=== PATIENT | female | born 1970 | race Caucasian/White ===

== ENCOUNTER 2016-09-02 13:30 | Inpatient (IN) | payer MEDICAID ==
[~2016-09-02] VITALS: Ht 162.6 cm; Wt 61.4 kg
[~2016-09-02 13:30] MED LIST: ALPR0.25 PO; BENA5TAB14 PO; SERT-135 PO
[2016-09-02 15:00] LABS: Albumin 3.5 g/dL (3.4-5.0); Calcium 8.6 mg/dL (8.5-10.1); Potassium 3.8 mmol/L (3.5-5.1)
[2016-09-02 15:05] LABS: Bilirubin, Total 0.2 mg/dL (0.2-1.0); Total Protein 7.3 g/dL (6.4-8.2)
[2016-09-02] MEDS ORDERED: PIPERACILLIN-TAZOB 3.375GM 100 ML IV ONE (16:30)
[2016-09-02 16:56] LABS: Basophils # (auto) 0 uL; Basophils % (auto) 0.3 % (0.0-2.0); Eosinophils # (auto) 0.2 uL; Hematocrit 43.6 % (36.0-46.0); Hemoglobin 13.7 g/dL (12.2-16.2); Lymphocytes # (auto) 1.7 uL; Mean Corpuscular Hemoglobin 27.1 pg (28.0-32.0); Mean Corpuscular Hgb Conc. 31.4 g/dL (32.0-36.0); Mean Corpuscular Volume 86.4 fL (80.0-100.0); Mean Platelet Volume 8.7 fL (7.4-10.4); Monocytes # (auto) 0.6 uL; Monocytes % (auto) 5.8 % (0.0-12.0); Neutrophils % (auto) 75.9 % (37.0-80.0); Platelet Count (auto) 385 10^3/uL (140-450); Red Cell Distribution Width 14.7 % (11.6-16.0); White Blood Cell 10.6 10^3/uL (4.4-10.8)
[2016-09-02] MEDS: SODIUM CHLORIDE 0.9% 1,000 ML IV SCH ×2 (16:58→21:46)
[2016-09-02] MEDS ORDERED: HYDROcodone-ACET 5/325MG TAB PO PRN (17:00)
[2016-09-02] MEDS ORDERED: MORPHINE SULF INJ 2 MG/ML SYRINGE 1ML IV PRN (17:00)
[2016-09-02] MEDS ORDERED: ALPRAZolam 0.25 MG TAB PO PRN (17:00)
[2016-09-02] MEDS ORDERED: TEMAZEPAM 15 MG CAP PO PRN (17:00)
[2016-09-02] MEDS ORDERED: PANTOPRAZOLE SODIUM 40 MG/10 ML VIAL IV ONE (17:00)
[2016-09-02] MEDS ORDERED: NITROGLYCERIN 0.4 MG SL TAB SL PRN (17:00)
[2016-09-02] MEDS ORDERED: cloNIDine HCL 0.1 MG TAB PO PRN (17:00)
[2016-09-02] MEDS: BENAZEPRIL HCL 10 MG TAB PO SCH (17:04)
[2016-09-02] MEDS: MORPHINE SULF INJ 2 MG/ML SYRINGE 1ML IV PRN ×2 (17:04→21:47)
[2016-09-02] MEDS: MULTIPLE VITAMIN TAB PO SCH (17:04)
[2016-09-02] MEDS: ONDANSETRON HCL 4 MG/2 ML VIAL IV PRN (17:04)
[2016-09-02] MEDS ORDERED: cefTRIAXone 1GM/50ML D5W 50 ML IV ONE (17:15)
[2016-09-02] MEDS ORDERED: metroNIDAZOLE 500MG/100ML 100 ML IV ONE (17:15)
[2016-09-02 17:31] LABS: INR 0.98 (0.9-1.15); Prothrombin Time 10.1 sec (9.37-12.3)
[2016-09-02 19:58] LABS: Urine Bilirubin Negative (Negative); Urine Blood Negative /uL (Negative); Urine Color Yellow (Yellow); Urine Glucose Normal (Normal); Urine Ketone Negative (Negative); Urine Mucus FEW (None Seen); Urine Nitrite Negative (Negative); Urine RBC <1 /hpf (0 - 4); Urine Squamous Epithelial Cell FEW /hpf (<5); Urine Urobilinogen Normal (Negative); Urine pH 5.5 (5.0-8.0)
[2016-09-02] MEDS: metroNIDAZOLE 500MG/100ML 100 ML IV SCH (21:46)
[2016-09-02] MEDS: PANTOPRAZOLE SODIUM 40 MG/10 ML VIAL IV SCH (21:46)
[2016-09-02] MEDS ORDERED: FAMOTIDINE 20 MG TAB PO SCH (22:00)
[2016-09-02 22:03] VITALS: BP 90/65
[2016-09-03] MEDS: MORPHINE SULF INJ 2 MG/ML SYRINGE 1ML IV PRN ×3 (02:11→09:44)
[2016-09-03 04:39] VITALS: BP 99/58
[2016-09-03] MEDS: metroNIDAZOLE 500MG/100ML 100 ML IV SCH ×3 (05:21→21:42)
[2016-09-03 06:17] LABS: Basophils # (auto) 0 uL; Basophils % (auto) 0.3 % (0.0-2.0); DEFINITIVE VIEW TRANSMISSION; Eosinophils # (auto) 0.1 uL; Eosinophils % (auto) 1.6 % (0.0-7.0); Hematocrit 37.8 % (36.0-46.0); Hemoglobin 11.7 g/dL (12.2-16.2); Lymphocytes # (auto) 1.7 uL; Lymphocytes % (auto) 18.1 % (10.0-50.0); Mean Corpuscular Hemoglobin 26.7 pg (28.0-32.0); Mean Corpuscular Hgb Conc. 30.9 g/dL (32.0-36.0); Mean Corpuscular Volume 86.3 fL (80.0-100.0); Mean Platelet Volume 7.9 fL (7.4-10.4); Monocytes # (auto) 0.6 uL; Monocytes % (auto) 6.8 % (0.0-12.0); Neutrophils # (auto) 6.7 uL; Neutrophils % (auto) 73.2 % (37.0-80.0); Platelet Count (auto) 322 10^3/uL (140-450); Red Cell Distribution Width 14.4 % (11.6-16.0); White Blood Cell 9.2 10^3/uL (4.4-10.8)
[2016-09-03 07:00] LABS: Albumin 2.8 g/dL (3.4-5.0); BUN/Creatinine Ratio 9.7; Bilirubin, Total 0.4 mg/dL (0.2-1.0); Calcium 7.9 mg/dL (8.5-10.1); Potassium 4.1 mmol/L (3.5-5.1)
[2016-09-03 08:37] VITALS: BP 95/70
[2016-09-03] MEDS: PANTOPRAZOLE SODIUM 40 MG/10 ML VIAL IV SCH ×2 (09:42→21:42)
[2016-09-03] MEDS: cefTRIAXone 1GM/50ML D5W 50 ML IV SCH (09:42)
[2016-09-03] MEDS: MULTIPLE VITAMIN TAB PO SCH (09:42)
[2016-09-03] MEDS: BENAZEPRIL HCL 10 MG TAB PO SCH (09:43)
[2016-09-03] MEDS: SODIUM CHLORIDE 0.9% 1,000 ML IV SCH ×2 (09:52→17:50)
[2016-09-03 13:19] VITALS: BP 123/73
[2016-09-03 13:21] VITALS: BP 123/73
[2016-09-03] MEDS: HYDROmorphone HCL 2 MG/ML VL IV PRN ×3 (13:57→21:43)
[2016-09-03 17:12] VITALS: BP 108/63
[2016-09-03] MEDS: BOOST PLUS 8 ounce PO SCH (18:13)
[2016-09-03 18:24] LABS: Hematocrit 35.1 % (36.0-46.0)
[2016-09-03 22:10] VITALS: BP 123/75
[2016-09-03] MEDS ORDERED: diphenhdrAMINE HCL 50 MG/1 ML VL IV ONE (23:00)
[2016-09-03] MEDS: ONDANSETRON HCL 4 MG/2 ML VIAL IV PRN (23:18)
[2016-09-04] MEDS: SODIUM CHLORIDE 0.9% 1,000 ML IV SCH ×4 (04:53→23:57)
[2016-09-04] MEDS: HYDROmorphone HCL 2 MG/ML VL IV PRN ×5 (04:53→22:09)
[2016-09-04 05:11] VITALS: BP 125/75
[2016-09-04 06:02] LABS: Basophils # (auto) 0 uL; Basophils % (auto) 0.4 % (0.0-2.0); DEFINITIVE VIEW TRANSMISSION; Eosinophils # (auto) 0.1 uL; Eosinophils % (auto) 2.1 % (0.0-7.0); Hematocrit 35.8 % (36.0-46.0); Hemoglobin 11.1 g/dL (12.2-16.2); Lymphocytes % (auto) 29.2 % (10.0-50.0); Mean Corpuscular Hemoglobin 26.7 pg (28.0-32.0); Mean Corpuscular Hgb Conc. 30.9 g/dL (32.0-36.0); Mean Corpuscular Volume 86.3 fL (80.0-100.0); Mean Platelet Volume 8.1 fL (7.4-10.4); Monocytes # (auto) 0.5 uL; Monocytes % (auto) 7.8 % (0.0-12.0); Neutrophils # (auto) 4.2 uL; Neutrophils % (auto) 60.5 % (37.0-80.0); Platelet Count (auto) 308 10^3/uL (140-450); White Blood Cell 6.9 10^3/uL (4.4-10.8)
[2016-09-04 06:38] LABS: Albumin 2.8 g/dL (3.4-5.0); BUN/Creatinine Ratio 9.3; Calcium 8.1 mg/dL (8.5-10.1)
[2016-09-04] MEDS: metroNIDAZOLE 500MG/100ML 100 ML IV SCH ×3 (06:40→22:18)
[2016-09-04 06:41] LABS: Bilirubin, Total 0.3 mg/dL (0.2-1.0); Total Protein 5.9 g/dL (6.4-8.2)
[2016-09-04] MEDS: ACETAMINOPHEN 325 MG TAB PO PRN ×4 (06:50→21:05)
[2016-09-04] MEDS: BOOST PLUS 8 ounce PO SCH ×3 (08:00→18:00)
[2016-09-04 09:00] VITALS: BP 116/71
[2016-09-04] MEDS: PANTOPRAZOLE SODIUM 40 MG/10 ML VIAL IV SCH ×2 (09:35→22:18)
[2016-09-04] MEDS: MULTIPLE VITAMIN TAB PO SCH (09:35)
[2016-09-04] MEDS: cefTRIAXone 1GM/50ML D5W 50 ML IV SCH (09:35)
[2016-09-04] MEDS: BENAZEPRIL HCL 10 MG TAB PO SCH (09:35)
[2016-09-04 13:00] VITALS: BP 105/62
[2016-09-04 17:05] VITALS: BP 133/71
[2016-09-04 21:30] VITALS: BP 131/76
[2016-09-05] MEDS ORDERED: diphenhdrAMINE HCL 50 MG/1 ML VL IV ONE
[2016-09-05 05:39] VITALS: BP 154/94
[2016-09-05] MEDS: ACETAMINOPHEN 325 MG TAB PO PRN (07:03)
[2016-09-05] MEDS: BOOST PLUS 8 ounce PO SCH ×2 (08:41→11:13)
[2016-09-05] MEDS: cefTRIAXone 1GM/50ML D5W 50 ML IV SCH (09:12)
[2016-09-05 09:28] VITALS: BP 138/91
[2016-09-05 10:08] LABS: Hematocrit 37.1 % (36.0-46.0); Hemoglobin 11.4 g/dL (12.2-16.2)
[2016-09-05] MEDS: PANTOPRAZOLE SODIUM 40 MG/10 ML VIAL IV SCH (10:22)
[2016-09-05] MEDS: MULTIPLE VITAMIN TAB PO SCH (10:25)
[2016-09-05] MEDS: BENAZEPRIL HCL 10 MG TAB PO SCH (10:25)
[2016-09-05] MEDS: SODIUM CHLORIDE 0.9% 1,000 ML IV SCH (10:26)
[2016-09-05 13:00] VITALS: BP 147/93
== END 2016-09-05 16:56 | disposition home or self-care (01) | DRG 244 ==
LOC: EDUNIT# 13:30 → ER 13:33 → TELE 13:34 → TELE-CENTR 20:22 → CENTRAL 09-04 15:19
PROVIDERS: ADMIT Internal Medicine; ATTEND Internal Medicine Pulmonary Disease
DX: K57.33 Diverticulitis of large intestine without perforation or abscess with bleeding (principal); K85.90 Acute pancreatitis without necrosis or infection, unspecified; E44.0 Moderate protein-calorie malnutrition; E88.09 Other disorders of plasma-protein metabolism, not elsewhere classified; I10 Essential (primary) hypertension; E86.0 Dehydration; F41.9 Anxiety disorder, unspecified; F32.9 Major depressive disorder, single episode, unspecified; Z87.11 Personal history of peptic ulcer disease; D63.8 Anemia in other chronic diseases classified elsewhere; Z82.3 Family history of stroke; Z82.49 Family history of ischemic heart disease and other diseases of the circulatory system; Z83.3 Family history of diabetes mellitus; K57.90 Diverticulosis of intestine, part unspecified, without perforation or abscess without bleeding; Z98.51 Tubal ligation status; Z80.9 Family history of malignant neoplasm, unspecified; F17.200 Nicotine dependence, unspecified, uncomplicated; Z68.23 Body mass index [BMI] 23.0-23.9, adult; K52.9 Noninfective gastroenteritis and colitis, unspecified
CPT/HCPCS: 36415; 74176; 80053; 81001; 82150; 83540; 83605; 83690; 84702; 85014; 85018; 85025; 85610; 85652; 87040; 87045; 87493; 87899; 96365; 96367; 96368; 96375; C9113; J0696; J2405; J2543; J3490

== ENCOUNTER 2016-11-04 15:17 | Emergency (ER) | payer MEDICAID ==
[~2016-11-04] VITALS: Ht 167.6 cm; Wt 72.6 kg
[2016-11-04 16:15] LABS: Basophils # (auto) 0 uL; Basophils % (auto) 0.4 % (0.0-2.0); Eosinophils # (auto) 0.3 uL; Eosinophils % (auto) 2.7 % (0.0-7.0); Hematocrit 43.5 % (36.0-46.0); Hemoglobin 14.1 g/dL (12.2-16.2); Lymphocytes # (auto) 2.4 uL; Lymphocytes % (auto) 21.1 % (10.0-50.0); Mean Corpuscular Hemoglobin 27.4 pg (28.0-32.0); Mean Corpuscular Hgb Conc. 32.5 g/dL (32.0-36.0); Mean Corpuscular Volume 84.3 fL (80.0-100.0); Mean Platelet Volume 8.2 fL (7.4-10.4); Monocytes # (auto) 1.1 uL; Monocytes % (auto) 9.3 % (0.0-12.0); Neutrophils # (auto) 7.7 uL; Neutrophils % (auto) 66.5 % (37.0-80.0); Platelet Count (auto) 400 10^3/uL (140-450); Red Cell Distribution Width 15.3 % (11.6-16.0); White Blood Cell 11.6 10^3/uL (4.4-10.8)
[2016-11-04 16:43] LABS: Albumin 3.8 g/dL (3.4-5.0); BUN/Creatinine Ratio 26.4; Bilirubin, Total 0.6 mg/dL (0.2-1.0); Calcium 9.1 mg/dL (8.5-10.1); Potassium 3.6 mmol/L (3.5-5.1); Total Protein 8.1 g/dL (6.4-8.2)
[2016-11-04] MEDS ORDERED: SODIUM CHLORIDE 0.9% 2,000 ML IV ONE (23:00)
[2016-11-04] MEDS ORDERED: ONDANSETRON HCL 4 MG/2 ML VIAL IV ONE (23:00)
[2016-11-04] MEDS ORDERED: MORPHINE SULFATE 4 MG/ML SYRG IV ONE (23:00)
[2016-11-05] MEDS ORDERED: IOHEXOL 300 MG/ML 100ML BOTTLE IJ ONE
[2016-11-05 02:05] LABS: Urine RBC None Seen /hpf (0 - 4)
[2016-11-05 02:26] LABS: Urine Bilirubin Negative (Negative); Urine Blood Negative /uL (Negative); Urine Color Yellow (Yellow); Urine Glucose Normal (Normal); Urine Ketone Negative (Negative); Urine Nitrite Negative (Negative); Urine Squamous Epithelial Cell FEW /hpf (<5); Urine Urobilinogen Normal (Negative); Urine pH 5.5 (5.0-8.0)
[2016-11-05 04:28] VITALS: BP 96/57
== END 2016-11-05 04:33 | disposition home or self-care (01) ==
LOC: ER 15:17 → EDUNIT# 15:17 → EDBD 15:17 → ER 11-05 04:33
DX: R10.30 Lower abdominal pain, unspecified (principal); I10 Essential (primary) hypertension; Z87.11 Personal history of peptic ulcer disease; Z98.51 Tubal ligation status
CPT/HCPCS: 36415; 74177; 80053; 81001; 81025; 84702; 85025; 94761; 96361; 96374; 96375; 99285; J2270; J2405; J7030; Q9967

== ENCOUNTER 2016-11-29 15:15 | Observation (INO) | payer MEDICAID ==
[~2016-11-29] VITALS: Ht 172.7 cm; Wt 72.6 kg
[2016-11-29] MEDS ORDERED: SODIUM CHLORIDE 0.9% 1,000 ML IVB ONE (17:12)
[2016-11-29] MEDS ORDERED: METOCLOPRAMIDE HCL 5MG/ml INJ 2ml VIAL IV ONE (17:15)
[2016-11-29] MEDS ORDERED: NALBUPHINE HCL 10 MG/1ml INJECTION IV ONE (17:15)
[2016-11-29 17:35] LABS: Urine Bilirubin Negative (Negative); Urine Color Yellow (Yellow); Urine Glucose Normal (Normal); Urine Mucus FEW (None Seen); Urine Nitrite Negative (Negative); Urine RBC 132 /hpf (0 - 4); Urine Squamous Epithelial Cell FEW /hpf (<5); Urine Urobilinogen Normal (Negative); Urine pH 5.5 (5.0-8.0)
[2016-11-29 17:43] LABS: Basophils # (auto) 0 uL; Eosinophils # (auto) 0.1 uL; Eosinophils % (auto) 0.9 % (0.0-7.0); Hemoglobin 13.3 g/dL (12.2-16.2); Lymphocytes # (auto) 0.4 uL; Lymphocytes % (auto) 4.3 % (10.0-50.0); Mean Corpuscular Hemoglobin 27.5 pg (28.0-32.0); Mean Corpuscular Hgb Conc. 32.5 g/dL (32.0-36.0); Mean Corpuscular Volume 84.6 fL (80.0-100.0); Mean Platelet Volume 8.1 fL (7.4-10.4); Monocytes # (auto) 0.5 uL; Monocytes % (auto) 5.1 % (0.0-12.0); Neutrophils # (auto) 8.3 uL; Neutrophils % (auto) 89.7 % (37.0-80.0); Platelet Count (auto) 297 10^3/uL (140-450); Red Cell Distribution Width 15.6 % (11.6-16.0); White Blood Cell 9.2 10^3/uL (4.4-10.8)
[2016-11-29 17:49] LABS: Urine Blood 2+ /uL (Negative); Urine Ketone 1+ (Negative)
[2016-11-29 17:54] LABS: Albumin 3.3 g/dL (3.4-5.0); BUN/Creatinine Ratio 15.6; Bilirubin, Total 0.9 mg/dL (0.2-1.0); Calcium 8.3 mg/dL (8.5-10.1); Potassium 3.5 mmol/L (3.5-5.1); Total Protein 6.7 g/dL (6.4-8.2)
[2016-11-29 20:31] VITALS: BP 125/72
== END 2016-11-29 20:23 | disposition home or self-care (01) | DRG 463 ==
LOC: EDBD 15:15 → ER 15:23 → OVERFLOW 17:14 → ER 20:23
PROVIDERS: ADMIT Emergency Medicine; ATTEND Emergency Medicine
DX: N39.0 Urinary tract infection, site not specified (principal); I10 Essential (primary) hypertension; F41.9 Anxiety disorder, unspecified; F32.9 Major depressive disorder, single episode, unspecified; Z82.49 Family history of ischemic heart disease and other diseases of the circulatory system; Z87.11 Personal history of peptic ulcer disease; Z83.3 Family history of diabetes mellitus; Z82.3 Family history of stroke
CPT/HCPCS: 36415; 74176; 80053; 81001; 83690; 83735; 84443; 85025; 93005; 96374; 96375; 99285; G0378; J2300; J2765

== ENCOUNTER 2017-01-12 11:37 | Emergency (ER) | payer MEDICAID ==
[~2017-01-12] VITALS: Ht 162.6 cm; Wt 72.6 kg
[2017-01-12] MEDS ORDERED: ACTIVATED CHARCOAL 50 GM/240 ML SOL PO ONE (12:00)
[2017-01-12] MEDS ORDERED: SODIUM CHLORIDE 0.9% 1,000 ML IV ONE (12:10)
[2017-01-12 12:34] LABS: Basophils # (auto) 0.1 uL; Basophils % (auto) 0.4 % (0.0-2.0); CONDITION Y; Eosinophils # (auto) 0 uL; Eosinophils % (auto) 0.2 % (0.0-7.0); Hematocrit 41.7 % (36.0-46.0); Hemoglobin 13.7 g/dL (12.2-16.2); Lymphocytes # (auto) 2.1 uL; Lymphocytes % (auto) 17.9 % (10.0-50.0); Mean Corpuscular Hemoglobin 27.5 pg (28.0-32.0); Mean Corpuscular Hgb Conc. 32.9 g/dL (32.0-36.0); Mean Corpuscular Volume 83.8 fL (80.0-100.0); Mean Platelet Volume 8.2 fL (7.4-10.4); Monocytes # (auto) 0.9 uL; Monocytes % (auto) 7.4 % (0.0-12.0); Neutrophils # (auto) 8.7 uL; Neutrophils % (auto) 74.1 % (37.0-80.0); Platelet Count (auto) 368 10^3/uL (140-450); Red Cell Distribution Width 16.9 % (11.6-16.0); White Blood Cell 11.7 10^3/uL (4.4-10.8)
[2017-01-12 13:12] LABS: Potassium 3.8 mmol/L (3.5-5.1)
[2017-01-12 13:17] LABS: Albumin 3.8 g/dL (3.4-5.0); BUN/Creatinine Ratio 21.8
[2017-01-12 13:19] LABS: Salicylate < 1.7 mg/dL (2.8-20.0)
[2017-01-12 13:21] LABS: Acetaminophen < 2.0 ug/mL (10-30)
[2017-01-12 13:26] LABS: Bilirubin, Total 0.8 mg/dL (0.2-1.0); Total Protein 7.7 g/dL (6.4-8.2)
[2017-01-12] MEDS ORDERED: LORazepam 2MG/ML-1ML VIAL IV ONE (13:45)
[2017-01-12 17:09] LABS: Urine Bilirubin Negative (Negative); Urine Blood Negative /uL (Negative); Urine Color Yellow (Yellow); Urine Glucose Normal (Normal); Urine Hyaline Cast FEW /lpf (0 - 2); Urine Ketone TRACE (Negative); Urine Mucus FEW (None Seen); Urine Nitrite Negative (Negative); Urine RBC 1 /hpf (0 - 4); Urine Squamous Epithelial Cell FEW /hpf (<5); Urine Urobilinogen Normal (Negative); Urine pH 5.5 (5.0-8.0)
[2017-01-12 19:09] VITALS: BP 151/98
[2017-01-12] MEDS ORDERED: TEMAZEPAM 15 MG CAP PO ONE (23:00)
== END 2017-01-13 11:34 | disposition home or self-care (01) ==
LOC: EDBD 11:37 → ER 11:39
DX: R10.9 Unspecified abdominal pain (principal); R11.2 Nausea with vomiting, unspecified; R45.851 Suicidal ideations; R51 Headache; F32.9 Major depressive disorder, single episode, unspecified; I10 Essential (primary) hypertension; F17.210 Nicotine dependence, cigarettes, uncomplicated; F15.10 Other stimulant abuse, uncomplicated; Z98.51 Tubal ligation status
CPT/HCPCS: 36415; 74176; 80053; 80307; 80329; 81001; 84702; 85025; 93005; 94761; 96361; 96374; 99285; J2060; J7030

== ENCOUNTER 2017-12-31 06:58 | Emergency (ER) | payer MEDICAID ==
[~2017-12-31] VITALS: Ht 162.6 cm; Wt 57.2 kg
[2017-12-31] MEDS ORDERED: SODIUM CHLORIDE 0.9% 1,000 ML IV ONE (07:53)
[2017-12-31] MEDS ORDERED: KETOROLAC TROMETH 30 MG/ML 1ML VIAL IV ONE (08:00)
[2017-12-31] MEDS ORDERED: diphenhdrAMINE HCL 50 MG/1 ML VL IV ONE (08:00)
[2017-12-31] MEDS ORDERED: LORazepam 2MG/ML-1ML VIAL IV ONE (08:00)
[2017-12-31 08:16] LABS: Basophils # (auto) 0.1 uL; Basophils % (auto) 0.7 % (0.0-2.0); Eosinophils # (auto) 0.1 uL; Eosinophils % (auto) 0.7 % (0.0-7.0); Hematocrit 46.1 % (36.0-46.0); Hemoglobin 15.1 g/dL (12.2-16.2); Lymphocytes # (auto) 1.2 uL; Lymphocytes % (auto) 11.1 % (10.0-50.0); Mean Corpuscular Hemoglobin 28.1 pg (28.0-32.0); Mean Corpuscular Hgb Conc. 32.8 g/dL (32.0-36.0); Mean Corpuscular Volume 85.7 fL (80.0-100.0); Monocytes # (auto) 0.7 uL; Monocytes % (auto) 6.3 % (0.0-12.0); Neutrophils # (auto) 9.1 uL; Neutrophils % (auto) 81.2 % (37.0-80.0); Nucleated Red Blood Cells % 0.1 %; Platelet Count (auto) 312 10^3/uL (140-450); Red Blood Cells 5.38 10^6/uL (4.0-5.20); Red Cell Distribution Width 14.7 % (11.8-14.3); White Blood Cell 11.2 10^3/uL (4.4-10.8)
[2017-12-31 08:34] LABS: Albumin 3.7 g/dL (3.4-5.0); BUN/Creatinine Ratio 15.9; Bilirubin, Total 0.2 mg/dL (0.2-1.0); Calcium 9.3 mg/dL (8.5-10.1)
[2017-12-31 11:00] VITALS: BP 156/88
[2017-12-31 15:47] LABS: Urine Pregnacy Test Negative (Negative)
[2017-12-31 15:55] LABS: Urine Amorphous Crystal FEW /hpf (None Seen); Urine Bacteria FEW /hpf (None Seen); Urine Blood Negative /uL (Negative); Urine Mucus FEW (None Seen); Urine Specific Gravity 1.019 (1.001-1.035); Urine WBC 5 /hpf (0 - 5)
[2017-12-31 16:22] LABS: Alcohol, Urine < 3.0 mg/dL (0-5); Amphetamine Screen, Urine POSITIVE (NEGATIVE); Barbiturate Scree,Urine NEGATIVE (NEGATIVE); Benzodiazephine Screen, Urine NEGATIVE (NEGATIVE); Cannabinoid Screen, Urine NEGATIVE (NEGATIVE); Cocaine Screen, Urine NEGATIVE (NEGATIVE); Opiate Scree,Urine NEGATIVE (NEGATIVE); Phencyclidine Screen, Urine NEGATIVE (NEGATIVE)
== END 2017-12-31 14:29 | disposition home or self-care (01) ==
LOC: ER 06:58 → EDBD 06:58 → ER 14:29
DX: H60.8X1 Other otitis externa, right ear (principal); F15.10 Other stimulant abuse, uncomplicated; I10 Essential (primary) hypertension; F17.210 Nicotine dependence, cigarettes, uncomplicated
CPT/HCPCS: 36415; 80053; 80307; 81001; 81025; 85025; 94761; 96374; 96375; 99284; J1200; J1885; J2060; J7030

== ENCOUNTER 2018-06-22 19:12 | Emergency (ER) | payer MEDICAID ==
[~2018-06-22] VITALS: Ht 167.6 cm; Wt 77.1 kg
[2018-06-22 21:17] LABS: Albumin 3.4 g/dL (3.4-5.0); Calcium 8.9 mg/dL (8.5-10.1); Potassium 3.5 mmol/L (3.5-5.1)
[2018-06-22 21:19] LABS: BUN/Creatinine Ratio 19.1; Bilirubin, Total 0.4 mg/dL (0.2-1.0); Total Protein 6.9 g/dL (6.4-8.2)
[2018-06-22 21:25] LABS: Basophils # (auto) 0 uL; Basophils % (auto) 0.6 % (0.0-2.0); Eosinophils # (auto) 0.2 uL; Eosinophils % (auto) 3.1 % (0.0-7.0); Hematocrit 41.9 % (36.0-46.0); Hemoglobin 13.8 g/dL (12.2-16.2); Lymphocytes # (auto) 2.3 uL; Lymphocytes % (auto) 29.8 % (10.0-50.0); Mean Corpuscular Hemoglobin 28.6 pg (28.0-32.0); Mean Corpuscular Hgb Conc. 32.8 g/dL (32.0-36.0); Mean Corpuscular Volume 87.2 fL (80.0-100.0); Monocytes # (auto) 0.6 uL; Neutrophils # (auto) 4.5 uL; Neutrophils % (auto) 58.5 % (37.0-80.0); Nucleated Red Blood Cells % 0.1 %; Platelet Count (auto) 284 10^3/uL (140-450); Red Blood Cells 4.81 10^6/uL (4.0-5.20); Red Cell Distribution Width 15.1 % (11.8-14.3); White Blood Cell 7.7 10^3/uL (4.4-10.8)
[2018-06-23 02:39] LABS: INR 0.96 (0.9-1.15); Prothrombin Time 10.3 sec (9.27-12.13)
[2018-06-23 02:47] VITALS: BP 111/66
[2018-06-23] MEDS ORDERED: medroxyPROGESTERone ACETATE 5 MG TAB PO ONE (04:00)
== END 2018-06-23 04:39 | disposition home or self-care (01) ==
LOC: EDBD 19:12 → ER 19:19
DX: N93.8 Other specified abnormal uterine and vaginal bleeding (principal); F41.9 Anxiety disorder, unspecified; R42 Dizziness and giddiness; I10 Essential (primary) hypertension; F32.9 Major depressive disorder, single episode, unspecified; F17.210 Nicotine dependence, cigarettes, uncomplicated; F12.10 Cannabis abuse, uncomplicated; F15.10 Other stimulant abuse, uncomplicated; Z87.11 Personal history of peptic ulcer disease; Z98.51 Tubal ligation status
CPT/HCPCS: 36415; 76830; 76856; 80053; 85025; 85610; 85730

== ENCOUNTER 2018-11-06 09:31 | Emergency (ER) | payer MEDICAID ==
[~2018-11-06] VITALS: Ht 162.6 cm; Wt 65.8 kg
[2018-11-06 09:35] VITALS: BP 171/97
[2018-11-06] MEDS ORDERED: KETOROLAC TROMETH 60MG/2ML VIAL IM ONE (10:00)
[2018-11-06] MEDS ORDERED: METHOCARBAMOL 500 MG TAB PO ONE (10:00)
== END 2018-11-06 10:47 | disposition home or self-care (01) ==
LOC: EDBD 09:31 → ER 09:31
DX: G89.29 Other chronic pain (principal); M54.5 Low back pain; F41.9 Anxiety disorder, unspecified; F17.210 Nicotine dependence, cigarettes, uncomplicated; F12.10 Cannabis abuse, uncomplicated; F15.10 Other stimulant abuse, uncomplicated; I10 Essential (primary) hypertension; F32.9 Major depressive disorder, single episode, unspecified; Z87.11 Personal history of peptic ulcer disease; Z79.899 Other long term (current) drug therapy; Z98.51 Tubal ligation status
CPT/HCPCS: 96372; 99283; J1885

== ENCOUNTER 2018-11-15 01:03 | Emergency (ER) | payer MEDICAID ==
[~2018-11-15] VITALS: Ht 160 cm; Wt 77.1 kg
[2018-11-15 01:44] LABS: Basophils # (auto) 0.1 uL; Basophils % (auto) 0.6 % (0.0-2.0); Eosinophils # (auto) 0.2 uL; Eosinophils % (auto) 1.9 % (0.0-7.0); Hematocrit 47.7 % (36.0-46.0); Hemoglobin 15.8 g/dL (12.2-16.2); Lymphocytes % (auto) 30.1 % (10.0-50.0); Mean Corpuscular Hemoglobin 28.9 pg (28.0-32.0); Mean Corpuscular Hgb Conc. 33.1 g/dL (32.0-36.0); Mean Corpuscular Volume 87.2 fL (80.0-100.0); Monocytes # (auto) 0.8 uL; Monocytes % (auto) 8.5 % (0.0-12.0); Neutrophils # (auto) 5.9 uL; Neutrophils % (auto) 58.9 % (37.0-80.0); Nucleated Red Blood Cells % 0.1 %; Platelet Count (auto) 308 10^3/uL (140-450); Red Blood Cells 5.47 10^6/uL (4.0-5.20); Red Cell Distribution Width 15.1 % (11.8-14.3)
[2018-11-15 01:57] LABS: Chloride 105 mmol/L (98-107); Potassium 3.9 mmol/L (3.5-5.1); Sodium 137 mmol/L (136-145)
[2018-11-15 02:00] LABS: Albumin 3.4 g/dL (3.4-5.0); Amylase 69 U/L (25-115); Anion Gap 4 (5-15); Blood Urea Nitrogen 20 mg/dL (7-18); Calcium 8.9 mg/dL (8.5-10.1); Carbon Dioxide 28 mmol/L (21-32); Glucose 104 mg/dL (74-106); Lipase 217 U/L (73-393)
[2018-11-15 02:05] LABS: Alanine Aminotransferase 25 U/L (13-56); Alkaline Phosphatase 57 U/L (45-117); Aspartate Aminotransferase 20 U/L (15-37); BUN/Creatinine Ratio 22.5; GFR African American 86 mL/min; GFR Non-African American 71 mL/min; Total Protein 7.3 g/dL (6.4-8.2)
[2018-11-15 02:16] LABS: Bilirubin, Total 0.2 mg/dL (0.2-1.0)
[2018-11-15] MEDS ORDERED: ONDANSETRON HCL 4 MG/2 ML VIAL ONE (04:13)
[2018-11-15] MEDS ORDERED: KETOROLAC TROMETH 30 MG/ML 1ML VIAL ONE (04:13)
[2018-11-15] MEDS ORDERED: MORPHINE SULFATE 4 MG/ML SYR/VIAL IV ONE (04:15)
[2018-11-15] MEDS ORDERED: KETOROLAC TROMETH 30 MG/ML 1ML VIAL IV ONE (04:15)
[2018-11-15] MEDS ORDERED: SODIUM CHLORIDE 0.9% 1,000 ML IV ONE (04:15)
[2018-11-15] MEDS ORDERED: ONDANSETRON HCL 4 MG/2 ML VIAL IV ONE (04:30)
[2018-11-15 04:38] LABS: Alcohol, Urine < 3.0 mg/dL (0-5); Amphetamine Screen, Urine NEGATIVE (NEGATIVE); Barbiturate Scree,Urine NEGATIVE (NEGATIVE); Benzodiazephine Screen, Urine POSITIVE (NEGATIVE); Cannabinoid Screen, Urine NEGATIVE (NEGATIVE); Cocaine Screen, Urine NEGATIVE (NEGATIVE); Opiate Scree,Urine NEGATIVE (NEGATIVE); Phencyclidine Screen, Urine NEGATIVE (NEGATIVE); Urine Bacteria NONE SEEN /hpf (None Seen); Urine Blood Negative /uL (Negative); Urine Specific Gravity 1.021 (1.001-1.035); Urine WBC 1 /hpf (0 - 5)
[2018-11-15 05:30] VITALS: BP 105/61
== END 2018-11-15 06:06 | disposition home or self-care (01) ==
LOC: EDBD 01:03 → ER 01:06
DX: K52.9 Noninfective gastroenteritis and colitis, unspecified (principal); T62.91XA Toxic effect of unspecified noxious substance eaten as food, accidental (unintentional), initial encounter; I10 Essential (primary) hypertension; Z98.51 Tubal ligation status; F17.210 Nicotine dependence, cigarettes, uncomplicated; F12.90 Cannabis use, unspecified, uncomplicated; F15.90 Other stimulant use, unspecified, uncomplicated; Z79.899 Other long term (current) drug therapy; Y92.89 Other specified places as the place of occurrence of the external cause
CPT/HCPCS: 36415; 74176; 80053; 80307; 80320; 81001; 81025; 82150; 83690; 84484; 84702; 85025; 93005; 96361; 96374; 96375; 99284; J2270; J2405; J7030; J1885

== ENCOUNTER 2018-11-18 01:30 | Emergency (ER) | payer MEDICAID ==
[~2018-11-18] VITALS: Ht 160 cm; Wt 72.6 kg
[2018-11-18 03:57] LABS: Basophils # (auto) 0.1 uL; Basophils % (auto) 0.9 % (0.0-2.0); Eosinophils # (auto) 0.1 uL; Eosinophils % (auto) 1.5 % (0.0-7.0); Hematocrit 46.1 % (36.0-46.0); Hemoglobin 15.8 g/dL (12.2-16.2); Lymphocytes # (auto) 2.2 uL; Mean Corpuscular Hemoglobin 29.8 pg (28.0-32.0); Mean Corpuscular Hgb Conc. 34.3 g/dL (32.0-36.0); Monocytes # (auto) 0.6 uL; Monocytes % (auto) 6.7 % (0.0-12.0); Neutrophils # (auto) 5.4 uL; Neutrophils % (auto) 64.9 % (37.0-80.0); Nucleated Red Blood Cells % 0.1 %; Platelet Count (auto) 286 10^3/uL (140-450); Red Blood Cells 5.31 10^6/uL (4.0-5.20); White Blood Cell 8.3 10^3/uL (4.4-10.8)
[2018-11-18 04:16] LABS: Albumin 3.5 g/dL (3.4-5.0); Anion Gap 8 (5-15); BUN/Creatinine Ratio 21.8; Blood Urea Nitrogen 17 mg/dL (7-18); Calcium 8.5 mg/dL (8.5-10.1); Carbon Dioxide 24 mmol/L (21-32); Chloride 106 mmol/L (98-107); GFR African American 101 mL/min; GFR Non-African American 83 mL/min; Glucose 119 mg/dL (74-106); Potassium 3.9 mmol/L (3.5-5.1); Sodium 138 mmol/L (136-145)
[2018-11-18 04:21] LABS: Alanine Aminotransferase 31 U/L (13-56); Alkaline Phosphatase 41 U/L (45-117); Aspartate Aminotransferase 21 U/L (15-37); Bilirubin, Total 0.3 mg/dL (0.2-1.0); Total Protein 7.3 g/dL (6.4-8.2)
[2018-11-18 04:34] LABS: INR 0.94 (0.9-1.15); Partial Thromboplastin Time 29.3 sec (23.78-33.04); Prothrombin Time 10.1 sec (9.27-12.13)
[2018-11-18] MEDS ORDERED: IOHEXOL 300 MG/ML 100ML BOTTLE IJ ONE (08:09)
[2018-11-18 09:00] VITALS: BP 127/88
[2018-11-18 09:11] LABS: Amylase 73 U/L (25-115); Lipase 245 U/L (73-393)
== END 2018-11-18 13:25 | disposition home or self-care (01) ==
LOC: ER 01:35
DX: K29.70 Gastritis, unspecified, without bleeding (principal); I10 Essential (primary) hypertension; F17.210 Nicotine dependence, cigarettes, uncomplicated; Z98.51 Tubal ligation status; Z79.899 Other long term (current) drug therapy
CPT/HCPCS: 36415; 74177; 80053; 82150; 83690; 84484; 85025; 85610; 85730; 94761; 99284; Q9967

== ENCOUNTER → 2019-01-03 | Emergency (ER) | payer MEDICAID | END | disposition left against medical advice (07) | LOC: ER 14:56 | DX: R10.9 Unspecified abdominal pain (principal); Z53.21 Procedure and treatment not carried out due to patient leaving prior to being seen by health care provider ==

== ENCOUNTER 2019-01-09 11:34 | Emergency (ER) | payer MEDICAID ==
[~2019-01-09] VITALS: Ht 160 cm; Wt 74.8 kg
[2019-01-09] MEDS ORDERED: MORPHINE SULF INJ 2 MG/ML SYRINGE 1ML IV ONE (12:15)
[2019-01-09] MEDS ORDERED: ONDANSETRON HCL 4 MG/2 ML VIAL IV ONE (12:15)
[2019-01-09 13:01] LABS: Basophils # (auto) 0 uL; Basophils % (auto) 0.5 % (0.0-2.0); Eosinophils # (auto) 0 uL; Eosinophils % (auto) 0.5 % (0.0-7.0); Hematocrit 46.6 % (36.0-46.0); Hemoglobin 15.4 g/dL (12.2-16.2); Lymphocytes # (auto) 1.8 uL; Lymphocytes % (auto) 23.6 % (10.0-50.0); Mean Corpuscular Hemoglobin 29.5 pg (28.0-32.0); Mean Corpuscular Volume 89.2 fL (80.0-100.0); Monocytes # (auto) 0.5 uL; Monocytes % (auto) 6.3 % (0.0-12.0); Neutrophils # (auto) 5.2 uL; Neutrophils % (auto) 69.1 % (37.0-80.0); Nucleated Red Blood Cells % 0.1 %; Platelet Count (auto) 284 10^3/uL (140-450); Red Blood Cells 5.23 10^6/uL (4.0-5.20); Red Cell Distribution Width 14.1 % (11.8-14.3); White Blood Cell 7.5 10^3/uL (4.4-10.8)
[2019-01-09 13:18] LABS: Alanine Aminotransferase 26 U/L (13-56); Albumin 3.7 g/dL (3.4-5.0); Anion Gap 8 (5-15); Blood Urea Nitrogen 13 mg/dL (7-18); Calcium 8.8 mg/dL (8.5-10.1); Carbon Dioxide 25 mmol/L (21-32); Chloride 107 mmol/L (98-107); GFR African American 124 mL/min; GFR Non-African American 103 mL/min; Glucose 110 mg/dL (74-106); Magnesium 2.3 mg/dL (1.6-2.6); Potassium 4.4 mmol/L (3.5-5.1); Sodium 140 mmol/L (136-145)
[2019-01-09 13:23] LABS: Alkaline Phosphatase 48 U/L (45-117); Aspartate Aminotransferase 16 U/L (15-37); Bilirubin, Total 0.3 mg/dL (0.2-1.0); Total Protein 7.6 g/dL (6.4-8.2)
[2019-01-09 15:00] VITALS: BP 140/88
== END 2019-01-09 14:59 | disposition home or self-care (01) ==
LOC: EDBD 11:34 → ER 11:34
DX: R07.89 Other chest pain (principal); F17.210 Nicotine dependence, cigarettes, uncomplicated; F15.10 Other stimulant abuse, uncomplicated; I10 Essential (primary) hypertension; Z87.11 Personal history of peptic ulcer disease; Z86.73 Personal history of transient ischemic attack (TIA), and cerebral infarction without residual deficits; Z98.51 Tubal ligation status
CPT/HCPCS: 36415; 71045; 80053; 83735; 83880; 84484; 85025; 93005; 94761; 96374; 96375; 99284; J2270; J2405

== ENCOUNTER 2019-06-02 14:41 | Emergency (ER) | payer MEDICAID ==
[~2019-06-02] VITALS: Ht 162.6 cm; Wt 68.0 kg
[~2019-06-02 14:41] MED LIST changes: -SERT-135 PO; +SERT100T PO
[2019-06-02 14:50] VITALS: BP 177/121
[2019-06-02] MEDS ORDERED: diphenhdrAMINE HCL 50 MG/1 ML VL IM ONE (16:15)
[2019-06-02] MEDS ORDERED: KETOROLAC TROMETH 60MG/2ML VIAL IM ONE (16:15)
== END 2019-06-02 17:14 | disposition home or self-care (01) ==
LOC: ER 14:47
DX: G89.29 Other chronic pain (principal); M54.5 Low back pain; F41.9 Anxiety disorder, unspecified; F32.9 Major depressive disorder, single episode, unspecified; I10 Essential (primary) hypertension; F17.210 Nicotine dependence, cigarettes, uncomplicated; F15.10 Other stimulant abuse, uncomplicated; Z98.51 Tubal ligation status; Z86.73 Personal history of transient ischemic attack (TIA), and cerebral infarction without residual deficits; Z87.11 Personal history of peptic ulcer disease
CPT/HCPCS: 96372; 99283; J1200; J1885

== ENCOUNTER 2019-06-03 11:03 | Emergency (ER) | payer MEDICAID ==
[~2019-06-03] VITALS: Ht 160 cm; Wt 67.1 kg
[2019-06-03 11:39] LABS: Basophils # (auto) 0.1 uL; Basophils % (auto) 0.8 % (0.0-2.0); Eosinophils # (auto) 0.1 uL; Eosinophils % (auto) 1.6 % (0.0-7.0); Hematocrit 51.5 % (36.0-46.0); Hemoglobin 17.1 g/dL (12.2-16.2); Lymphocytes # (auto) 1.5 uL; Lymphocytes % (auto) 21.8 % (10.0-50.0); Mean Corpuscular Hemoglobin 29.8 pg (28.0-32.0); Mean Corpuscular Hgb Conc. 33.1 g/dL (32.0-36.0); Mean Corpuscular Volume 89.8 fL (80.0-100.0); Monocytes # (auto) 0.4 uL; Monocytes % (auto) 6.2 % (0.0-12.0); Neutrophils # (auto) 4.8 uL; Neutrophils % (auto) 69.6 % (37.0-80.0); Nucleated Red Blood Cells % 0.2 %; Platelet Count (auto) 305 10^3/uL (140-450); Red Blood Cells 5.74 10^6/uL (4.0-5.20); Red Cell Distribution Width 13.8 % (11.8-14.3)
[2019-06-03] MEDS ORDERED: SODIUM CHLORIDE 0.9% 1,000 ML IV ONE ×2 (11:41)
[2019-06-03] MEDS ORDERED: ONDANSETRON HCL 4 MG/2 ML VIAL IV ONE (12:00)
[2019-06-03] MEDS ORDERED: KETOROLAC TROMETH 30 MG/ML 1ML VIAL IV ONE ×2 (12:00→14:45)
[2019-06-03 12:02] LABS: Albumin 3.6 g/dL (3.4-5.0); Calcium 9.5 mg/dL (8.5-10.1); Potassium 4.2 mmol/L (3.5-5.1)
[2019-06-03 12:07] LABS: Bilirubin, Total 0.6 mg/dL (0.2-1.0)
[2019-06-03 12:23] LABS: Urine WBC None Seen /hpf (0 - 5)
[2019-06-03] MEDS ORDERED: IOHEXOL 300 MG/ML 100ML BOTTLE IJ ONE (12:32)
[2019-06-03 12:37] LABS: Urine Bacteria NONE SEEN /hpf (None Seen); Urine Blood Negative /uL (Negative); Urine Mucus FEW (None Seen); Urine Specific Gravity 1.025 (1.001-1.035)
[2019-06-03 12:38] LABS: Lactic Acid w/Reflex 2.1 mmol/L (0.4-2.0)
[2019-06-03 12:38] LABS: INR 0.99 (0.9-1.15); Partial Thromboplastin Time 23.5 sec (23.64-32.05)
[2019-06-03 13:30] VITALS: BP 125/80
== END 2019-06-03 15:27 | disposition home or self-care (01) ==
LOC: ER 11:03
DX: K57.90 Diverticulosis of intestine, part unspecified, without perforation or abscess without bleeding (principal); F17.210 Nicotine dependence, cigarettes, uncomplicated; I10 Essential (primary) hypertension; R19.7 Diarrhea, unspecified; Z87.11 Personal history of peptic ulcer disease; Z86.73 Personal history of transient ischemic attack (TIA), and cerebral infarction without residual deficits; Z98.51 Tubal ligation status
CPT/HCPCS: 36415; 74177; 80053; 81001; 83605; 85025; 85610; 85730; 87040; 93005; 96361; 96374; 96375; 96376; 99284; J1885; J2405; J7030; Q9967

== ENCOUNTER 2019-06-06 21:38 | Emergency (ER) | payer MEDICAID ==
[~2019-06-06] VITALS: Ht 162.6 cm; Wt 68.0 kg
[2019-06-06 22:42] LABS: Basophils # (auto) 0.1 uL; Basophils % (auto) 0.7 % (0.0-2.0); Eosinophils # (auto) 0.1 uL; Eosinophils % (auto) 0.7 % (0.0-7.0); Hematocrit 48.6 % (36.0-46.0); Hemoglobin 15.8 g/dL (12.2-16.2); Lymphocytes # (auto) 2.1 uL; Lymphocytes % (auto) 25.3 % (10.0-50.0); Mean Corpuscular Hemoglobin 29.1 pg (28.0-32.0); Mean Corpuscular Hgb Conc. 32.5 g/dL (32.0-36.0); Mean Corpuscular Volume 89.6 fL (80.0-100.0); Monocytes # (auto) 0.8 uL; Monocytes % (auto) 9.2 % (0.0-12.0); Neutrophils # (auto) 5.3 uL; Neutrophils % (auto) 64.1 % (37.0-80.0); Nucleated Red Blood Cells % 0.1 %; Platelet Count (auto) 284 10^3/uL (140-450); Red Blood Cells 5.43 10^6/uL (4.0-5.20); Red Cell Distribution Width 13.8 % (11.8-14.3); White Blood Cell 8.3 10^3/uL (4.4-10.8)
[2019-06-06 23:01] LABS: Salicylate < 1.7 mg/dL (2.8-20.0)
[2019-06-06 23:02] LABS: Alanine Aminotransferase 25 U/L (13-56); Albumin 3.8 g/dL (3.4-5.0); Anion Gap 7 (5-15); Aspartate Aminotransferase 15 U/L (15-37); BUN/Creatinine Ratio 30.1; Blood Alcohol < 3.0 mg/dL (0-5); Blood Urea Nitrogen 31 mg/dL (7-18); Calcium 9.6 mg/dL (8.5-10.1); Carbon Dioxide 29 mmol/L (21-32); Chloride 105 mmol/L (98-107); GFR African American 73 mL/min; GFR Non-African American 60 mL/min; Glucose 93 mg/dL (74-106); Potassium 3.6 mmol/L (3.5-5.1); Sodium 141 mmol/L (136-145)
[2019-06-06 23:03] LABS: Acetaminophen < 2.0 ug/mL (10-30)
[2019-06-06 23:04] LABS: Alkaline Phosphatase 35 U/L (45-117); Total Protein 8.2 g/dL (6.4-8.2)
[2019-06-07 01:40] LABS: Urine WBC None Seen /hpf (0 - 5)
[2019-06-07 01:47] LABS: Urine Pregnacy Test Negative (Negative)
[2019-06-07 01:55] LABS: Urine Bacteria NONE SEEN /hpf (None Seen); Urine Blood Negative /uL (Negative); Urine Specific Gravity 1.025 (1.001-1.035)
[2019-06-07 02:05] LABS: Alcohol, Urine < 3.0 mg/dL (0-5); Amphetamine Screen, Urine POSITIVE (NEGATIVE); Barbiturate Scree,Urine NEGATIVE (NEGATIVE); Benzodiazephine Screen, Urine POSITIVE (NEGATIVE); Cannabinoid Screen, Urine NEGATIVE (NEGATIVE); Cocaine Screen, Urine NEGATIVE (NEGATIVE); Opiate Scree,Urine NEGATIVE (NEGATIVE); Phencyclidine Screen, Urine NEGATIVE (NEGATIVE)
[2019-06-07] MEDS ORDERED: LORazepam 2MG/ML-1ML VIAL IV PRN (07:45)
[2019-06-07] MEDS ORDERED: cloNIDine HCL 0.1 MG TAB PO ONE (08:00)
[2019-06-07] MEDS: LORazepam 2MG/ML-1ML VIAL IM PRN ×2 (08:10→18:46)
[2019-06-07] MEDS ORDERED: OLANZapine 5 MG TAB PO ONE (21:30)
[2019-06-07] MEDS ORDERED: OLANZapine 5 MG TAB PO SCH (22:00)
[2019-06-07] MEDS ORDERED: HALOPERIDOL LACTATE 5 MG/ML INJ VIAL IM ONE (22:15)
[2019-06-07] MEDS ORDERED: diphenhdrAMINE HCL 50 MG/1 ML VL IM ONE (22:15)
[2019-06-07] MEDS ORDERED: LORazepam 2MG/ML-1ML VIAL IM ONE (22:15)
[2019-06-08 17:05] VITALS: BP 121/74
== END 2019-06-08 17:38 | disposition short-term general hospital (02) ==
LOC: EDBD 21:38 → ER 21:40
DX: T50.902A Poisoning by unspecified drugs, medicaments and biological substances, intentional self-harm, initial encounter (principal); F32.9 Major depressive disorder, single episode, unspecified; E86.0 Dehydration; R45.851 Suicidal ideations; I10 Essential (primary) hypertension; Y92.89 Other specified places as the place of occurrence of the external cause
CPT/HCPCS: 36415; 80053; 80307; 80320; 80329; 81001; 81025; 85025; 96372; 99285; J1200; J1630; J2060

== ENCOUNTER 2023-05-01 10:32 | Inpatient (IN) | payer MEDICAID ==
[~2023-05-01] VITALS: Ht 157.5 cm; Wt 84.4 kg
[2023-05-01] MEDS ORDERED: PANTOPRAZOLE 40 MG/10 ML VIAL INJ IV ONE (10:45)
[2023-05-01] MEDS ORDERED: SODIUM CHLORIDE 0.9% 500 ML IVB ONE (10:45)
[2023-05-01] MEDS ORDERED: MORPHINE SULFATE 4 MG/ML SYR/VIAL IV ONE (10:45)
[2023-05-01] MEDS ORDERED: ONDANSETRON HCL 4 MG/2 ML VIAL IV ONE (10:45)
[2023-05-01 11:19] LABS: Urine Bacteria NONE SEEN /hpf (None Seen); Urine Blood Negative /uL (Negative); Urine Clarity Clear (Clear); Urine Color Yellow (Yellow); Urine Hyaline Cast FEW /lpf (0 - 2); Urine Mucus FEW (None Seen); Urine Protein, UAD TRACE (Negative); Urine Specific Gravity 1.026 (1.001-1.035); Urine Urobilinogen Normal (Negative); Urine WBC 1 /hpf (0 - 5); Urine pH 5.5 (5.0-8.0)
[2023-05-01 11:22] LABS: Basophils # (auto) 0 10 ^3/uL (0-0.2); Basophils % (auto) 0.4 % (0.0-2.0); Eosinophils # (auto) 0 10 ^3/uL (0-0.8); Eosinophils % (auto) 0.6 % (0.0-7.0); Hematocrit 48.5 % (36.0-46.0); Lymphocytes # (auto) 2.3 10 ^3/uL (0.4-5.4); Lymphocytes % (auto) 32.1 % (10.0-50.0); Mean Corpuscular Volume 87.9 fL (80.0-100.0); Monocytes # (auto) 0.9 10 ^3/uL (0-1.3); Monocytes % (auto) 11.9 % (0.0-12.0); Nucleated Red Blood Cells % 0.2 %; Red Blood Cells 5.52 10^6/uL (4.0-5.20); Red Cell Distribution Width 13.7 % (11.8-14.3); White Blood Cell 7.3 10^3/uL (4.4-10.8)
[2023-05-01 11:43] LABS: Partial Thromboplastin Time 30.4 SEC (24.5-34.5); Prothrombin Time 10.5 sec (9.3-11.8)
[2023-05-01 11:47] LABS: Alanine Aminotransferase 36 U/L (7-40); Alkaline Phosphatase 50 U/L (46-116); Anion Gap 7 (5-15); Blood Urea Nitrogen 13 mg/dL (9-23); Calcium 9.8 mg/dL (8.5-10.1); Carbon Dioxide 31 mmol/L (20-30); Chloride 99 mmol/L (98-107); Glucose 100 mg/dL (74-106); Potassium 3.6 mmol/L (3.5-5.1); Sodium 137 mmol/L (136-145)
[2023-05-01 11:48] LABS: Albumin 4.7 g/dL (3.2-4.8); Aspartate Aminotransferase 18 U/L (13-40); Bilirubin, Total 0.6 mg/dL (0.2-1.0); Total Protein 7.7 g/dL (5.7-8.2)
[2023-05-01 12:01] LABS: Lipase 59 U/L (12-53); Magnesium 1.6 mg/dL (1.6-2.6)
[2023-05-01] MEDS ORDERED: ONDANSETRON HCL 4 MG/2 ML VIAL IV PRN (15:00)
[2023-05-01] MEDS ORDERED: ALBUTEROL SULF 2.5 MG/0.5ML(0.5%) NEB SOLN NEB PRN (15:00)
[2023-05-01] MEDS ORDERED: DOCUSATE SOD 100 MG CAP PO PRN (15:00)
[2023-05-01] MEDS ORDERED: DEXTROSE (50%) 50ML SYRG IV PRN (15:00)
[2023-05-01 15:16] VITALS: PULSE 88; RESP 18; O2SAT 95
[2023-05-01] MEDS: SODIUM CHLORIDE 0.9% 1,000 ML IV SCH ×2 (17:16→20:40)
[2023-05-01 17:58] LABS: Triglycerides 90 mg/dL (< 150)
[2023-05-01 17:59] LABS: LDL Cholesterol 51 mg/dL (< 100)
[2023-05-01 18:00] LABS: Cholesterol 107 mg/dL (< 200); HDL Cholesterol 40 mg/dL (40-59)
[2023-05-01] MEDS ORDERED: ALBUTEROL SULF 2.5 MG/0.5ML(0.5%) NEB SOLN NEB SCH (18:00)
[2023-05-01 19:06] VITALS: O2SAT 92
[2023-05-01] MEDS: InsuLIN REG 1unit/0.01ml Soln (100units/ml) SC SCH (20:35)
[2023-05-01] MEDS: ACCU-CHEK COMFORT CURVE STRIP VI SCH (20:36)
[2023-05-01] MEDS: ATORVASTATIN 20 MG TAB PO SCH (20:39)
[2023-05-01] MEDS: SERTRALINE HCL 50 MG TAB PO SCH (20:39)
[2023-05-01 23:10] VITALS: PULSE 80; RESP 20
[2023-05-02] VITALS (11 sets, daily range): BP systolic 93–153; BP diastolic 53–91; PULSE 62–91; RESP 14–20; TEMP 97.5–98.4; O2SAT 90–99
[2023-05-02] MEDS: InsuLIN REG 1unit/0.01ml Soln (100units/ml) SC SCH ×5 (00:49→23:58)
[2023-05-02] MEDS: ACCU-CHEK COMFORT CURVE STRIP VI SCH ×5 (00:49→23:57)
[2023-05-02 07:21] LABS: Basophils # (auto) 0 10 ^3/uL (0-0.2); Basophils % (auto) 0.4 % (0.0-2.0); Eosinophils # (auto) 0 10 ^3/uL (0-0.8); Eosinophils % (auto) 0.8 % (0.0-7.0); Hemoglobin 13.3 g/dL (12.2-16.2); Lymphocytes # (auto) 2.3 10 ^3/uL (0.4-5.4); Lymphocytes % (auto) 40.4 % (10.0-50.0); Mean Corpuscular Hemoglobin 29.1 pg (28.0-32.0); Mean Corpuscular Hgb Conc. 33.2 g/dL (32.0-36.0); Mean Corpuscular Volume 87.6 fL (80.0-100.0); Monocytes # (auto) 0.6 10 ^3/uL (0-1.3); Monocytes % (auto) 10.4 % (0.0-12.0); Neutrophils # (auto) 2.8 10 ^3/uL (1.6-8.6); Nucleated Red Blood Cells % 0.2 %; Red Blood Cells 4.57 10^6/uL (4.0-5.20); Red Cell Distribution Width 13.4 % (11.8-14.3); White Blood Cell 5.8 10^3/uL (4.4-10.8)
[2023-05-02 07:34] LABS: Alanine Aminotransferase 22 U/L (7-40); Albumin 3.9 g/dL (3.2-4.8); Alkaline Phosphatase 37 U/L (46-116); Anion Gap 5 (5-15); Aspartate Aminotransferase 19 U/L (13-40); BUN/Creatinine Ratio 18.5 (10.0-20.0); Bilirubin, Total 0.8 mg/dL (0.2-1.0); Blood Urea Nitrogen 12 mg/dL (9-23); Calcium 8.7 mg/dL (8.7-10.4); Carbon Dioxide 28 mmol/L (20-30); Chloride 104 mmol/L (98-107); Glucose 98 mg/dL (74-106); Lipase 75 U/L (12-53); Potassium 3.9 mmol/L (3.5-5.1); Sodium 137 mmol/L (136-145); Total Protein 6.3 g/dL (5.7-8.2)
[2023-05-02] MEDS: SODIUM CHLORIDE 0.9% 1,000 ML IV SCH ×3 (07:40→22:59)
[2023-05-02] MEDS: PANTOPRAZOLE 40 MG/10 ML VIAL INJ IV SCH (08:48)
[2023-05-02] MEDS: MORPHINE SULFATE INJ 2 MG/ml SYRG IV PRN ×3 (08:49→22:26)
[2023-05-02] MEDS: BENAZEPRIL HCL 10 MG TAB PO SCH (08:50)
[2023-05-02] MEDS: SERTRALINE HCL 50 MG TAB PO SCH ×3 (09:00→22:25)
[2023-05-02] MEDS: IPRATROPIUM BROM 0.5 MG/2.5ML INH SOL NEB PRN ×2 (11:58→19:40)
[2023-05-02] MEDS: ALBUTEROL SULF 2.5 MG/0.5ML(0.5%) NEB SOLN NEB PRN ×2 (11:58→19:41)
[2023-05-02] MEDS ORDERED: SODIUM CHLORIDE 0.9% 500 ML IV ONE (14:15)
[2023-05-02] MEDS: ATORVASTATIN 20 MG TAB PO SCH (22:25)
[2023-05-03] VITALS (12 sets, daily range): BP systolic 105–119; BP diastolic 47–72; PULSE 63–83; RESP 14–20; TEMP 97.6–98.6; O2SAT 92–98
[2023-05-03] MEDS: MORPHINE SULFATE INJ 2 MG/ml SYRG IV PRN ×4 (04:01→21:16)
[2023-05-03] MEDS: InsuLIN REG 1unit/0.01ml Soln (100units/ml) SC SCH ×3 (06:00→18:00)
[2023-05-03] MEDS: ACCU-CHEK COMFORT CURVE STRIP VI SCH ×3 (06:23→18:41)
[2023-05-03] MEDS: SODIUM CHLORIDE 0.9% 1,000 ML IV SCH ×2 (06:32→15:14)
[2023-05-03] MEDS: PANTOPRAZOLE 40 MG/10 ML VIAL INJ IV SCH (08:19)
[2023-05-03] MEDS: BENAZEPRIL HCL 10 MG TAB PO SCH (08:20)
[2023-05-03] MEDS: SERTRALINE HCL 50 MG TAB PO SCH ×2 (10:00→21:13)
[2023-05-03] MEDS: ALBUTEROL SULF 2.5 MG/0.5ML(0.5%) NEB SOLN NEB PRN ×2 (10:59→15:42)
[2023-05-03] MEDS: IPRATROPIUM BROM 0.5 MG/2.5ML INH SOL NEB PRN ×2 (11:00→15:42)
[2023-05-03 16:44] LABS: Amphetamine Screen, Urine Neg (NEGATIVE)
[2023-05-03 16:45] LABS: Barbiturate Scree,Urine Neg (NEGATIVE); Benzodiazephine Screen, Urine Neg (NEGATIVE); Cannabinoid Screen, Urine Neg (NEGATIVE); Cocaine Screen, Urine Neg (NEGATIVE); Opiate Scree,Urine Pos (NEGATIVE); Phencyclidine Screen, Urine Neg (NEGATIVE)
[2023-05-03] MEDS: ENOXAPARIN SOD 40 MG/0.4 ML SYRINGE SC SCH (18:42)
[2023-05-03] MEDS: ATORVASTATIN 20 MG TAB PO SCH (21:13)
[2023-05-04] VITALS (12 sets, daily range): BP systolic 114–146; BP diastolic 67–86; PULSE 72–96; RESP 14–19; TEMP 98–99.2; O2SAT 92–99
[2023-05-04] MEDS: InsuLIN REG 1unit/0.01ml Soln (100units/ml) SC SCH ×4 (00:47→16:33)
[2023-05-04] MEDS: ACCU-CHEK COMFORT CURVE STRIP VI SCH ×4 (00:47→16:17)
[2023-05-04] MEDS: SODIUM CHLORIDE 0.9% 1,000 ML IV SCH ×3 (00:50→16:17)
[2023-05-04] MEDS: ALBUTEROL SULF 2.5 MG/0.5ML(0.5%) NEB SOLN NEB PRN ×2 (01:13→08:21)
[2023-05-04] MEDS: IPRATROPIUM BROM 0.5 MG/2.5ML INH SOL NEB PRN ×2 (01:13→08:21)
[2023-05-04] MEDS: MORPHINE SULFATE INJ 2 MG/ml SYRG IV PRN ×3 (01:22→20:44)
[2023-05-04] MEDS ORDERED: ADENOSINE 71 MG in GIVE UN-DILUTED 0 ML IV STA (07:23)
[2023-05-04] MEDS: BENAZEPRIL HCL 10 MG TAB PO SCH (09:02)
[2023-05-04] MEDS: ENOXAPARIN SOD 40 MG/0.4 ML SYRINGE SC SCH (09:02)
[2023-05-04] MEDS: ASPirin 81 mg TAB PO SCH (09:03)
[2023-05-04] MEDS: SERTRALINE HCL 50 MG TAB PO SCH ×2 (09:03→22:00)
[2023-05-04] MEDS: PANTOPRAZOLE 40 MG/10 ML VIAL INJ IV SCH (09:03)
[2023-05-04] MEDS ORDERED: ALPRAZolam 0.25 MG TAB PO PRN (11:00)
[2023-05-04 12:35] LABS: Basophils # (auto) 0 10 ^3/uL (0-0.2); Basophils % (auto) 0.3 % (0.0-2.0); Eosinophils # (auto) 0 10 ^3/uL (0-0.8); Eosinophils % (auto) 0.3 % (0.0-7.0); Hematocrit 37.2 % (36.0-46.0); Lymphocytes # (auto) 1.3 10 ^3/uL (0.4-5.4); Lymphocytes % (auto) 16.6 % (10.0-50.0); Mean Corpuscular Hemoglobin 28.5 pg (28.0-32.0); Mean Corpuscular Hgb Conc. 32.2 g/dL (32.0-36.0); Mean Corpuscular Volume 88.5 fL (80.0-100.0); Monocytes # (auto) 0.6 10 ^3/uL (0-1.3); Neutrophils # (auto) 5.7 10 ^3/uL (1.6-8.6); Neutrophils % (auto) 74.8 % (37.0-80.0); Nucleated Red Blood Cells % 0.1 %; Red Cell Distribution Width 13.4 % (11.8-14.3); White Blood Cell 7.6 10^3/uL (4.4-10.8)
[2023-05-04 12:52] LABS: Chloride 106 mmol/L (98-107); Potassium 3.8 mmol/L (3.5-5.1); Sodium 138 mmol/L (136-145)
[2023-05-04 12:53] LABS: Anion Gap 6 (5-15); Calcium 8.7 mg/dL (8.7-10.4); Carbon Dioxide 26 mmol/L (20-30)
[2023-05-04 12:58] LABS: BUN/Creatinine Ratio 8.8 (10.0-20.0); Blood Urea Nitrogen 5 mg/dL (9-23); Glucose 100 mg/dL (74-106)
[2023-05-04] MEDS ORDERED: IBUPROFEN 800 MG TAB PO ONE (20:30)
[2023-05-04] MEDS: ATORVASTATIN 20 MG TAB PO SCH (22:19)
[2023-05-05] VITALS (9 sets, daily range): BP systolic 115–136; BP diastolic 42–84; PULSE 63–96; RESP 17–20; TEMP 97.8–98.6; O2SAT 94–98
[2023-05-05] MEDS: SODIUM CHLORIDE 0.9% 1,000 ML IV SCH ×2 (02:20→09:10)
[2023-05-05] MEDS: InsuLIN REG 1unit/0.01ml Soln (100units/ml) SC SCH ×3 (06:00→12:00)
[2023-05-05] MEDS: ACCU-CHEK COMFORT CURVE STRIP VI SCH ×3 (06:14→12:00)
[2023-05-05 07:24] LABS: Alanine Aminotransferase 18 U/L (7-40); Albumin 3.6 g/dL (3.2-4.8); Alkaline Phosphatase 29 U/L (46-116); Anion Gap 7 (5-15); Aspartate Aminotransferase 14 U/L (13-40); BUN/Creatinine Ratio 11.5 (10.0-20.0); Blood Urea Nitrogen 6 mg/dL (9-23); Calcium 8.5 mg/dL (8.5-10.1); Carbon Dioxide 26 mmol/L (20-30); Chloride 106 mmol/L (98-107); Potassium 3.9 mmol/L (3.5-5.1); Sodium 139 mmol/L (136-145)
[2023-05-05 07:25] LABS: Bilirubin, Total 1.4 mg/dL (0.2-1.0); Total Protein 5.7 g/dL (5.7-8.2)
[2023-05-05 07:26] LABS: Basophils # (auto) 0 10 ^3/uL (0-0.2); Basophils % (auto) 0.4 % (0.0-2.0); Eosinophils # (auto) 0 10 ^3/uL (0-0.8); Eosinophils % (auto) 0.6 % (0.0-7.0); Hematocrit 35.3 % (36.0-46.0); Hemoglobin 11.6 g/dL (12.2-16.2); Lymphocytes # (auto) 1.6 10 ^3/uL (0.4-5.4); Mean Corpuscular Hemoglobin 28.8 pg (28.0-32.0); Mean Corpuscular Hgb Conc. 32.9 g/dL (32.0-36.0); Mean Corpuscular Volume 87.6 fL (80.0-100.0); Monocytes # (auto) 0.6 10 ^3/uL (0-1.3); Monocytes % (auto) 8.6 % (0.0-12.0); Neutrophils # (auto) 4.8 10 ^3/uL (1.6-8.6); Neutrophils % (auto) 67.4 % (37.0-80.0); Red Blood Cells 4.04 10^6/uL (4.0-5.20); Red Cell Distribution Width 13.3 % (11.8-14.3); White Blood Cell 7.2 10^3/uL (4.4-10.8)
[2023-05-05 08:49] LABS: Glucose 87 mg/dL (74-106)
[2023-05-05] MEDS: ASPirin 81 mg TAB PO SCH (09:09)
[2023-05-05] MEDS: ENOXAPARIN SOD 40 MG/0.4 ML SYRINGE SC SCH (09:10)
[2023-05-05] MEDS: PANTOPRAZOLE 40 MG/10 ML VIAL INJ IV SCH (09:10)
[2023-05-05] MEDS: BENAZEPRIL HCL 10 MG TAB PO SCH (09:10)
[2023-05-05] MEDS: SERTRALINE HCL 50 MG TAB PO SCH (09:10)
[2023-05-05 10:03] LABS: Lipase 40 U/L (12-53); Magnesium 1.7 mg/dL (1.6-2.6)
== END 2023-05-05 16:00 | disposition home or self-care (01) | DRG 282 ==
LOC: ER 10:32 → OVERFLOW 14:52 → WEST WING 22:30 → TELE-WESTW 05-03 15:50
PROVIDERS: ADMIT Nurse Practitioner Family; ATTEND Internal Medicine Geriatric Medicine
DX: K85.90 Acute pancreatitis without necrosis or infection, unspecified (principal); E11.9 Type 2 diabetes mellitus without complications; K57.90 Diverticulosis of intestine, part unspecified, without perforation or abscess without bleeding; K27.9 Peptic ulcer, site unspecified, unspecified as acute or chronic, without hemorrhage or perforation; E66.9 Obesity, unspecified; E78.5 Hyperlipidemia, unspecified; I10 Essential (primary) hypertension; J98.11 Atelectasis; F15.10 Other stimulant abuse, uncomplicated; E78.2 Mixed hyperlipidemia; J44.9 Chronic obstructive pulmonary disease, unspecified; F17.210 Nicotine dependence, cigarettes, uncomplicated; F32.A Depression, unspecified; F41.9 Anxiety disorder, unspecified; Z80.9 Family history of malignant neoplasm, unspecified; Z82.3 Family history of stroke; Z82.49 Family history of ischemic heart disease and other diseases of the circulatory system; Z83.3 Family history of diabetes mellitus; Z86.73 Personal history of transient ischemic attack (TIA), and cerebral infarction without residual deficits; Z87.11 Personal history of peptic ulcer disease; Z68.34 Body mass index [BMI] 34.0-34.9, adult
CPT/HCPCS: 36415; 71045; 74176; 78452; 80048; 80053; 80061; 80307; 81001; 82962; 83036; 83690; 83735; 83880; 84443; 84484; 84702; 85025; 85379; 85610; 85730; 93017; 93306; 94640; C9113; G0378; J0153; J2405

== ENCOUNTER 2024-12-07 18:55 | Emergency (ER) | payer MEDICAID ==
[~2024-12-07] VITALS: Ht 165.1 cm; Wt 77.1 kg
--- NOTE | 2024-12-07 19:19 | ED.PDOC ---
History of Present Illness HPI Comments 54-year-old female with a history of diverticulitis in the past now complains of left lower quadrant abdominal pain radiating to her left upper abdomen for the last 2 days. The pain is dull and constant and worse with movement or local pressure. EMS gave the patient some fentanyl and the pain is relieved Chief Complaint: Abdominal Pain Time Seen by MD: 18:57 Primary Care Provider: unknown Allergies: Coded Allergies: NO KNOWN ALLERGIES (Unverified , 11/15/18) Home Meds Active Scripts Metronidazole (Flagyl) 500 Mg Tab, 1 TAB PO BID for 10 Days, #20 TAB Prov:GO CLEMONS MD 12/07/24 Ciprofloxacin Hcl (Cipro) 250 Mg Tab, 250 MG PO BID for 10 Days, #20 TAB Prov:GO CLEMONS MD 12/07/24 Reported Medications Sertraline Hcl (Zoloft) 100 Mg Tab, 100 MG PO BID 03/05/15 Alprazolam (Xanax) 0.25 Mg Tb, 1 TAB PO HS 08/29/10 Benazepril Hcl (Lotensin) 5 Mg Tab, 1 TAB PO DAILY 08/29/10 Information Source: Patient, Emergency Med Personnel Mode of Arrival: EMS Severity: Moderate, Severe Timing: Days Duration: Since onset Past Medical History PAST MEDICAL HISTORY: Anxiety, COPD, Depression, High Lipids, HTN, PUD, TIA Surgical History: BTL, 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 Pertinent MANAGER HOUSE History Family History Family History: Family hx of DM, Family hx of Cancer, Family hx of heart prince, Family hx of HTN, Family hx of stroke Social History Smoker: Cigarettes, Less Than 1 Pack/Day Alcohol: Denies ETOH Use Drugs: Denies Drug Use Lives In: Home Gastrointestinal: reports: abdominal pain, nausea All Other Systems: Reviewed and Negative Physical Exam General Appearance: Moderate Distress, Obese HEENT: Normal ENT Inspection, Pharynx Normal, TMs Normal Neck: Full Range of Motion, Non-Tender, Normal, Normal Inspection Respiratory: Chest Non-Tender, Lungs Clear, No Accessory Muscle Use, No Resp iratory Distress, Normal Breath Sounds Cardiovascular: No Edema, No JVD, No Murmur, No Gallop, Normal Peripheral Pulses, Regular Rate/Rhythm Breast Exam: Deferred Gastrointestinal: Normal Bowel Sounds, Soft, Tenderness Genitalia: Deferred Pelvic: Deferred Rectal: Deferred Extremities: No calf tenderness, Normal capillary refill, Normal inspection, Normal range of motion, Non-tender, No pedal edema Musculoskeletal : Apperance: Normal Neurologic: Alert, gas mask inspector II-XII nml as Tested, No Motor Deficits, Normal Affect, Normal Mood, No Sensory Deficits Cerebellar Function: Normal Reflexes: Normal Skin: Dry, Normal Color, Warm Lymphatic: No Adenopathy Was a procedure done? Was a procedure done?: No Differential Dx Considerations may include: Differential diagnosis includes but is not limited to: appendicitis, diverticulitis, colitis, urinary tract infection, ureteral colic / stone, bowel obstruction, and others X-Ray, Labs, Meds, VS Vital Signs Date Time Temp Pulse Resp B/P (MAP) Pulse Ox O2 Delivery O2 Flow Rate FiO2 12/07/24 23:00 98.1 95 20 133/83 (100) 94 98.1 12/07/24 20:33 98.1 95 20 141/86 (104) 97 98.1 12/07/24 20:28 92 20 95 Nasal Cannula* 2 28 12/07/24 19:07 98.1 92 22 136/82 (100) 95 98.1 Lab Test 12/07/24 19:45 Range/Units White Blood Count 11.0 H 4.4-10.8 10^3/uL Red Blood Count 5.37 H 4.0-5.20 10^6/uL Hemoglobin 15.7 12.2-16.2 g/dL Hematocrit 47.0 H 36.0-46.0 % Mean Corpuscular Volume 87.4 80.0-100.0 fL Mean Corpuscular Hemoglobin 29.2 28.0-32.0 pg Mean Corpuscular Hemoglobin Concent 33.4 32.0-36.0 g/dL Red Cell Distribution Width 14.1 11.8-14.3 % Platelet Count 246 140-450 10^3/uL Mean Platelet Volume 7.9 6.9-10.8 fL Neutrophils (%) (Auto) 71.4 37.0-80.0 % Lymphocytes (%) (Auto) 19.6 10.0-50.0 % Monocytes (%) (Auto) 8.1 0.0-12.0 % Eosinophils (%) (Auto) 0.6 0.0-7.0 % Basophils (%) (Auto) 0.3 0.0-2.0 % Neutrophils # (Auto) 7.9 1.6-8.6 10 ^3/uL Lymphocytes # (Auto) 2.2 0.4-5.4 10 ^3/uL Monocytes # (Auto) 0.9 0-1.3 10 ^3/uL Eosinophils # (Auto) 0.1 0-0.8 10 ^3/uL Basophils # (Auto) 0 0-0.2 10 ^3/uL Nucleated Red Blood Cells 0.0 % Sodium Level 138 136-145 mmol/L Potassium Level 4.0 3.5-5.1 mmol/L Chloride Level 102 98-107 mmol/L Carbon Dioxide Level 30 20-31 mmol/L Anion Gap 6 5-15 Blood Urea Nitrogen 14 9-23 mg/dL Creatinine 0.79 0.550-1.02 mg/dL Glomerular Filtration Rate Calc 88 >90 mL/min BUN/Creatinine Ratio 17.7 10.0-20.0 Serum Glucose 119 H 74-106 mg/dL Calcium Level 9.7 8.7-10.4 mg/dL Total Bilirubin 1.1 H 0.2-1.0 mg/dL Aspartate Amino Transferase (AST) 22 13-40 U/L Alanine Aminotransferase (ALT) 28 7-40 U/L Alkaline Phosphatase 43 L 46-116 U/L Total Protein 6.9 5.7-8.2 g/dL Albumin 4.5 3.2-4.8 g/dL Lipase 92 H 12-53 U/L Current Medications Medications (Trade) Dose Ordered Sig/Renae Route Start Time Stop Time Status Last Admin Sodium Chloride 1,000 ml @ 1,000 mls/hr Q1H ONCE IVB 12/07/24 19:15 12/07/24 20:14 DC 12/07/24 20:15 PATIENT: FADI ARRIETA ACCT: [id number] UNIT: [id number] : 1970 LOC: ER ROOM / BED: / AGE / SEX: 54 / F ADM STATUS: REG ER SERVICE 08 ORDERING PHYSICIAN: GO CLEMONS MD PROCEDURE(s): ABPLIV - CT AB PEL WITH IV CON ONLY REASON: LLQ pain ORDER NUMBER(s): [id number], ACCESSION NUMBER(s): [id number] Exam: CT CT AB PEL WITH IV CON ONLY History: LLQ pain COMPARISON: CT AB PEL WITH IV CON ONLY on DOS: 06/03/19 Technique: Multidetector spiral CT of the abdomen and pelvis was performed from lung bases to pubic symphysis. Intravenous contrast was administered during this examination. Portal venous imaging was obtained. Axial, coronal and sagittal multiplanar reformats were performed by the technologist on a separate workstation. Radiation Dose : 1. Abdomen/Pelvis: CTDIvol 11.9 mGy, DLP 746 mGy*cm. CONTRAST: Type of contrast: Omni 300 Contrast injected: 100 ml Findings: Lung Bases: Right lower lobe atelectasis/scarring. No acute or significant lung base finding. Normal heart size. No pleural or pericardial effusion. Liver: The liver is normal in size. No focal lesions. Normal hepatic vascular enhancement. Gallbladder and Biliary Tree: Unremarkable Spleen: Unremarkable Pancreas: The pancreas is normal in appearance without focal lesions or abnormal enhancement. Adrenal Glands: Unremarkable Kidneys: No hydronephrosis. Bladder: Unremarkable Bowel: The stomach is grossly normal in appearance. Acute diverticulitis involving the distal descending colon with surrounding fat stranding / phlegmon. No discrete abscess identified. The appendix is not visualized; however, no secondary findings of acute appendicitis identified. Ascites: Absent Lymphadenopathy: No mesenteric, retroperitoneal or periportal lymphadenopathy. Abdominal Wall and Mesentery: Unremarkable. Vasculature: The visualized abdominal aorta is normal in size and caliber. Abdominal and pelvic vessels demonstrate normal enhancement. Pelvic Organs: Unremarkable Musculoskeletal: No aggressive focal bony lesions, acute fractures or dislocation. IMPRESSION: Acute diverticulitis involving the distal descending colon with surrounding fat stranding / phlegmon. No discrete abscess identified. Radiation optimization: All CT scans at this facility use at least one of these dose optimization techniques: automated exposure control mA and/or kV adjustment per patient size (includes targeted exams where dose is matched to clinical indication) or iterative reconstruction. Time of 1ST Reevaluation: 19:19 Reevaluation 1ST: Unchanged Patient Education/Counseling: Diagnosis, Treatment Family Education/Counseling: No Family Present Departure 1 Departure Time of Disposition: 21:00 Impression: Primary Impression: Acute diverticulitis of intestine Disposition: HOME / SELF CARE / HOMELESS Condition: Stable e-Prescriptions Metronidazole (Flagyl) 500 Mg Tab 1 TAB PO BID for 10 Days, #20 TAB Prov: GO CLEMONS MD 12/07/24 Ciprofloxacin Hcl (Cipro) 250 Mg Tab 250 MG PO BID for 10 Days, #20 TAB Prov: GO CLEMONS MD 12/07/24 Discharged With: Self Critical Care Note Critical Care Time?: No Stability Stability form required: No Heart Score Heart Score: Heart Score Response (Comments) Value History N/A 0 EKG N/A 0 Age N/A 0 Risk Factors N/A 0 Troponin N/A 0 Total 0 I personally scribed for GO CLEMONS MD ([email or web address]) on 12/07/24 at 22:28. Electronically submitted by Wilmer Brannon ([email or web address]). GO CLEMONS MD December 07, 2024 19:19
[2024-12-07 20:05] LABS: Basophils # (auto) 0 10 ^3/uL (0-0.2); Basophils % (auto) 0.3 % (0.0-2.0); Eosinophils # (auto) 0.1 10 ^3/uL (0-0.8); Eosinophils % (auto) 0.6 % (0.0-7.0); Hemoglobin 15.7 g/dL (12.2-16.2); Lymphocytes # (auto) 2.2 10 ^3/uL (0.4-5.4); Lymphocytes % (auto) 19.6 % (10.0-50.0); Mean Corpuscular Hemoglobin 29.2 pg (28.0-32.0); Mean Corpuscular Hgb Conc. 33.4 g/dL (32.0-36.0); Mean Corpuscular Volume 87.4 fL (80.0-100.0); Monocytes # (auto) 0.9 10 ^3/uL (0-1.3); Monocytes % (auto) 8.1 % (0.0-12.0); Neutrophils # (auto) 7.9 10 ^3/uL (1.6-8.6); Neutrophils % (auto) 71.4 % (37.0-80.0); Platelet Count (auto) 246 10^3/uL (140-450); Red Blood Cells 5.37 10^6/uL (4.0-5.20); Red Cell Distribution Width 14.1 % (11.8-14.3)
[2024-12-07] MEDS: SODIUM CHLORIDE 0.9% 1,000 ML IVB ONE (20:15)
[2024-12-07 20:18] LABS: Alanine Aminotransferase 28 U/L (7-40); Albumin 4.5 g/dL (3.2-4.8); Anion Gap 6 (5-15); Aspartate Aminotransferase 22 U/L (13-40); BUN/Creatinine Ratio 17.7 (10.0-20.0); Bilirubin, Total 1.1 mg/dL (0.2-1.0); Blood Urea Nitrogen 14 mg/dL (9-23); Calcium 9.7 mg/dL (8.7-10.4); Carbon Dioxide 30 mmol/L (20-31); Chloride 102 mmol/L (98-107); Sodium 138 mmol/L (136-145); Total Protein 6.9 g/dL (5.7-8.2)
[2024-12-07 20:20] LABS: Alkaline Phosphatase 43 U/L (46-116); Glucose 119 mg/dL (74-106); Lipase 92 U/L (12-53)
[2024-12-07 20:28] VITALS: PULSE 92; RESP 20; O2SAT 95
[2024-12-07] MEDS: IOHEXOL 300 MG/ML 100ML BOTTLE IJ ONE (21:38)
--- NOTE | 2024-12-07 22:09 | DVH ---
Exam: CT CT AB PEL WITH IV CON ONLY History: LLQ pain COMPARISON: CT AB PEL WITH IV CON ONLY on DOS: 06/03/19 Technique: Multidetector spiral CT of the abdomen and pelvis was performed from lung bases to pubic s ymphysis. Intravenous contrast was administered during this examination. Portal venous imaging was obtained. Axial, coronal and sagittal multiplanar reformats were performed by the technologist on a separate workstation. Radiation Dose : 1. Abdomen/Pelvis: CTDIvol 11.9 mGy, DLP 746 mGy*cm. CONTRAST: Type of contrast: Omni 300 Contrast injected: 100 ml Findings: Lung Bases: Right lower lobe atelectasis/scarring. No acute or significant lung base finding. Normal heart size. No pleural or pericardial effusion. Liver: The liver is normal in size. No focal lesions. Normal hepatic vascular enhancement. Gallbladder and Biliary Tree: Unremarkable Spleen: Unremarkable Pancreas: The pancreas is normal in appearance without focal lesions or abnormal enhancement. Adrenal Glands: Unremarkable Kidneys: No hydronephrosis. Bladder: Unremarkable Bowel: The stomach is grossly normal in appearance. Acute diverticulitis involving the distal descend ing colon with surrounding fat stranding / phlegmon. No discrete abscess identified. The appendix is not visualized; however, no secondary findings of acute appendicitis identified. Ascites: Absent Lymphadenopathy: No mesenteric, retroperitoneal or periportal lymphadenopathy. Abdominal Wall and Mesentery: Unremarkable. Vasculature: The visualized abdominal aorta is normal in size and caliber. Abdominal and pelvic vess els demonstrate normal enhancement. Pelvic Organs: Unremarkable Musculoskeletal: No aggressive focal bony lesions, acute fractures or dislocation. IMPRESSION: Acute diverticulitis involving the distal descending colon with surrounding fat stranding / phlegmon. No discrete abscess identified. Radiation optimization: All CT scans at this facility use at least one of these dose optimization lyndsey hniques: automated exposure control mA and/or kV adjustment per patient size (includes targeted exam s where dose is matched to clinical indication) or iterative reconstruction.
[2024-12-07] MEDS ORDERED: CIPR-273 PO (22:34)
[2024-12-07] MEDS ORDERED: METR-344 PO (22:34)
[2024-12-07] MEDS: metroNIDAZOLE 500 MG TAB PO ONE (22:45)
[2024-12-07 23:00] VITALS: BP 133/83; PULSE 95; RESP 20; TEMP 98.1; O2SAT 94
[2024-12-07] MEDS: cefTRIAXone 1GM/50ML D5W 50 ML IV ONE (23:32)
== END 2024-12-07 23:00 | disposition home or self-care (01) ==
LOC: EDBD 18:55 → ER 18:55
DX: K57.32 Diverticulitis of large intestine without perforation or abscess without bleeding (principal); I10 Essential (primary) hypertension; F32.A Depression, unspecified; F41.9 Anxiety disorder, unspecified; F17.210 Nicotine dependence, cigarettes, uncomplicated; J44.9 Chronic obstructive pulmonary disease, unspecified; Z79.899 Other long term (current) drug therapy; Z86.73 Personal history of transient ischemic attack (TIA), and cerebral infarction without residual deficits; Z87.11 Personal history of peptic ulcer disease; Z98.51 Tubal ligation status; Z98.890 Other specified postprocedural states
CPT/HCPCS: 36415; 74177; 80053; 83690; 85025; 96360; 96361; 99285; J7030; Q9967

== ENCOUNTER 2025-05-13 10:25 | Inpatient (IN) | payer MEDICAID ==
[2025-05-13] VITALS (7 sets, daily range): BP systolic 99–115; BP diastolic 69–76; PULSE 70–82; RESP 18; TEMP 97.5–98.6; O2SAT 92–98
[~2025-05-13] VITALS: Ht 160 cm; Wt 79.7 kg
[~2025-05-13 10:25] MED LIST changes: +CIPR-273 PO; +METR-344 PO
--- NOTE | 2025-05-13 10:51 | ED.PDOC ---
GI ASSESSMENT HPI Comments This is a 55-year-old female who presents to the ED via EMS with a chief complaint of abdominal pain as of 3-4 days ago, with the pain worsening as of last night. Patient reports the abdominal pain radiates from the epigastric region to the lower quadrant, with pain predominantly in the lower quadrant. Patient has a past medical history of diverticulitis and states this is a similar pain. Patient reports the pain as achy, with no known associated relieving factors. Patient has a social history of smoking cigarettes. Patient has no further complaints at this time and otherwise denies further associated symptoms of nausea, vomiting, hematemesis, LOC, dizziness, fever, or weakness. Chief Complaint: Abdominal Pain Time Seen by MD: 10:36 Primary Care Provider: unknown Reviewed Notes: Medications, Allergies Allergies: Coded Allergies: NO KNOWN ALLERGIES (Unverified , 11/15/18) Home Meds Active Scripts Metronidazole (Flagyl) 500 Mg Tab, 1 TAB PO BID for 10 Days, #20 TAB Prov:GO CLEMONS MD 12/07/24 Ciprofloxacin Hcl (Cipro) 250 Mg Tab, 250 MG PO BID for 10 Days, #20 TAB Prov:GO CLEMONS MD 12/07/24 Reported Medications Sertraline Hcl (Zoloft) 100 Mg Tab, 100 MG PO BID 03/05/15 Alprazolam (Xanax) 0.25 Mg Tb, 1 TAB PO HS 08/29/10 Benazepril Hcl (Lotensin) 5 Mg Tab, 1 TAB PO DAILY 08/29/10 Information Source: Patient, Emergency Med Personnel Mode of Arrival: EMS Timing: Days Duration: Since onset Prehospital treatment: Pain Meds (8Mg Zofran, 150 fentanyl) Severity: Moderate Pain Location: Epigastric, RLQ, LLQ Associated sign and symptoms: Abdominal Pain Past Medical History PAST MEDICAL HISTORY: Anxiety, COPD, Depression, High Lipids, HTN, PUD, TIA Past Medical History (Other): Cervical cancer, diverticulitis Surgical History: BTL, 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 AUTOMATION DESIGN ENGINEER History Family History Family History: Family hx of DM, Family hx of Cancer, Family hx of heart prince, Family hx of HTN, Family hx of stroke Social History Smoker: Cigarettes, Less Than 1 Pack/Day Alcohol: Denies ETOH Use Drugs: Denies Drug Use Lives In: Home Constitutional: denies: chills, diaphoresis, fatigue, fever, malaise, sweats, weakness, others EENTM: denies: blurred vision, double vision, ear bleeding, ear discharge, ear drainage, ear pain, ear ringing, eye pain, eye redness, hearing loss, mouth pain, mouth swelling, nasal discharge, nose bleeding, nose congestion, nose pain, photophobia, tearing, throat pain, throat swelling, voice changes, others Respiratory: denies: cough, hemoptysis, orthopnea, SOB at rest, shortness of breath, SOB with excertion, stridor, wheezing, others Cardiovascular: denies: chest pain, dizzy spells, diaphoresis, Dyspnea on exertion, edema, irregular heart beat, left arm pain, lightheadedness, palpitations, PND, syncope, others Gastrointestinal: reports: abdominal pain; denies: abdomen distended, blood streaked bowels, constipated, diarrhea, dysphagia, difficulty swallowing, hematemesis, melena, nausea, poor appetite, poor fluid intake, rectal bleeding, rectal pain, vomiting, others Genitourinary: denies: abnormal vagina bleeding, burning, dyspareunia, dysuria, flank pain, frequency, hematuria, incontinence, pain, , vagina discharge, urgency, others Neurological: denies: dizziness, fainting, headache, left sided numbness, left sided weakness, numbness, paresthesia, pre-existing deficit, right sided numbness, right sided weakness, seizure, speech problems, tingling, tremors, weakness, others Musculoskeletal: denies: back pain, gout, joint pain, joint swelling, muscle pain, muscle stiffness, neck pain, others Integumetry: denies: bruises, change in color, change in hair/nails, dryness, laceration, lesions, lumps, rash, wounds, others Allergic/Immunocompromised: denies: Difficulty Healing, Frequent Infections, Hives, Itching, others Hematologic/Lymphatic: denies: anemia, blood clots, easy bleeding, easy bruising, swollen glands, others Endocrine: denies: excessive hunger, excessive sweating, excessive thirst, excessive urination, flushing, intolerance to cold, intolerance to heat, unexplained weight gain, unexplained weight loss, others Psychiatric: denies: anxiety, bipolar disorder, depression, hopeless, panic disorder, schizophrenia, sleepless, suicidal, others All Other Systems: Reviewed and Negative Physical Exam General Appearance: Moderate Distress HEENT: Normal ENT Inspection, Pharynx Normal, TMs Normal Neck: Full Range of Motion, Non-Tender, Normal, Normal Inspection Respiratory: Chest Non-Tender, Lungs Clear, No Accessory Muscle Use, No Respiratory Distress, Normal Breath Sounds Cardiovascular: No Edema, No JVD, No Murmur, No Gallop, Normal Peripheral Pulses, Regular Rate/Rhythm Breast Exam: Deferred Gastrointestinal: Diffuse Genitalia: Deferred Pelvic: Deferred Rectal: Deferred Extremities: No calf tenderness, Normal capillary refill, Normal inspection, Normal range of motion, Non-tender, No pedal edema Musculoskeletal : Apperance: Normal Neurologic: Alert, hatch tender II-XII nml as Tested, No Motor Deficits, Normal Affect, Normal Mood, No Sensory Deficits Cerebellar Function: NOT DONE Reflexes: NOT DONE Skin: Dry, Normal Color, Warm Peripheral Pulses: 3+ Radial (R), 3+ Radial (L) Lymphatic: No Adenopathy Was a procedure done? Was a procedure done?: No GI differential Dx Differential Diagnosis: Constipation, Diverticular disease, Esophagitis, Gastritis/PUD, Gastroenteritis, Dehydration, Food Poisoning, Bacterial, Parasitic, Viral Other Differential Diagnosis Diverticulitis X-Ray, Labs, Meds, VS Vital Signs Date Time Temp Pulse Resp B/P (MAP) Pulse Ox O2 Delivery O2 Flow Rate FiO2 05/13/25 10:33 98.2 82 18 115/76 98 98.2 Lab Test 05/13/25 11:19 Range/Units White Blood Count 10.0 4.4-10.8 10^3/uL Red Blood Count 5.67 H 4.0-5.20 10^6/uL Hemoglobin 16.2 12.2-16.2 g/dL Hematocrit 49.1 H 36.0-46.0 % Mean Corpuscular Volume 86.6 80.0-100.0 fL Mean Corpuscular Hemoglobin 28.5 28.0-32.0 pg Mean Corpuscular Hemoglobin Concent 33.0 32.0-36.0 g/dL Red Cell Distribution Width 13.8 11.8-14.3 % Platelet Count 318 140-450 10^3/uL Mean Platelet Volume 7.7 6.9-10.8 fL Neutrophils (%) (Auto) 72.7 37.0-80.0 % Lymphocytes (%) (Auto) 19.7 10.0-50.0 % Monocytes (%) (Auto) 6.1 0.0-12.0 % Eosinophils (%) (Auto) 1.0 0.0-7.0 % Basophils (%) (Auto) 0.5 0.0-2.0 % Neutrophils # (Auto) 7.2 1.6-8.6 10 ^3/uL Lymphocytes # (Auto) 2.0 0.4-5.4 10 ^3/uL Monocytes # (Auto) 0.6 0-1.3 10 ^3/uL Eosinophils # (Auto) 0.1 0-0.8 10 ^3/uL Basophils # (Auto) 0.1 0-0.2 10 ^3/uL Nucleated Red Blood Cells 0.0 % Sodium Level 137 136-145 mmol/L Potassium Level 4.0 3.5-5.1 mmol/L Chloride Level 103 98-107 mmol/L Carbon Dioxide Level 26 20-31 mmol/L Anion Gap 8 5-15 Blood Urea Nitrogen 20 9-23 mg/dL Creatinine 0.75 0.550-1.02 mg/dL Glomerular Filtration Rate Calc 93 >90 mL/min BUN/Creatinine Ratio 26.7 H 10.0-20.0 Serum Glucose 124 H 74-106 mg/dL Calcium Level 9.5 8.7-10.4 mg/dL Total Bilirubin 0.6 0.2-1.0 mg/dL Aspartate Amino Transferase (AST) 24 13-40 U/L Alanine Aminotransferase (ALT) 26 7-40 U/L Alkaline Phosphatase 38 L 46-116 U/L Total Protein 7.4 5.7-8.2 g/dL Albumin 4.3 3.2-4.8 g/dL Lipase 36 12-53 U/L Current Medications Medications (Trade) Dose Ordered Sig/Renae Route Start Time Stop Time Status Last Admin Ondansetron HCl (Zofran) 4 mg ONCE ONCE IV 05/13/25 10:45 05/13/25 10:46 DC 05/13/25 13:29 Hydromorphone HCl (Dilaudid Injection) 1 mg ONCE ONCE IV 05/13/25 10:45 05/13/25 10:46 DC 05/13/25 13:30 Sodium Chloride 1,000 ml @ 1,000 mls/hr Q1H ONCE IVB 05/13/25 10:45 05/13/25 11:44 DC 05/13/25 13:30 Ceftriaxone Sodium 50 ml @ 100 mls/hr ONCE ONCE IV 05/13/25 12:00 05/13/25 12:29 DC 05/13/25 13:29 Metronidazole 100 ml @ 100 mls/hr ONCE ONCE IV 05/13/25 12:00 05/13/25 12:59 DC 05/13/25 13:29 Sodium Chloride 1,000 ml @ 1,000 mls/hr Q1H ONCE IV 05/13/25 12:00 05/13/25 12:59 DC 05/13/25 13:30 Sodium Chloride 1,000 ml @ 150 mls/hr Q6H40M ONCE IV 05/13/25 12:00 05/13/25 18:39 05/13/25 13:30 [place] [id number] Ph: [phone] DIAGNOSTIC IMAGING Diagnostic Imaging Report : [id number] Signed PATIENT: FADI ARRIETA ACCT: [id number] UNIT: [id number] : 1970 LOC: ER ROOM / BED: / AGE / SEX: 55 / F ADM STATUS: REG ER SERVICE 1041 ORDERING PHYSICIAN: ISABEL SAMUEL MD PROCEDURE(s): ABPL - CT AB PEL WO CON-NO ORAL OR IV REASON: diverticulitis ORDER NUMBER(s): [id number], ACCESSION NUMBER(s): [id number] CLINICAL HISTORY: diverticulitis TECHNIQUE: CT of the abdomen and pelvis was performed without IV contrast. This exam was performed according to our departmental dose optimization program. Up-to-date CT equipment and radiation dose reduction techniques are utilized as appropriate. CTDI 12 DLP 590 COMPARISON: CT CT AB PEL WITH IV CON ONLY on DOS: 12/07/24, CT CT AB PEL WO CON- NO ORAL OR IV on DOS: 05/01/23, CT AB PEL WITH IV CON ONLY on DOS: 06/03/19 FINDINGS: Evaluation is limited, given the right hepatic dome was excluded on this study Abdomen/Pelvis: The spleen, pancreas, gallbladder, adrenal glands, kidneys, uterus, bladder, and imaged liver are unremarkable. The abdominal aorta is normal in course and caliber. There are minimal aortic atherosclerotic calcifications. There is no free intraperitoneal air or fluid. There is no enlarged abdominal pelvic lymph node. There is no small bowel wall thickening or dilatation. The appendix is normal. There is colonic diverticulosis, moderate at the sigmoid segment. There is mild focal descending colon wall thickening with mild inflammation Other: The imaged lower thorax demonstrates mild linear atelectatic changes at both lung bases No acute osseous abnormality is evident. Impression: Acute diverticulitis at the descending colon. ATED BY: DERIAN MARTINEZ MD DICTATED DATE/TIME: 05/13/251133 SIGNED BY: DERIAN MARTINEZ MD SIGNED DATE/TIME: 05/13/251133 CC: Patient alert. Complaining of abdominal pain. History of diverticulitis. Vitals stable. Answering questions. WBC within normal limits. Establish intravenous access. Was given fluids. Was given pain medication. Was given Zofran. Explained to the patient. Continue monitoring. Images Reviewed?: Images reviewed and evaluated by me Time of 1ST Reevaluation: 11:48 Reevaluation 1ST: Unchanged Patient Education/Counseling: Diagnosis, Treatment Family Education/Counseling: No Family Present SEPSIS Sepsis Screen Date sepsis recognized/suspect: May 13, 2025 Time Sepsis recognized/suspect: 1033 Recent Procedure: No On Antibiotic Therapy: No Respiratory Rate >20: No Heart Rate >90: No Temp<36 C (96.8 F) or >38.3 C: No SBP <90 or MAP <65 mmHG: No New Acute Mental Status Change: No Is the patient on CPAP, BIPAP,: No Physician Orders Urinalysis (05/13/25 10:41) Ct Ab Pel Wo Con-No Oral Or Iv (05/13/25 10:41) Sodium Chloride 0.9% (05/13/25 12:00) Admit (05/13/25 12:26) Vital Signs Date Time Temp Pulse Resp B/P (MAP) Pulse Ox O2 Delivery O2 Flow Rate FiO2 05/13/25 10:33 98.2 82 18 115/76 98 98.2 Laboratory Tests Test 05/13/25 11:19 White Blood Count 10.0 10^3/uL (4.4-10.8) Medications Medications Dose Ordered Sig/Renae Route Start Time Stop Time Status Last Admin Dose Admin Ceftriaxone Sodium 50 ml @ 100 mls/hr ONCE ONCE IV 05/13/25 12:00 05/13/25 12:29 DC 05/13/25 13:29 Hydromorphone HCl 1 mg ONCE ONCE IV 05/13/25 10:45 05/13/25 10:46 DC 05/13/25 13:30 Metronidazole 100 ml @ 100 mls/hr ONCE ONCE IV 05/13/25 12:00 05/13/25 12:59 DC 05/13/25 13:29 Ondansetron HCl 4 mg ONCE ONCE IV 05/13/25 10:45 05/13/25 10:46 DC 05/13/25 13:29 Sodium Chloride 1,000 ml @ 150 mls/hr Q6H40M ONCE IV 05/13/25 12:00 05/13/25 18:39 05/13/25 13:30 Sodium Chloride 1,000 ml @ 1,000 mls/hr Q1H ONCE IV 05/13/25 12:00 05/13/25 12:59 DC 05/13/25 13:30 Sodium Chloride 1,000 ml @ 1,000 mls/hr Q1H ONCE IVB 05/13/25 10:45 05/13/25 11:44 DC 05/13/25 13:30 Departure 1 Departure Time of Disposition: 11:55 Impression: Primary Impression: Acute diverticulitis of intestine Disposition: ADMITTED INPATIENT Admit to: Med Surg Condition: Guarded Critical Care Note Critical Care Time?: Yes (90 min-critical care time only) Stability Stability form required: No Heart Score Heart Score: Heart Score Response (Comments) Value History N/A 0 EKG N/A 0 Age N/A 0 Risk Factors N/A 0 Troponin N/A 0 Total 0 I personally scribed for ISABEL SAMUEL MD ([email or web address]) on 05/13/25 at 10:51. Electronically submitted by Nuris Camacho ([email or web address]). I personally scribed for ISABEL SAMUEL MD ([email or web address]) on 05/13/25 at 15:12. Electronically submitted by Dwight Franz ([email or web address]). ISABEL SAMUEL MD May 13, 2025 10:51
--- NOTE | 2025-05-13 11:36 | DVH ---
CLINICAL HISTORY: diverticulitis TECHNIQUE: CT of the abdomen and pelvis was performed without IV contrast. This exam was performed ac cording to our departmental dose optimization program. Up-to-date CT equipment and radiation dose red uction techniques are utilized as appropriate. CTDI 12 DLP 590 COMPARISON: CT CT AB PEL WITH IV CON ONLY on DOS: 12/07/24, CT CT AB PEL WO CON-NO ORAL OR IV on DOS: 05/01/23, CT AB PEL WITH IV CON ONLY on DOS: 06/03/19 FINDINGS: Evaluation is limited, given the right hepatic dome was excluded on this study Abdomen/Pelvis: The spleen, pancreas, gallbladder, adrenal glands, kidneys, uterus, bladder, and imaged liver are unr emarkable. The abdominal aorta is normal in course and caliber. There are minimal aortic atherosclerotic calcifi cations. There is no free intraperitoneal air or fluid. There is no enlarged abdominal pelvic lymph node. There is no small bowel wall thickening or dilatation. The appendix is normal. There is colonic diver ticulosis, moderate at the sigmoid segment. There is mild focal descending colon wall thickening with mild inflammation Other: The imaged lower thorax demonstrates mild linear atelectatic changes at both lung bases No acute osseous abnormality is evident. Impression: Acute diverticulitis at the descending colon.
[2025-05-13 11:40] LABS: Hematocrit 49.1 % (36.0-46.0); Hemoglobin 16.2 g/dL (12.2-16.2); Mean Corpuscular Hemoglobin 28.5 pg (28.0-32.0); Mean Corpuscular Volume 86.6 fL (80.0-100.0); Nucleated Red Blood Cells % 0.0 %
[2025-05-13 11:48] LABS: Alanine Aminotransferase 26 U/L (7-40); Albumin 4.3 g/dL (3.2-4.8); Anion Gap 8 (5-15); BUN/Creatinine Ratio 26.7 (10.0-20.0); Blood Urea Nitrogen 20 mg/dL (9-23); Calcium 9.5 mg/dL (8.7-10.4); Carbon Dioxide 26 mmol/L (20-31); Chloride 103 mmol/L (98-107); Lipase 36 U/L (12-53); Potassium 4.0 mmol/L (3.5-5.1); Sodium 137 mmol/L (136-145); Total Protein 7.4 g/dL (5.7-8.2)
[2025-05-13 11:49] LABS: Bilirubin, Total 0.6 mg/dL (0.2-1.0)
[2025-05-13 11:57] LABS: Alkaline Phosphatase 38 U/L (46-116); Glucose 124 mg/dL (74-106)
--- NOTE | 2025-05-13 12:59 | DVHHP2 ---
History of Present Illness Reason for Visit: Abdominal pain History of Present Illness 55-year-old female presents for evaluation of abdominal pain. Patient reports a one-week history of lower abdominal pain that is intermittent. She states over the past one day symptoms have become progressively worse with associated nausea no emesis. Reports chills. She reports having a diverticulitis flare up approximately a year ago. No other acute complaints reported. Past Medical History Hypertension, dyslipidemia, depression, COPD, diverticulitis Past Surgical History , BTL Family History Diabetes mellitus, cancer, heart disease Smoke: <1 pack per day ALCOHOL: none Drugs: None Review of Systems Review of Systems Review of systems are currently negative otherwise addressed in HPI. Allergies: Coded Allergies: NO KNOWN ALLERGIES (Unverified , 11/15/18) Medications Current Medications Medications Dose Ordered Sig/Renae Route Start Time Stop Time Status Last Admin Dose Admin Ceftriaxone Sodium 50 ml @ 100 mls/hr DAILY@09 IV 05/14/25 09:00 UNV Metronidazole 100 ml @ 100 mls/hr Q8HR IV 05/13/25 14:00 UNV Lisinopril 10 mg DAILY PO 05/14/25 10:00 Aspirin 81 mg DAILY PO 05/14/25 10:00 Albuterol 2.5 mg Q6HPRN PRN NEB 05/13/25 13:00 UNV Ketorolac Tromethamine 15 mg Q6HPRN PRN IV 05/13/25 13:00 05/18/25 12:59 UNV Acetaminophen/ Hydrocodone Bitart 1 tab Q4HP PRN PO 05/13/25 13:00 UNV Ondansetron HCl 4 mg Q4HP PRN IV 05/13/25 13:00 UNV Acetaminophen 650 mg Q6HP PRN PO 05/13/25 13:00 UNV Exam Vital Signs Vital Signs Date Time Temp Pulse Resp B/P (MAP) Pulse Ox O2 Delivery O2 Flow Rate FiO2 05/13/25 10:33 98.2 82 18 115/76 98 98.2 Exam Gen: Skin: Warm, dry, normal color and texture, no rash. HEENT: Normocephalic atraumatic, mucous membranes moist and pink. Neck: Cervical and supraclavicular nodes normal without enlargement, trachea is midline, thyroid gland is normal without masses. Pulmonary: Clear to auscultation and percussion bilaterally. Cardiac: Regular rate and rhythm. No murmur Abdomen: Soft, lower abdominal tenderness, nondistended, bowel sounds present all 4 quadrants, no guarding, no rigidity, no organomegaly. Extremities: No cyanosis, clubbing, no edema Neuro: Cranial nerves II through XII grossly intact, normal affect and speech, no focal motor deficits. Labs/Xrays ORDERING PHYSICIAN: ISABEL SAMUEL MD PROCEDURE(s): ABPL - CT AB PEL WO CON-NO ORAL OR IV REASON: diverticulitis ORDER NUMBER(s): [id number], ACCESSION NUMBER(s): [id number] CLINICAL HISTORY: diverticulitis TECHNIQUE: CT of the abdomen and pelvis was performed without IV contrast. This exam was performed according to our departmental dose optimization program. Up-to-date CT equipment and radiation dose reduction techniques are utilized as appropriate. CTDI 12 DLP 590 COMPARISON: CT CT AB PEL WITH IV CON ONLY on DOS: 12/07/24, CT CT AB PEL WO CON- NO ORAL OR IV on DOS: 05/01/23, CT AB PEL WITH IV CON ONLY on DOS: 06/03/19 FINDINGS: Evaluation is limited, given the right hepatic dome was excluded on this study Abdomen/Pelvis: The spleen, pancreas, gallbladder, adrenal glands, kidneys, uterus, bladder, and imaged liver are unremarkable. The abdominal aorta is normal in course and caliber. There are minimal aortic atherosclerotic calcifications. There is no free intraperitoneal air or fluid. There is no enlarged abdominal pelvic lymph node. There is no small bowel wall thickening or dilatation. The appendix is normal. There is colonic diverticulosis, moderate at the sigmoid segment. There is mild focal descending colon wall thickening with mild inflammation Other: The imaged lower thorax demonstrates mild linear atelectatic changes at both lung bases No acute osseous abnormality is evident. Impression: Acute diverticulitis at the descending colon. Labs Test 05/13/25 11:19 Range/Units White Blood Count 10.0 4.4-10.8 10^3/uL Red Blood Count 5.67 H 4.0-5.20 10^6/uL Hemoglobin 16.2 12.2-16.2 g/dL Hematocrit 49.1 H 36.0-46.0 % Mean Corpuscular Volume 86.6 80.0-100.0 fL Mean Corpuscular Hemoglobin 28.5 28.0-32.0 pg Mean Corpuscular Hemoglobin Concent 33.0 32.0-36.0 g/dL Red Cell Distribution Width 13.8 11.8-14.3 % Platelet Count 318 140-450 10^3/uL Mean Platelet Volume 7.7 6.9-10.8 fL Neutrophils (%) (Auto) 72.7 37.0-80.0 % Lymphocytes (%) (Auto) 19.7 10.0-50.0 % Monocytes (%) (Auto) 6.1 0.0-12.0 % Eosinophils (%) (Auto) 1.0 0.0-7.0 % Basophils (%) (Auto) 0.5 0.0-2.0 % Neutrophils # (Auto) 7.2 1.6-8.6 10 ^3/uL Lymphocytes # (Auto) 2.0 0.4-5.4 10 ^3/uL Monocytes # (Auto) 0.6 0-1.3 10 ^3/uL Eosinophils # (Auto) 0.1 0-0.8 10 ^3/uL Basophils # (Auto) 0.1 0-0.2 10 ^3/uL Nucleated Red Blood Cells 0.0 % Sodium Level 137 136-145 mmol/L Potassium Level 4.0 3.5-5.1 mmol/L Chloride Level 103 98-107 mmol/L Carbon Dioxide Level 26 20-31 mmol/L Anion Gap 8 5-15 Blood Urea Nitrogen 20 9-23 mg/dL Creatinine 0.75 0.550-1.02 mg/dL Glomerular Filtration Rate Calc 93 >90 mL/min BUN/Creatinine Ratio 26.7 H 10.0-20.0 Serum Glucose 124 H 74-106 mg/dL Calcium Level 9.5 8.7-10.4 mg/dL Total Bilirubin 0.6 0.2-1.0 mg/dL Aspartate Amino Transferase (AST) 24 13-40 U/L Alanine Aminotransferase (ALT) 26 7-40 U/L Alkaline Phosphatase 38 L 46-116 U/L Total Protein 7.4 5.7-8.2 g/dL Albumin 4.3 3.2-4.8 g/dL Lipase 36 12-53 U/L SEPSIS Sepsis Screen Date sepsis recognized/suspect: May 13, 2025 Time Sepsis recognized/suspect: 1033 Recent Procedure: No On Antibiotic Therapy: No Respiratory Rate >20: No Heart Rate >90: No Temp<36 C (96.8 F) or >38.3 C: No SBP <90 or MAP <65 mmHG: No New Acute Mental Status Change: No Is the patient on CPAP, BIPAP,: No Physician Orders Urinalysis (05/13/25 10:41) Ct Ab Pel Wo Con-No Oral Or Iv (05/13/25 10:41) Metronidazole 500mg/100ml (Flagyl 500mg/ (05/13/25 12:00) Sodium Chloride 0.9% (05/13/25 12:00) Sodium Chloride 0.9% (05/13/25 12:00) Admit (05/13/25 12:26) Ceftriaxone 1gm/50ml (Rocephin) (05/14/25 09:00) Metronidazole 500mg/100ml (Flagyl 500mg/ (05/13/25 14:00) Lisinopril Tablet (Zestril Tablet) (05/14/25 10:00) Aspirin Tablet (05/14/25 10:00) Albuterol Medneb (Ventolin Medneb) (05/13/25 13:00) Basic Metabolic Panel (05/14/25 04:00) * Gi Dvh Fitter / Welder (05/13/25 12:46) Ketorolac Injection (Toradol Injection) (05/13/25 13:00) Hydrocodone-Acet 5/325mg Tab (Drain 5/32 (05/13/25 13:00) Ondansetron Hcl (Zofran) (05/13/25 13:00) Complete Blood Count (05/14/25 04:00) Condition: Stable (05/13/25 12:46) Acetaminophen Tablet (Tylenol Tablet) (05/13/25 13:00) Clear Liq Diet (05/13/25 Lunch) Bedrest With Bathroom Privileg (05/13/25 12:46) Vital Signs Date Time Temp Pulse Resp B/P (MAP) Pulse Ox O2 Delivery O2 Flow Rate FiO2 05/13/25 10:33 98.2 82 18 115/76 98 98.2 Laboratory Tests Test 05/13/25 11:19 White Blood Count 10.0 10^3/uL (4.4-10.8) Assessment/Plan Assessment/Plan Assessment Acute abdominal pain Acute diverticulitis Hypertension Plan Admit the patient to [facility] to the hospitalist Greg/Eddy GI consult Pain management Resume home medications Continue treatment per orders Plan discussed with: Patient My Orders Orders - RUSS DIALLO Procedure Category Date Status Time Admit ADMIT 05/13/25 Transmitted 12:26 Ceftriaxone 1gm/50ml PHA 05/14/25 Logged (Rocephin) 09:00 Metronidazole PHA 05/13/25 Logged 500mg/100ml (Flagyl 14:00 Lisinopril Tablet PHA 05/14/25 In Process (Zestril Tablet) 10:00 Aspirin Tablet PHA 05/14/25 In Process 10:00 Albuterol Medneb PHA 05/13/25 Logged (Ventolin Medneb) 13:00 Basic Metabolic Panel LAB 05/14/25 Verified 04:00 * Gi Dvh Fitter / Welder CONS 05/13/25 Transmitted 12:46 Ketorolac Injection PHA 05/13/25 Logged (Toradol Injection) 13:00 Hydrocodone-Acet PHA 05/13/25 Logged 5/325mg Tab (Drain 13:00 Ondansetron Hcl PHA 05/13/25 Logged (Zofran) 13:00 Complete Blood Count LAB 05/14/25 Verified 04:00 Condition: Stable TALAT 05/13/25 In Process 12:46 Acetaminophen Tablet PHA 05/13/25 Logged (Tylenol Tablet) 13:00 Clear Liq Diet DIET 05/13/25 Transmitted Lunch Bedrest With Bathroom TALAT 05/13/25 In Process Privileg 12:46 Date of Service: May 13, 2025 Billing Provider: RUSS DIALLO Common Visit Codes: [id number] INP/OBS CARE (HIGH) RUSS DIALLO May 13, 2025 12:59
[2025-05-13] MEDS ORDERED: ALBUTEROL SULF 2.5 MG/0.5ML(0.5%) NEB SOLN NEB PRN (13:00)
[2025-05-13] MEDS ORDERED: HYDROcodone-ACET 5/325MG TAB PO PRN (13:00)
[2025-05-13] MEDS ORDERED: ONDANSETRON HCL 4 MG/2 ML VIAL IV PRN (13:00)
[2025-05-13] MEDS: ONDANSETRON HCL 4 MG/2 ML VIAL IV ONE (13:29)
[2025-05-13] MEDS: HYDROmorphone HCL 2 MG/ML VL/or syr IV ONE (13:30)
[2025-05-13] MEDS: SODIUM CHLORIDE 0.9% 1,000 ML IV ONE ×2 (13:30)
[2025-05-13] MEDS: SODIUM CHLORIDE 0.9% 1,000 ML IVB ONE (13:30)
[2025-05-13] MEDS ORDERED: CHOL20002 PO (19:14)
[2025-05-13] MEDS ORDERED: ASPI-325 PO (19:14)
[2025-05-13] MEDS ORDERED: ALBU108A5 PO (19:14)
[2025-05-13] MEDS ORDERED: LISI-287 PO (19:16)
[2025-05-13] MEDS: ACETAMINOPHEN 325 MG TAB PO PRN (22:23)
[2025-05-14] VITALS (9 sets, daily range): BP systolic 94–123; BP diastolic 62–83; PULSE 74–118; RESP 16–21; TEMP 97–98.7; O2SAT 0–98
[2025-05-14 06:15] LABS: Hematocrit 43.7 % (36.0-46.0); Hemoglobin 14.4 g/dL (12.2-16.2); Mean Corpuscular Hemoglobin 29.0 pg (28.0-32.0); Mean Corpuscular Volume 88.0 fL (80.0-100.0); Nucleated Red Blood Cells % 0.2 %
[2025-05-14 06:33] LABS: Chloride 101 mmol/L (98-107); Potassium 4.0 mmol/L (3.5-5.1); Sodium 138 mmol/L (136-145)
[2025-05-14 06:34] LABS: Anion Gap 7 (5-15); Calcium 9.0 mg/dL (8.7-10.4); Carbon Dioxide 30 mmol/L (20-31)
[2025-05-14 06:39] LABS: BUN/Creatinine Ratio 15.0 (10.0-20.0); Blood Urea Nitrogen 12 mg/dL (9-23); Glucose 100 mg/dL (74-106)
[2025-05-14] MEDS: LISINOPRIL 5 MG TAB PO SCH (10:00)
[2025-05-14] MEDS: ENOXAPARIN SOD 40 MG/0.4 ML SYRINGE SC ONE (11:15)
[2025-05-14] MEDS: SUCRALFATE 1 GM/10 ML ORAL SUSP GT ONE (13:10)
[2025-05-14] MEDS: NICOTINE 14 MG/24HR TOPICAL PATCH TD ONE (13:13)
[2025-05-14] MEDS: SODIUM CHLORIDE 0.9% 1,000 ML IV ONE (13:13)
--- NOTE | 2025-05-14 16:35 | DVHINCON2 ---
Date of service: May 14, 2025 Referring Physician Clint Reason for Consultation Diverticulitis History of Present Illness The patient is a 55-year-old female with a past medical history significant for hypertension, hyperlipidemia, COPD, depression, history of prior diverticulitis, admitted with abdominal pain intermittent for one week. Patient was diagnosed with acute uncomplicated diverticulitis. Patient has been having abdominal pain that is been intermittent without any history of GI bleeding. She denies passing gas or stool since admission. Patient states that he has had a colonoscopy in the past. She denies any dysphagia odynophagia. Patient states that the pain is in the left lower quadrant without radiation. She states it has improved since admission. Patient is tolerating a clear liquid diet. Past Medical History As above Past Surgical History section BTL Family History: Family history: Hypertension G8 MOTHER Social History Smokes tobacco No alcohol or recreational drug abuse Allergies: Coded Allergies: NO KNOWN ALLERGIES (Unverified , 11/15/18) Home Meds Active Scripts Metronidazole (Flagyl) 500 Mg Tab, 1 TAB PO BID for 10 Days, #20 TAB Prov:GO CLEMONS MD 12/07/24 Ciprofloxacin Hcl (Cipro) 250 Mg Tab, 250 MG PO BID for 10 Days, #20 TAB Prov:GO CLEMONS MD 12/07/24 Reported Medications Lisinopril & Hydrochlorothiazi (Lisinopril/Hydrochlorothi) 1 Tab Tab, 1 TAB PO DAILY 05/13/25 Albuterol Sulfate (Albuterol Sulfate Hfa) 108 Mcg/Act Aer, 2 PUFF PO Q6HPRN PRN for wheezing 05/13/25 Cholecalciferol (VITAMIN D3) 2,000 Unit Tab, 1 CAP PO DAILY 05/13/25 Aspirin (Aspirin Low Dose) 81 Mg Tab, 1 TAB PO DAILY 05/13/25 Sertraline Hcl (Zoloft) 100 Mg Tab, 100 MG PO BID 03/05/15 Alprazolam (Xanax) 0.25 Mg Tb, 1 TAB PO HS 08/29/10 Benazepril Hcl (Lotensin) 5 Mg Tab, 1 TAB PO DAILY 08/29/10 Current Medications Current Medications Medications (Trade) Dose Ordered Sig/Renae Route PRN Reason Start Time Stop Time Status Last Admin Ceftriaxone Sodium 50 ml @ 100 mls/hr DAILY@09 IV 05/14/25 09:00 05/14/25 10:31 Lisinopril (Zestril Tablet) 10 mg DAILY PO 05/14/25 10:00 Aspirin 81 mg DAILY PO 05/14/25 10:00 05/14/25 10:32 Pantoprazole Sodium (Protonix) 40 mg DAILY IV 05/15/25 10:00 Sucralfate (Carafate Susp) 1 gm BID@0600,2200 GT 05/14/25 22:00 Nicotine (Nicoderm 14MG/ 24HR) 1 patch DAILY TD 05/15/25 10:00 Enoxaparin Sodium (Lovenox) 40 mg DAILY SC 05/15/25 10:00 Review of Systems Review of systems as per HPI Vital Signs Vital Signs Date Time Temp Pulse Resp B/P (MAP) Pulse Ox O2 Delivery O2 Flow Rate FiO2 05/14/25 13:01 98.4 86 18 123/83 (96) 94 98.4 05/13/25 18:00 Room Air 05/13/25 18:00 0 21 Physical Exam General: Well-developed well-nourished HEENT: NC/AT EOMI PERRLA O/P clear, no JVD or cervical lymphadenopathy, no scleral icterus Heart: Regular rate and rhythm, no murmurs rubs or gallops Lungs: Clear to auscultation bilaterally, no wheezes rales or rhonchi Abdomen: Soft, nontender, nondistended, no organomegaly, normoactive bowel sounds Extremity: No clubbing cyanosis or edema, no rashes or bruises Neuro: Cranial nerves 2-12 grossly intact, moves all four extremities, no asterixis Labs/Diagnostic Data Labs Test 05/14/25 05:00 05/13/25 11:19 Range/Units White Blood Count 9.6 4.4-10.8 10^3/uL Red Blood Count 4.97 4.0-5.20 10^6/uL Hemoglobin 14.4 12.2-16.2 g/dL Hematocrit 43.7 # 36.0-46.0 % Mean Corpuscular Volume 88.0 80.0-100.0 fL Mean Corpuscular Hemoglobin 29.0 28.0-32.0 pg Mean Corpuscular Hemoglobin Concent 33.0 32.0-36.0 g/dL Red Cell Distribution Width 13.7 11.8-14.3 % Platelet Count 286 140-450 10^3/uL Mean Platelet Volume 7.9 6.9-10.8 fL Neutrophils (%) (Auto) 69.4 37.0-80.0 % Lymphocytes (%) (Auto) 19.3 10.0-50.0 % Monocytes (%) (Auto) 10.1 0.0-12.0 % Eosinophils (%) (Auto) 0.8 0.0-7.0 % Basophils (%) (Auto) 0.4 0.0-2.0 % Neutrophils # (Auto) 6.7 1.6-8.6 10 ^3/uL Lymphocytes # (Auto) 1.8 0.4-5.4 10 ^3/uL Monocytes # (Auto) 1.0 0-1.3 10 ^3/uL Eosinophils # (Auto) 0.1 0-0.8 10 ^3/uL Basophils # (Auto) 0 0-0.2 10 ^3/uL Nucleated Red Blood Cells 0.2 % Sodium Level 138 136-145 mmol/L Potassium Level 4.0 3.5-5.1 mmol/L Chloride Level 101 98-107 mmol/L Carbon Dioxide Level 30 20-31 mmol/L Anion Gap 7 5-15 Blood Urea Nitrogen 12 9-23 mg/dL Creatinine 0.80 0.550-1.02 mg/dL Glomerular Filtration Rate Calc 86 >90 mL/min BUN/Creatinine Ratio 15.0 10.0-20.0 Serum Glucose 100 74-106 mg/dL Calcium Level 9.0 8.7-10.4 mg/dL Total Bilirubin 0.6 0.2-1.0 mg/dL Aspartate Amino Transferase (AST) 24 13-40 U/L Alanine Aminotransferase (ALT) 26 7-40 U/L Alkaline Phosphatase 38 L 46-116 U/L Total Protein 7.4 5.7-8.2 g/dL Albumin 4.3 3.2-4.8 g/dL Lipase 36 12-53 U/L Assessment Acute diverticulitis Problems(with codes): (1) ABDOMINAL PAIN, OTHER SPECIFIED SITE Plan/Recommendation Antibiotics Clear liquid diet advanced as tolerated Outpatient follow up with GI Pain control Plan discussed with: Patient NSÉTOR ROSE MD May 14, 2025 16:35
--- NOTE | 2025-05-14 16:40 | DVHPNRES ---
Progress Note Date Seen: May 14, 2025 Resident Creating Document: LISETTE BECKWITH RESIDENT Medical Necessity Reason Pt with a Central, PICC or Fol: No Subjective Review of Systems This is a 55-year-old female with past medical history of COPD, diabetes mellitus, dyslipidemia, hypertension, stroke, presented to the ER with chief complain of abdominal pain. Pain is located below the umbilicus, started 1 week back, worsening since last 2 days, described as dull pain, 8/10, increases with movement, nonradiating. Similar episode in past with episodes of diverticulitis in November 2024. Associated with nausea, diarrhea, 4 episodes yesterday. Denies constipation, vomiting. Previous hospitalization: November 2024 for diverticulitis PMHx: COPD, diabetes mellitus, dyslipidemia, hypertension, stroke PSHx: section, left breast lumpectomy, questionable knee surgery Social history: Smokes less than 1 pack a day since last 10 years, occasional alcohol use. No drug use. Home medication: Aspirin, lisinopril Allergic history: No known allergies ROS: Constitutional: Denies weight loss, fever and chills. HEENT: Denies changes in vision and hearing. Respiratory: Denies shortness of breath and cough Cardiovascular: Denies chest discomfort or palpitations GI: Abdominal pain. Denies nausea, vomiting : Denies dysuria and urinary frequency. Musculoskeletal: Denies myalgias and joint pain Skin: Denies rash and pruritus. Neurological: Denies dizziness, headache, vision or hearing problems 05/14/2025: Patient was seen at bedside today. Plain of abdominal pain, reproducible on palpation. Objective vital signs Vital Sign Date Time Temp Pulse Resp B/P (MAP) Pulse Ox O2 Delivery O2 Flow Rate FiO2 05/14/25 13:01 98.4 86 18 123/83 (96) 94 98.4 05/13/25 18:00 Room Air 05/13/25 18:00 0 21 Total Intake and Output 05/13/25 05/13/25 05/14/25 15:00 23:00 07:00 Intake Total 2150 ml 100 ml 100 ml Balance 2150 ml 100 ml 100 ml medications Current Medications Medications Dose Ordered Sig/Renae Route Start Time Stop Time Status Last Admin Dose Admin Ceftriaxone Sodium 50 ml @ 100 mls/hr DAILY@09 IV 05/14/25 09:00 05/14/25 10:31 Metronidazole 100 ml @ 100 mls/hr Q8HR IV 05/13/25 14:00 05/14/25 14:34 Lisinopril 10 mg DAILY PO 05/14/25 10:00 Aspirin 81 mg DAILY PO 05/14/25 10:00 05/14/25 10:32 Albuterol 2.5 mg Q6HPRN PRN NEB 05/13/25 13:00 Cancel Ketorolac Tromethamine 15 mg Q6HPRN PRN IV 05/13/25 13:00 05/18/25 12:59 Ondansetron HCl 4 mg Q4HP PRN IV 05/13/25 13:00 Acetaminophen 650 mg Q6HP PRN PO 05/13/25 13:00 05/13/25 22:23 Pantoprazole Sodium 40 mg DAILY IV 05/15/25 10:00 Sucralfate 1 gm BID@0600,2200 GT 05/14/25 22:00 Nicotine 1 patch DAILY TD 05/15/25 10:00 Enoxaparin Sodium 40 mg DAILY SC 05/15/25 10:00 Examination General: Patient alert and oriented in person, place and time. Patient following commands. HEENT: Normocephalic, atraumatic, moist mucous membranes Respiratory/pulmonary: Clear lungs bilaterally, vesicular murmurs present in almost all lung holman, no associated crackles or wheezes. Cardiovascular: Normal heart sounds S1 and S2 with no associated murmurs Abdomen: Generalized abdominal tenderness, more pronounced near the umbilicus. Mild epigastric tenderness. Extremities: There is no peripheral edema present at the lower extremities. Peripheral Pulses: 3+ Radial (R). 3+ Radial (L). 3+ Dorsalis pedis (R). 3+ Dorsalis pedis(L) Skin: No rashes or pruritus, there is no sacral edema present at this time. Neurological: Intact cranial nerves with no focal neurologic deficits laboratory and microbiology Laboratory Tests 05/14/25 05:00 Test 05/14/25 05:00 Range/Units Serum Glucose 100 74-106 mg/dL Problem List/Assessment/Plan Problem List/Assessment/Plan Acute diverticulitis Acute gastritis, possible Continue GI cocktail with Protonix, sucralfate Clear liquid diet IV ceftriaxone, metronidazole Supportive management with pain medications, Type 2 diabetes mellitus Sliding scale insulin A1c ordered Hypertension Continue lisinopril 10 mg home medication History of stroke History of COPD Dyslipidemia Lipid panel ordered Continue aspirin Nicotine dependence Counseled on bedside for more than 12 minutes Nicotine patch offered DIET: Clear liquid diet DVT PROPHYLAXIS: Lovenox GI PROPHYLAXIS: Protonix CODE STATUS: Goals of care discussed with patient at bedside for more than 17 minutes. Full code DISPOSITION: Med/surge Patient's status and plan discussed with the patient. Case discussed with Dr. Blankenship Plan discussed with: Patient, Other (Nurses) My Orders My Orders Orders - LISETTE BECKWITH RESIDENT Procedure Category Date Status Time Stool Bacterial IFRAH 05/14/25 Uncollected Culture 08:53 Stool Wbc LAB 05/14/25 Logged 08:53 Stool Occult Blood LAB 05/14/25 Logged 08:53 Sucralfate Susp PHA 05/14/25 In Process (Carafate Susp) 22:00 Nicotine 14mg/24hr PHA 05/15/25 In Process (Nicoderm 14mg/24hr) 10:00 Enoxaparin Sodium PHA 05/15/25 In Process (Lovenox) 10:00 Complete Blood Count LAB 05/15/25 Verified 04:00 Basic Metabolic Panel LAB 05/15/25 Verified 04:00 Date of Service: May 14, 2025 Billing Provider: JOANNE BLANKENSHIP MD Common Visit Codes: [id number] INP/OBS CARE(HIGH) LISETTE BECKWITH RESIDENT May 14, 2025 16:40
[2025-05-14] MEDS: ACCU-CHEK COMFORT CURVE STRIP VI SCH (17:00)
[2025-05-14] MEDS: InsuLIN REG 1unit/0.01ml Soln (100units/ml) SC SCH (17:00)
[2025-05-14] MEDS ORDERED: DEXTROSE (50%) 50ML SYRG IV PRN (17:00)
[2025-05-14 17:21] LABS: Triglycerides 138 mg/dL (< 150)
[2025-05-14 17:23] LABS: Cholesterol 151 mg/dL (< 200); HDL Cholesterol 39 mg/dL (40-59)
[2025-05-14] MEDS: SUCRALFATE 1 GM/10 ML ORAL SUSP GT SCH (21:28)
[2025-05-15] MEDS: KETOROLAC TROMETH 30 MG/ML 1ML VIAL IV PRN (00:19)
[2025-05-15 04:49] VITALS: BP 105/64; PULSE 81; RESP 16; TEMP 97.4; O2SAT 92
[2025-05-15 06:25] LABS: Hematocrit 42.2 % (36.0-46.0); Hemoglobin 13.9 g/dL (12.2-16.2); Mean Corpuscular Hemoglobin 29.0 pg (28.0-32.0); Mean Corpuscular Volume 87.7 fL (80.0-100.0); Nucleated Red Blood Cells % 0.1 %
[2025-05-15 06:40] LABS: Anion Gap 8 (5-15); Carbon Dioxide 28 mmol/L (20-31); Chloride 103 mmol/L (98-107); Potassium 3.7 mmol/L (3.5-5.1); Sodium 139 mmol/L (136-145)
[2025-05-15 06:41] LABS: Calcium 9.1 mg/dL (8.7-10.4)
[2025-05-15 06:46] LABS: BUN/Creatinine Ratio 13.4 (10.0-20.0); Glucose 85 mg/dL (74-106)
[2025-05-15 06:49] LABS: Blood Urea Nitrogen 9 mg/dL (9-23)
[2025-05-15 08:00] VITALS: PULSE 84; RESP 18; O2SAT 0
[2025-05-15 08:40] VITALS: BP 137/78; PULSE 84; RESP 18; TEMP 98.1; O2SAT 93
[2025-05-15 10:00] VITALS: O2SAT 96
[2025-05-15] MEDS: NICOTINE 14 MG/24HR TOPICAL PATCH TD SCH (10:00)
[2025-05-15] MEDS: PANTOPRAZOLE 40 MG/10 ML VIAL INJ IV SCH (10:31)
[2025-05-15] MEDS: ENOXAPARIN SOD 40 MG/0.4 ML SYRINGE SC SCH (10:31)
[2025-05-15] MEDS ORDERED: CIPR500T4 PO (10:52)
[2025-05-15] MEDS ORDERED: METR-344 PO (10:52)
--- NOTE | 2025-05-15 14:16 | DVHDSRES ---
Discharge Summary Date of Admission Resident Creating Document: LISETTE BECKWITH RESIDENT May 13, 2025 at 12:26 Date of Discharge: May 15, 2025 Labs/Diagnostic Data: Laboratory Results Test 05/15/25 06:20 05/15/25 04:17 05/14/25 05:00 05/13/25 11:19 POC Glucose 109 mg/dl (70-106) White Blood Count 7.5 10^3/uL (4.4-10.8) Red Blood Count 4.81 10^6/uL (4.0-5.20) Hemoglobin 13.9 g/dL (12.2-16.2) Hematocrit 42.2 % (36.0-46.0) Mean Corpuscular Volume 87.7 fL (80.0-100.0) Mean Corpuscular Hemoglobin 29.0 pg (28.0-32.0) Mean Corpuscular Hemoglobin Concent 33.0 g/dL (32.0-36.0) Red Cell Distribution Width 13.5 % (11.8-14.3) Platelet Count 261 10^3/uL (140-450) Mean Platelet Volume 8.2 fL (6.9-10.8) Neutrophils (%) (Auto) 61.3 % (37.0-80.0) Lymphocytes (%) (Auto) 27.5 % (10.0-50.0) Monocytes (%) (Auto) 9.8 % (0.0-12.0) Eosinophils (%) (Auto) 1.0 % (0.0-7.0) Basophils (%) (Auto) 0.4 % (0.0-2.0) Neutrophils # (Auto) 4.6 10 ^3/uL (1.6-8.6) Lymphocytes # (Auto) 2.1 10 ^3/uL (0.4-5.4) Monocytes # (Auto) 0.7 10 ^3/uL (0-1.3) Eosinophils # (Auto) 0.1 10 ^3/uL (0-0.8) Basophils # (Auto) 0 10 ^3/uL (0-0.2) Nucleated Red Blood Cells 0.1 % Sodium Level 139 mmol/L (136-145) Potassium Level 3.7 mmol/L (3.5-5.1) Chloride Level 103 mmol/L (98-107) Carbon Dioxide Level 28 mmol/L (20-31) Anion Gap 8 (5-15) Blood Urea Nitrogen 9 mg/dL (9-23) Creatinine 0.67 mg/dL (0.550-1.02) Glomerular Filtration Rate Calc 102 mL/min (>90) BUN/Creatinine Ratio 13.4 (10.0-20.0) Serum Glucose 85 mg/dL (74-106) Calcium Level 9.1 mg/dL (8.7-10.4) Hemoglobin A1c 6.5 % A1C (<5.7) Triglycerides Level 138 mg/dL (< 150) Cholesterol Level 151 mg/dL (< 200) LDL Cholesterol 94 mg/dL (< 100) HDL Cholesterol 39 mg/dL (40-59) Total Bilirubin 0.6 mg/dL (0.2-1.0) Aspartate Amino Transferase (AST) 24 U/L (13-40) Alanine Aminotransferase (ALT) 26 U/L (7-40) Alkaline Phosphatase 38 U/L (46-116) Total Protein 7.4 g/dL (5.7-8.2) Albumin 4.3 g/dL (3.2-4.8) Lipase 36 U/L (12-53) Other Laboratory Tests 05/15/25 04:17 Brief Hx & Hospital Course: History on admission: This is a 55-year-old female with past medical history of COPD, diabetes mellitus, dyslipidemia, hypertension, stroke, presented to the ER with chief complain of abdominal pain. Pain is located below the umbilicus, started 1 week back, worsening since last 2 days, described as dull pain, 8/10, increases with movement, nonradiating. Similar episode in past with episodes of diverticulitis in November 2024. Associated with nausea, diarrhea, 4 episodes yesterday. Denies constipation, vomiting. Brief hospital course: Initial CT revealed diverticulitis. Patient was started on IV ceftriaxone and metronidazole. Supportive management started with GI cocktail with Protonix, sucralfate and clear liquid diet. Medications were restarted and nicotine patch offered for nicotine dependence. GI was consulted, we will follow up outpatient for colonoscopy. Patient is stable for discharge. Conditions treated during stay: Acute diverticulitis Acute gastritis, possible Type 2 diabetes mellitus Hypertension History of stroke History of COPD Dyslipidemia Nicotine dependence Plan: Complete antibiotic course with ciprofloxacin and metronidazole for 10 days Continue home medications Follow up with PCP in one week Follow up with GI in outpatient clinic Operations or Procedures TECHNIQUE: CT of the abdomen and pelvis was performed without IV contrast. This exam was performed according to our departmental dose optimization program. Up-to-date CT equipment and radiation dose reduction techniques are utilized as appropriate. CTDI 12 DLP 590 COMPARISON: CT CT AB PEL WITH IV CON ONLY on DOS: 12/07/24, CT CT AB PEL WO CON- NO ORAL OR IV on DOS: 05/01/23, CT AB PEL WITH IV CON ONLY on DOS: 06/03/19 FINDINGS: Evaluation is limited, given the right hepatic dome was excluded on this study Abdomen/Pelvis: The spleen, pancreas, gallbladder, adrenal glands, kidneys, uterus, bladder, and imaged liver are unremarkable. The abdominal aorta is normal in course and caliber. There are minimal aortic atherosclerotic calcifications. There is no free intraperitoneal air or fluid. There is no enlarged abdominal pelvic lymph node. There is no small bowel wall thickening or dilatation. The appendix is normal. There is colonic diverticulosis, moderate at the sigmoid segment. There is mild focal descending colon wall thickening with mild inflammation Other: The imaged lower thorax demonstrates mild linear atelectatic changes at both lung bases No acute osseous abnormality is evident. Impression: Acute diverticulitis at the descending colon. Condition at Discharge: Stable Final Diagnosis/Problems List Acute diverticulitis Acute gastritis, possible Type 2 diabetes mellitus Hypertension History of stroke History of COPD Dyslipidemia Nicotine dependence Discharge Disposition: Home Discharge Instruct/Medications Diet: Cardiac 2g Na,low cholest Activity: No Restrictions, As Tolerated Follow Up/Referral: Follow up with PCP in one week Follow up with GI in outpatient clinic Medications: As per EHR New Medications: Ciprofloxacin Hcl (Ciprofloxacin Hcl) 500 Mg Tab 1 TAB PO BID for 10 Days, #20 TAB Metronidazole (Flagyl) 500 Mg Tab 500 MG PO TID for 10 Days, #30 TAB Scheduled Alprazolam (Xanax), 1 TAB PO HS, (Reported) Aspirin (Aspirin Low Dose), 1 TAB PO DAILY, (Reported) Benazepril Hcl (Lotensin), 1 TAB PO DAILY, (Reported) Cholecalciferol (Vitamin D3), 1 CAP PO DAILY, (Reported) Ciprofloxacin Hcl (Cipro), 250 MG PO BID Ciprofloxacin Hcl (Ciprofloxacin Hcl), 1 TAB PO BID Lisinopril & Hydrochlorothiazi (Lisinopril/Hydrochlorothi), 1 TAB PO DAILY, (Reported) Metronidazole (Flagyl), 1 TAB PO BID Metronidazole (Flagyl), 500 MG PO TID Sertraline Hcl (Zoloft), 100 MG PO BID, (Reported) Scheduled PRN Albuterol Sulfate (Albuterol Sulfate Hfa), 2 PUFF PO Q6HPRN PRN for wheezing, (Reported) Discharge Statement: "Patient was advised to return to the ER or call 911 if any headaches, dizziness, shortness of breath, chest pain, abdominal pain, bleeding, fevers, or worsening of medical condition. Patient was counseled about treatment plan, medications, possible side effects, patientverbalized understanding. All questions were answered to the best of my ability. This discharge took greater then 30 minutes in planning, reviewing documentation, counseling the patient, and discussing with other team members." ASSESSMENT ASSESSMENT Assessment acute diverticulosis Date of Service: May 15, 2025 Billing Provider: JOANNE GONZALEZ MD Common Visit Codes: 55766-NAW/OBS DISCH DAY >30min LISETTE BECKWITH RESIDENT May 15, 2025 14:16
== END 2025-05-15 13:07 | disposition home or self-care (01) | DRG 244 ==
LOC: EDUNIT# 10:25 → EDBD 10:25 → ER 10:32 → OVERFLOW 12:26 → WEST WING 21:53
PROVIDERS: ADMIT Internal Medicine Geriatric Medicine; ATTEND Internal Medicine Geriatric Medicine
DX: K57.32 Diverticulitis of large intestine without perforation or abscess without bleeding (principal); E11.9 Type 2 diabetes mellitus without complications; K29.00 Acute gastritis without bleeding; E78.5 Hyperlipidemia, unspecified; F32.A Depression, unspecified; F41.9 Anxiety disorder, unspecified; I10 Essential (primary) hypertension; J44.9 Chronic obstructive pulmonary disease, unspecified; F17.210 Nicotine dependence, cigarettes, uncomplicated; Z87.11 Personal history of peptic ulcer disease; Z86.73 Personal history of transient ischemic attack (TIA), and cerebral infarction without residual deficits; Z85.41 Personal history of malignant neoplasm of cervix uteri; Z83.3 Family history of diabetes mellitus; Z82.49 Family history of ischemic heart disease and other diseases of the circulatory system; Z82.3 Family history of stroke; Z80.9 Family history of malignant neoplasm, unspecified; Z98.51 Tubal ligation status
CPT/HCPCS: 36415; 74176; 80048; 80053; 80061; 82962; 83036; 83690; 85025; 99291; 99292; G0378; J1885; J2405; J2470; J3490

== ENCOUNTER 2025-05-21 10:00 | Inpatient (IN) | payer MEDICAID ==
[2025-05-21] VITALS (7 sets, daily range): BP systolic 102–121; BP diastolic 61–75; PULSE 93–103; RESP 14–18; TEMP 97.9–98.6; O2SAT 0–97
[~2025-05-21] VITALS: Ht 160 cm; Wt 82.2 kg
[~2025-05-21 10:00] MED LIST changes: +ALBU108A5 PO; +ASPI-325 PO; +CHOL20002 PO; +CIPR500T4 PO; +LISI-287 PO
[2025-05-21 10:42] LABS: Nucleated Red Blood Cells % 0.1 %
[2025-05-21 10:46] LABS: Hematocrit 53.0 % (36.0-46.0); Hemoglobin 17.3 g/dL (12.2-16.2); Mean Corpuscular Hemoglobin 28.8 pg (28.0-32.0); Mean Corpuscular Volume 88.1 fL (80.0-100.0)
--- NOTE | 2025-05-21 10:47 | ED.PDOC ---
GI ASSESSMENT HPI Comments This is a 55 year old female presenting to the ED with chief complaint of abdominal pain. Patient reports that she has been experiencing lower abdominal pain with associated nausea and diarrhea for the past few days. Patient relays that she was previously admitted to [facility] for diverticulitis on 05/13 and discharged on the with antibiotics, but no relief has been noted. Patient states that she was also recently diagnosed with HPV, pending OBGYN follow up. Patient denies any vomiting, blood in stool, hematemesis, dysuria, or flank pain. Chief Complaint: Abdominal Pain Time Seen by MD: 10:45 Primary Care Provider: unknown Reviewed Notes: Nurses Notes, Medications, Allergies Allergies: Coded Allergies: NO KNOWN ALLERGIES (Unverified , 11/15/18) Home Meds Active Scripts Ciprofloxacin Hcl (Ciprofloxacin Hcl) 500 Mg Tab, 1 TAB PO BID for 10 Days, #20 TAB Prov:YING SERRA 05/15/25 Metronidazole (Flagyl) 500 Mg Tab, 500 MG PO TID for 10 Days, #30 TAB Prov:YING SERRA 05/15/25 Metronidazole (Flagyl) 500 Mg Tab, 1 TAB PO BID for 10 Days, #20 TAB Prov:GO CLEMONS MD 12/07/24 Ciprofloxacin Hcl (Cipro) 250 Mg Tab, 250 MG PO BID for 10 Days, #20 TAB Prov:GO CLEMONS MD 12/07/24 Reported Medications Lisinopril & Hydrochlorothiazi (Lisinopril/Hydrochlorothi) 1 Tab Tab, 1 TAB PO DAILY 05/13/25 Albuterol Sulfate (Albuterol Sulfate Hfa) 108 Mcg/Act Aer, 2 PUFF PO Q6HPRN PRN for wheezing 05/13/25 Cholecalciferol (VITAMIN D3) 2,000 Unit Tab, 1 CAP PO DAILY 05/13/25 Aspirin (Aspirin Low Dose) 81 Mg Tab, 1 TAB PO DAILY 05/13/25 Sertraline Hcl (Zoloft) 100 Mg Tab, 100 MG PO BID 03/05/15 Alprazolam (Xanax) 0.25 Mg Tb, 1 TAB PO HS 08/29/10 Benazepril Hcl (Lotensin) 5 Mg Tab, 1 TAB PO DAILY 08/29/10 Information Source: Patient Mode of Arrival: Ambulatory Timing: Days Duration: Since onset Prehospital treatment: None Quality: Sharp Vomitus: None Stool: Watery Severity: Moderate Recent: Antibiotics Pain Location: Suprapubic Modifying Factors: Nothing Associated sign and symptoms: Nausea, Diarrhea, Abdominal Pain Past Medical History PAST MEDICAL HISTORY: Anxiety, COPD, Depression, DM, High Lipids, HTN, PUD, TIA Past Medical History (Other): Diverticulitis, HPV Surgical History: BTL, TOOL KEEPER History: No Pertinent TOOL KEEPER History Family History Family History: Reviewed,noncontributory to illness, Family hx of DM, Family hx of Cancer, Family hx of heart prince, Family hx of HTN, Family hx of stroke Social History Smoker: Cigarettes, Less Than 1 Pack/Day Alcohol: Denies ETOH Use Drugs: Denies Drug Use Lives In: Home Constitutional: denies: chills, diaphoresis, fatigue, fever, malaise, sweats, weakness, others EENTM: denies: blurred vision, double vision, ear bleeding, ear discharge, ear drainage, ear pain, ear ringing, eye pain, eye redness, hearing loss, mouth pain, mouth swelling, nasal discharge, nose bleeding, nose congestion, nose pain, photophobia, tearing, throat pain, throat swelling, voice changes, others Respiratory: denies: cough, hemoptysis, orthopnea, SOB at rest, shortness of breath, SOB with excertion, stridor, wheezing, others Cardiovascular: denies: chest pain, dizzy spells, diaphoresis, Dyspnea on exertion, edema, irregular heart beat, left arm pain, lightheadedness, palpitations, PND, syncope, others Gastrointestinal: reports: abdominal pain, diarrhea, nausea; denies: abdomen distended, blood streaked bowels, constipated, dysphagia, difficulty swallowing, hematemesis, melena, poor appetite, poor fluid intake, rectal bleeding, rectal pain, vomiting, others Genitourinary: denies: abnormal vagina bleeding, burning, dyspareunia, dysuria, flank pain, frequency, hematuria, incontinence, pain, , vagina discharge, urgency, others Neurological: denies: dizziness, fainting, headache, left sided numbness, left sided weakness, numbness, paresthesia, pre-existing deficit, right sided numbness, right sided weakness, seizure, speech problems, tingling, tremors, weakness, others Musculoskeletal: denies: back pain, gout, joint pain, joint swelling, muscle pain, muscle stiffness, neck pain, others Integumetry: denies: bruises, change in color, change in hair/nails, dryness, laceration, lesions, lumps, rash, wounds, others Allergic/Immunocompromised: denies: Difficulty Healing, Frequent Infections, Hives, Itching, others Hematologic/Lymphatic: denies: anemia, blood clots, easy bleeding, easy bruising, swollen glands, others Endocrine: denies: excessive hunger, excessive sweating, excessive thirst, excessive urination, flushing, intolerance to cold, intolerance to heat, unexplained weight gain, unexplained weight loss, others Psychiatric: denies: anxiety, bipolar disorder, depression, hopeless, panic disorder, schizophrenia, sleepless, suicidal, others All Other Systems: Reviewed and Negative Physical Exam General Appearance: Moderate Distress HEENT: Normal ENT Inspection, Pharynx Normal, TMs Normal Neck: Full Range of Motion, Non-Tender, Normal, Normal Inspection Respiratory: Chest Non-Tender, Lungs Clear, No Accessory Muscle Use, No Respiratory Distress, Normal Breath Sounds Cardiovascular: No Edema, No JVD, No Murmur, No Gallop, Normal Peripheral Pulses, Regular Rate/Rhythm Breast Exam: Deferred Gastrointestinal: No Organomegaly, No Pulsatile Mass, Normal Bowel Sounds, RLQ, RUQ, Soft, Suprapubic, Tenderness Genitalia: Deferred Pelvic: Deferred Rectal: Deferred Extremities: No calf tenderness, Normal capillary refill, Normal inspection, Normal range of motion, Non-tender, No pedal edema Musculoskeletal : Apperance: Normal Neurologic: Alert, brim buster II-XII nml as Tested, No Motor Deficits, Normal Affect, Normal Mood, No Sensory Deficits Cerebellar Function: Normal Reflexes: Normal Skin: Dry, Normal Color, Warm Lymphatic: No Adenopathy Was a procedure done? Was a procedure done?: No GI differential Dx Differential Diagnosis: Appendicitis, Cholecystitis, Gastritis/PUD, Gastroenteritis, Pancreatitis, UTI, Electrolyte Imbalance, Food Poisoning X-Ray, Labs, Meds, VS Vital Signs Date Time Temp Pulse Resp B/P (MAP) Pulse Ox O2 Delivery O2 Flow Rate FiO2 05/21/25 10:01 98.1 110 18 116/72 97 98.1 Lab Test 05/21/25 10:21 Range/Units White Blood Count 18.7 #H 4.4-10.8 10^3/uL Red Blood Count 6.02 H 4.0-5.20 10^6/uL Hemoglobin 17.3 #H 12.2-16.2 g/dL Hematocrit 53.0 #H 36.0-46.0 % Mean Corpuscular Volume 88.1 80.0-100.0 fL Mean Corpuscular Hemoglobin 28.8 28.0-32.0 pg Mean Corpuscular Hemoglobin Concent 32.7 32.0-36.0 g/dL Red Cell Distribution Width 14.1 11.8-14.3 % Platelet Count 372 140-450 10^3/uL Mean Platelet Volume 8.0 6.9-10.8 fL Neutrophils (%) (Auto) 78.8 37.0-80.0 % Lymphocytes (%) (Auto) 12.2 10.0-50.0 % Monocytes (%) (Auto) 8.2 0.0-12.0 % Eosinophils (%) (Auto) 0.2 0.0-7.0 % Basophils (%) (Auto) 0.6 0.0-2.0 % Neutrophils # (Auto) 14.7 H 1.6-8.6 10 ^3/uL Lymphocytes # (Auto) 2.3 0.4-5.4 10 ^3/uL Monocytes # (Auto) 1.5 H 0-1.3 10 ^3/uL Eosinophils # (Auto) 0 0-0.8 10 ^3/uL Basophils # (Auto) 0.1 0-0.2 10 ^3/uL Nucleated Red Blood Cells 0.1 % Sodium Level 134 #L 136-145 mmol/L Potassium Level 4.3 3.5-5.1 mmol/L Chloride Level 101 98-107 mmol/L Carbon Dioxide Level 24 20-31 mmol/L Anion Gap 9 5-15 Blood Urea Nitrogen 11 9-23 mg/dL Creatinine 0.89 # 0.550-1.02 mg/dL Glomerular Filtration Rate Calc 76 >90 mL/min BUN/Creatinine Ratio 12.4 10.0-20.0 Serum Glucose 130 H 74-106 mg/dL Lactic Acid Level 1.2 0.4-2.0 mmol/L Calcium Level 9.8 8.7-10.4 mg/dL Total Bilirubin 1.0 0.2-1.0 mg/dL Aspartate Amino Transferase (AST) 19 13-40 U/L Alanine Aminotransferase (ALT) 38 7-40 U/L Alkaline Phosphatase 37 L 46-116 U/L Total Protein 8.2 5.7-8.2 g/dL Albumin 4.7 3.2-4.8 g/dL CT Abd/Pel indicates: Severe colonic diverticulosis with moderate colonic diverticulitis. The patient's CBC shows an elevated white blood cell count of 18.7 The chemistry panel is within normal limits. The patient's lactic acid level is within normal limits The patient is showing signs of diverticulitis. The patient is being started on Flagyl IV piggyback The patient was given morphine IV push for the pain The patient was given Zofran IV push for the nausea The patient is being admitted at this time Images Reviewed?: Images reviewed and evaluated by me Time of 1ST Reevaluation: :55 Reevaluation 1ST: Unchanged Patient Education/Counseling: Diagnosis, Treatment, Prognosis Family Education/Counseling: No Family Present SEPSIS Sepsis Screen Date sepsis recognized/suspect: May 21, 2025 Time Sepsis recognized/suspect: 1006 Recent Procedure: No On Antibiotic Therapy: Yes Respiratory Rate >20: No Heart Rate >90: Yes Temp<36 C (96.8 F) or >38.3 C: No SBP <90 or MAP <65 mmHG: No New Acute Mental Status Change: No Is the patient on CPAP, BIPAP,: No Physician Orders Blood Culture (05/21/25 10:07) Ct Ab Pel Wo Con-No Oral Or Iv (05/21/25 10:42) Heplock Iv (05/21/25 10:42) Metronidazole 500mg/100ml (Flagyl 500mg/ (05/21/25 11:45) Vital Signs Date Time Temp Pulse Resp B/P (MAP) Pulse Ox O2 Delivery O2 Flow Rate FiO2 05/21/25 10:01 98.1 110 18 116/72 97 98.1 Laboratory Tests Test 05/21/25 10:21 Lactic Acid Level 1.2 mmol/L (0.4-2.0) White Blood Count 18.7 10^3/uL (4.4-10.8) #H Departure 1 Departure Time of Disposition: 11:55 Impression: Primary Impression: Intractable abdominal pain Additional Impression: Acute diverticulitis of intestine Disposition: 09 ADMITTED INPATIENT Admit to: Med Surg Condition: Fair Critical Care Note Critical Care Time?: No Stability Stability form required: Yes Unstable for transfer: ED Physician Assesment (Clinical assesment) Heart Score Heart Score: Heart Score Response (Comments) Value History N/A 0 EKG N/A 0 Age N/A 0 Risk Factors N/A 0 Troponin N/A 0 Total 0 I personally scribed for JLUIS ZAVALETA MD ([email or web address]) on 05/21/25 at 10:47. Electronically submitted by Stephon Wyatt ([email or web address]). I personally scribed for JLUIS ZAVALETA MD ([email or web address]) on 05/21/25 at 11:38. Electronically submitted by Stephon Wyatt ([email or web address]). JLUIS ZAVALETA MD May 21, 2025 10:47
[2025-05-21 10:57] LABS: Alanine Aminotransferase 38 U/L (7-40); Albumin 4.7 g/dL (3.2-4.8); Anion Gap 9 (5-15); BUN/Creatinine Ratio 12.4 (10.0-20.0); Bilirubin, Total 1.0 mg/dL (0.2-1.0); Blood Urea Nitrogen 11 mg/dL (9-23); Calcium 9.8 mg/dL (8.7-10.4); Carbon Dioxide 24 mmol/L (20-31); Chloride 101 mmol/L (98-107); Potassium 4.3 mmol/L (3.5-5.1); Total Protein 8.2 g/dL (5.7-8.2)
[2025-05-21 10:58] LABS: Alkaline Phosphatase 37 U/L (46-116); Glucose 130 mg/dL (74-106); Sodium 134 mmol/L (136-145)
--- NOTE | 2025-05-21 11:31 | DVH ---
CT CT AB PEL WO CON-NO ORAL OR IV INDICATION: pain EXAM DATE: 05/21/2025 10:50 AM COMPARISON: CT CT AB PEL WO CON-NO ORAL OR IV on DOS: 05/13/25, CT CT AB PEL WO CON-NO ORAL OR IV on DOS: 05/01/23, CT AB PEL WITH IV CON ONLY on DOS: 06/03/19 RADIATION DOSE: CTDIvol: 14 mGy, DLP: 897 mGy*cm PROCEDURE: Helical CT images were obtained of the abdomen and pelvis without IV contrast Sagittal and coronal reconstructions are provided. ORAL CONTRAST: None. ADDITIONAL IMAGES / REFORMATS: None All C T scans at this medical facility are performed using dose modulation techniques as appropriate to a p erformed exam including the following: Automated exposure control was utilized; adjustment of the MA and/or KV according to patient size; and use of iterative reconstruction technique. FINDINGS: LUNG BASE: Right basilar atelectasis. LIVER: Normal. GALLBLADDER AND BILIARY TREE: No calcified gallstones. Normal caliber wall. No intra- or extrahepatic biliary ductal dilation. PANCREAS: Normal. SPLEEN: Normal. BOWEL: Severe colonic diverticulosis with moderate colonic diverticulitis. ADRENALS: Normal. KIDNEYS AND URETER: Normal. BLADDER: Normal. REPRODUCTIVE ORGANS: Normal. LYMPH NODES:No lymphadenopathy. PERITONEUM: No ascites or free air. No other fluid collection. VESSELS: Scattered atherosclerotic calcifications are noted. RETROPERITONEUM: Normal. ABDOMINAL WALL: Normal. BONES: Scattered osseous degenerative changes are noted. IMPRESSION: Severe colonic diverticulosis with moderate colonic diverticulitis.
[2025-05-21] MEDS: ONDANSETRON HCL 4 MG/2 ML VIAL IV ONE (12:07)
[2025-05-21] MEDS: SODIUM CHLORIDE 0.9% 1,000 ML IVB ONE (12:07)
[2025-05-21] MEDS: MORPHINE SULFATE 4 MG/ML SYR/VIAL IV ONE (12:07)
[2025-05-21] MEDS ORDERED: MORPHINE SULFATE INJ 2 MG/ml SYRG IV PRN (12:30)
[2025-05-21] MEDS ORDERED: ONDANSETRON HCL 4 MG/2 ML VIAL IV PRN (12:30)
[2025-05-21] MEDS ORDERED: DEXTROSE (50%) 50ML SYRG IV PRN ×2 (12:30→13:45)
[2025-05-21] MEDS ORDERED: ACETAMINOPHEN 325 MG TAB PO PRN (12:30)
[2025-05-21] MEDS: PANTOPRAZOLE 40 MG/10 ML VIAL INJ IV ONE (13:00)
[2025-05-21] MEDS: SODIUM CHLORIDE 0.9% 1,000 ML IV SCH ×2 (13:00→13:52)
--- NOTE | 2025-05-21 13:41 | DVHHP2 ---
History of Present Illness Reason for Visit: Abdominal pain due to diverticulitis History of Present Illness This is a 55-year-old female with history of anxiety, COPD, depression, type 2 DM, hyperlipidemia, hypertension, TIA and PUD presents to ED with chief complaint of abdominal pain associated with nausea, vomiting and diarrhea x3 days. Patient reports previously admitted and discharged from this facility for diverticulitis on 05/15/2025 and was placed on antibiotics. The patient states that she has been intermittently taking antibiotics due to nausea and vomiting. She reports that her symptoms has not resolved and in fact is getting progressively worse and due to this would like to be admitted at this facility. The patient will be admitted under hospitalist care to the medical-surgical unit. The patient denies fever, chills, headache, dizziness, palpitation, shortness of breath, chest pain, constipation and other associated symptoms. The plan has been discussed with the patient and primary RN in which all questions concerns have been addressed. Cardiovascular: HTN, hyperipidemia Pulmonary: COPD [employer]OR [employer]ARDING: TIA GI: Peptic Ulcer disease Psych: Anxiety, Depression Endocrine: Diabetes Family History: CVA Smoke: <1 pack per day ALCOHOL: none Drugs: None Lives: with Family Domestic Violence: Neg Review of Systems Gastrointestinal: Nausea, Vomiting, Abdominal Pain, Diarrhea Allergies: Coded Allergies: NO KNOWN ALLERGIES (Unverified , 11/15/18) Medications Current Medications Medications Dose Ordered Sig/Renae Route Start Time Stop Time Status Last Admin Dose Admin Metronidazole 100 ml @ 100 mls/hr Q8HR IV 05/21/25 14:00 Ceftriaxone Sodium 50 ml @ 100 mls/hr DAILY@09 IV 05/22/25 09:00 Pantoprazole Sodium 40 mg DAILY IV 05/22/25 10:00 Ketorolac Tromethamine 15 mg Q6HPRN PRN IV 05/21/25 12:30 05/26/25 12:29 Diagnostic Test (Pha) 1 strip ACHS 05/21/25 17:00 Insulin Human Regular ACHS SC 05/21/25 17:00 Dextrose 50 ml UD PRN IV 05/21/25 12:30 Sodium Chloride 1,000 ml @ 75 mls/hr [id number] IV 05/21/25 12:30 Ondansetron HCl 4 mg Q4HP PRN IV 05/21/25 12:30 Enoxaparin Sodium 40 mg DAILY SC 05/22/25 10:00 Acetaminophen 650 mg Q6HP PRN PO 05/21/25 12:30 Morphine Sulfate 2 mg Q4HPRN PRN IV 05/21/25 12:30 Exam Vital Signs Vital Signs Date Time Temp Pulse Resp B/P (MAP) Pulse Ox O2 Delivery O2 Flow Rate FiO2 05/21/25 12:10 101 14 94 Room Air* 0 21 05/21/25 12:10 97.9 102/61 (75) 97.9 General Appearance: Alert, Oriented X3, Cooperative, No acute distress HEENT: Atraumatic, PERRLA, Mucous membr. moist/pink Respiratory: Clear to auscultation, Normal air movement Cardiovascular: Normal S1, Normal S2, No murmurs Abdominal: Normal bowel sounds, Soft, No hepatospenomegaly, No masses Extremities: No clubbing, No cyanosis, No edema, Normal pulses, No tenderness/swelling Skin: No rashes, No breakdown Neuro: Normal gait, Normal speech, Strength at 5/5 X4 ext, Normal tone, Sensation intact, Cranial nerves 3-12 NL Psych/Mental Status: Mental status NL, Mood NL Labs/Xrays Labs Test 05/21/25 10:21 Range/Units White Blood Count 18.7 #H 4.4-10.8 10^3/uL Red Blood Count 6.02 H 4.0-5.20 10^6/uL Hemoglobin 17.3 #H 12.2-16.2 g/dL Hematocrit 53.0 #H 36.0-46.0 % Mean Corpuscular Volume 88.1 80.0-100.0 fL Mean Corpuscular Hemoglobin 28.8 28.0-32.0 pg Mean Corpuscular Hemoglobin Concent 32.7 32.0-36.0 g/dL Red Cell Distribution Width 14.1 11.8-14.3 % Platelet Count 372 140-450 10^3/uL Mean Platelet Volume 8.0 6.9-10.8 fL Neutrophils (%) (Auto) 78.8 37.0-80.0 % Lymphocytes (%) (Auto) 12.2 10.0-50.0 % Monocytes (%) (Auto) 8.2 0.0-12.0 % Eosinophils (%) (Auto) 0.2 0.0-7.0 % Basophils (%) (Auto) 0.6 0.0-2.0 % Neutrophils # (Auto) 14.7 H 1.6-8.6 10 ^3/uL Lymphocytes # (Auto) 2.3 0.4-5.4 10 ^3/uL Monocytes # (Auto) 1.5 H 0-1.3 10 ^3/uL Eosinophils # (Auto) 0 0-0.8 10 ^3/uL Basophils # (Auto) 0.1 0-0.2 10 ^3/uL Nucleated Red Blood Cells 0.1 % Sodium Level 134 #L 136-145 mmol/L Potassium Level 4.3 3.5-5.1 mmol/L Chloride Level 101 98-107 mmol/L Carbon Dioxide Level 24 20-31 mmol/L Anion Gap 9 5-15 Blood Urea Nitrogen 11 9-23 mg/dL Creatinine 0.89 # 0.550-1.02 mg/dL Glomerular Filtration Rate Calc 76 >90 mL/min BUN/Creatinine Ratio 12.4 10.0-20.0 Serum Glucose 130 H 74-106 mg/dL Lactic Acid Level 1.2 0.4-2.0 mmol/L Calcium Level 9.8 8.7-10.4 mg/dL Total Bilirubin 1.0 0.2-1.0 mg/dL Aspartate Amino Transferase (AST) 19 13-40 U/L Alanine Aminotransferase (ALT) 38 7-40 U/L Alkaline Phosphatase 37 L 46-116 U/L Total Protein 8.2 5.7-8.2 g/dL Albumin 4.7 3.2-4.8 g/dL ORDERING PHYSICIAN: JLUIS ZAVALETA MD PROCEDURE(s): ABPL - CT AB PEL WO CON-NO ORAL OR IV REASON: pain ORDER NUMBER(s): [id number], ACCESSION NUMBER(s): [id number] CT CT AB PEL WO CON-NO ORAL OR IV INDICATION: pain EXAM DATE: 05/21/2025 10:50 AM COMPARISON: CT CT AB PEL WO CON-NO ORAL OR IV on DOS: 05/13/25, CT CT AB PEL WO CON-NO ORAL OR IV on DOS: 05/01/23, CT AB PEL WITH IV CON ONLY on DOS: 06/03/19 RADIATION DOSE: CTDIvol: 14 mGy, DLP: 897 mGy*cm PROCEDURE: Helical CT images were obtained of the abdomen and pelvis without IV contrast Sagittal and coronal reconstructions are provided. ORAL CONTRAST: None. ADDITIONAL IMAGES / REFORMATS: None All CT scans at this medical facility are performed using dose modulation techniques as appropriate to a performed exam including the following: Automated exposure control was utilized; adjustment of the MA and/or KV according to patient size; and use of iterative reconstruction technique. FINDINGS: LUNG BASE: Right basilar atelectasis. LIVER: Normal. GALLBLADDER AND BILIARY TREE: No calcified gallstones. Normal caliber wall. No intra- or extrahepatic biliary ductal dilation. PANCREAS: Normal. SPLEEN: Normal. BOWEL: Severe colonic diverticulosis with moderate colonic diverticulitis. ADRENALS: Normal. KIDNEYS AND URETER: Normal. BLADDER: Normal. REPRODUCTIVE ORGANS: Normal. LYMPH NODES:No lymphadenopathy. PERITONEUM: No ascites or free air. No other fluid collection. VESSELS: Scattered atherosclerotic calcifications are noted. RETROPERITONEUM: Normal. ABDOMINAL WALL: Normal. BONES: Scattered osseous degenerative changes are noted. IMPRESSION: Severe colonic diverticulosis with moderate colonic diverticulitis. ATED BY: ANDREW GRANADO MD DICTATED DATE/TIME: 05/21/251127 SIGNED BY: ANDREW GRANADO MD SIGNED DATE/TIME: 05/21/251127 CC: SEPSIS Sepsis Screen Date sepsis recognized/suspect: May 21, 2025 Time Sepsis recognized/suspect: 1210 Recent Procedure: No On Antibiotic Therapy: No Respiratory Rate >20: No Heart Rate >90: Yes Temp<36 C (96.8 F) or >38.3 C: No SBP <90 or MAP <65 mmHG: No New Acute Mental Status Change: No Is the patient on CPAP, BIPAP,: No Physician Orders Blood Culture (05/21/25 10:07) Ct Ab Pel Wo Con-No Oral Or Iv (05/21/25 10:42) Heplock Iv (05/21/25 10:42) Metronidazole 500mg/100ml (Flagyl 500mg/ (05/21/25 14:00) Ceftriaxone 1gm/50ml (Rocephin) (05/22/25 09:00) Pantoprazole (Protonix) (05/22/25 10:00) Ketorolac Injection (Toradol Injection) (05/21/25 12:30) Glucose Blood (Accu-Chek Comfort Curve T (05/21/25 17:00) Insulin R (Human) (Insulin R) (05/21/25 17:00) Dextrose 50% Syringe (05/21/25 12:30) Admit (05/21/25 12:25) Sodium Chloride 0.9% (05/21/25 12:30) Ondansetron Hcl (Zofran) (05/21/25 12:30) Enoxaparin Sodium (Lovenox) (05/22/25 10:00) Complete Blood Count (05/22/25 04:00) Comprehensive Metabolic Panel (05/22/25 04:00) Condition: Fair (05/21/25 12:25) Acetaminophen Tablet (Tylenol Tablet) (05/21/25 12:30) Bedrest With Bathroom Privileg (05/21/25 12:25) Morphine Sulfate Injection (05/21/25 12:30) Vital Signs Date Time Temp Pulse Resp B/P (MAP) Pulse Ox O2 Delivery O2 Flow Rate FiO2 05/21/25 12:10 101 14 94 Room Air* 0 21 05/21/25 12:10 97.9 101 14 102/61 (75) 94 97.9 05/21/25 12:07 110 16 104/71 05/21/25 10:01 98.1 110 18 116/72 97 98.1 Laboratory Tests Test 05/21/25 10:21 Lactic Acid Level 1.2 mmol/L (0.4-2.0) White Blood Count 18.7 10^3/uL (4.4-10.8) #H Medications Medications Dose Ordered Sig/Renae Route Start Time Stop Time Status Last Admin Dose Admin Metronidazole 100 ml @ 100 mls/hr ONCE ONCE IV 05/21/25 11:45 05/21/25 12:44 DC 05/21/25 13:00 100 MLS/HR Morphine Sulfate 2 mg ONCE ONCE IV 05/21/25 10:45 05/21/25 10:46 DC 05/21/25 12:07 2 MG Ondansetron HCl 4 mg ONCE ONCE IV 05/21/25 10:45 05/21/25 10:46 DC 05/21/25 12:07 4 MG Sodium Chloride 1,000 ml @ 1,000 mls/hr Q1H ONCE IVB 05/21/25 10:45 05/21/25 11:44 DC 05/21/25 12:07 1,000 MLS/HR Assessment/Plan Assessment/Plan Abdominal pain due to diverticulitis--patient complaint of abdominal pain associated with nausea, vomiting and diarrhea x3 days Recently admitted and discharged for diverticulitis at this facility on 05/15/2025 placed on antibiotics Patient reports intermittently taking antibiotics due to nausea and vomiting Admit to medical-surgical unit Reviewed CBC shows leukocytosis Reviewed BMP normal Lactic acid 1.[address] abdomen/pelvis shows severe diverticulosis with moderate diverticulitis IV hydration IV antibiotic dual therapy ceftriaxone and Flagyl IV Toradol as needed for pain IV Protonix now and daily COPD-controlled Albuterol q.2h p.r.n. shortness of breath Type 2 DM Regular insulin mild SS a.c. and HS Accu-Cheks per protocol Clear liquid diet Hypertension-controlled Continue antihypertensive agent Continue to monitor Depression Continue Zoloft as prescribed Anxiety Continue Xanax as prescribed Reconcile home meds DVT prophylaxis not indicated patient ambulatory PUD prophylaxis Labs in a.m. Discussed plan of care with the patient in which all questions concerns have been addressed Plan discussed with: Patient My Orders Orders - SHAWNA WESTFALL BOOK COVERER Procedure Category Date Status Time Metronidazole PHA 05/21/25 In Process 500mg/100ml (Flagyl 14:00 Ceftriaxone 1gm/50ml PHA 05/22/25 In Process (Rocephin) 09:00 Pantoprazole PHA 05/22/25 In Process (Protonix) 10:00 Ketorolac Injection PHA 05/21/25 In Process (Toradol Injection) 12:30 Glucose Blood PHA 05/21/25 In Process (Accu-Chek Comfort 17:00 Insulin R (Human) PHA 05/21/25 In Process (Insulin R) 17:00 Dextrose 50% Syringe PHA 05/21/25 In Process 12:30 Admit ADMIT 05/21/25 Transmitted 12:25 Sodium Chloride 0.9% PHA 05/21/25 In Process 12:30 Ondansetron Hcl PHA 05/21/25 In Process (Zofran) 12:30 Enoxaparin Sodium PHA 05/22/25 In Process (Lovenox) 10:00 Complete Blood Count LAB 05/22/25 Verified 04:00 Comprehensive LAB 05/22/25 Verified Metabolic Panel 04:00 Condition: Fair TALAT 05/21/25 In Process 12:25 Acetaminophen Tablet PHA 05/21/25 In Process (Tylenol Tablet) 12:30 Bedrest With Bathroom TALAT 05/21/25 In Process Privileg 12:25 Morphine Sulfate PHA 05/21/25 In Process Injection 12:30 Date of Service: May 21, 2025 Billing Provider: SHAWNA WESTFALL Common Visit Codes: [id number] INP/OBS CARE (HIGH) SHAWNA WESTFALL May 21, 2025 13:41
[2025-05-21] MEDS: KETOROLAC TROMETH 30 MG/ML 1ML VIAL IV PRN (15:59)
[2025-05-21] MEDS: InsuLIN REG 1unit/0.01ml Soln (100units/ml) SC SCH (17:00)
[2025-05-21] MEDS: ACCU-CHEK COMFORT CURVE STRIP VI SCH (17:00)
[2025-05-21] MEDS ORDERED: ACCU-CHEK COMFORT CURVE STRIP VI SCH (17:00)
[2025-05-21] MEDS ORDERED: InsuLIN REG 1unit/0.01ml Soln (100units/ml) SC SCH (17:00)
[2025-05-21] MEDS: ALPRAZolam 0.25 MG TAB PO SCH (22:46)
[2025-05-21] MEDS: SERTRALINE HCL 50 MG TAB PO SCH (22:46)
[2025-05-22] VITALS (8 sets, daily range): BP systolic 90–117; BP diastolic 52–79; PULSE 72–94; RESP 17–18; TEMP 97.8–98.4; O2SAT 92–95
[2025-05-22] MEDS: ACETAMINOPHEN 325 MG TAB PO PRN (06:36)
[2025-05-22 07:26] LABS: Hematocrit 43.0 % (36.0-46.0); Hemoglobin 14.2 g/dL (12.2-16.2); Mean Corpuscular Hemoglobin 28.9 pg (28.0-32.0); Mean Corpuscular Volume 87.7 fL (80.0-100.0); Nucleated Red Blood Cells % 0.1 %
[2025-05-22 07:53] LABS: Alanine Aminotransferase 23 U/L (7-40); Anion Gap 9 (5-15); BUN/Creatinine Ratio 14.6 (10.0-20.0); Blood Urea Nitrogen 12 mg/dL (9-23); Calcium 8.9 mg/dL (8.7-10.4); Carbon Dioxide 25 mmol/L (20-31); Chloride 102 mmol/L (98-107); Glucose 91 mg/dL (74-106); Potassium 4.2 mmol/L (3.5-5.1); Sodium 136 mmol/L (136-145); Total Protein 6.4 g/dL (5.7-8.2)
[2025-05-22 07:55] LABS: Albumin 3.7 g/dL (3.2-4.8); Bilirubin, Total 0.6 mg/dL (0.2-1.0)
[2025-05-22 07:56] LABS: Alkaline Phosphatase 28 U/L (46-116)
[2025-05-22] MEDS: PANTOPRAZOLE 40 MG/10 ML VIAL INJ IV SCH (08:43)
[2025-05-22] MEDS: ENOXAPARIN SOD 40 MG/0.4 ML SYRINGE SC SCH (08:43)
[2025-05-22] MEDS: hydroCHLOROthiazide 25 MG TAB PO SCH (08:44)
[2025-05-22] MEDS: LISINOPRIL 20 MG TAB PO SCH (08:44)
[2025-05-22] MEDS: CHOLECALCIFEROL (VITD3) 1,000UNIT=25mCg TAB PO SCH (08:44)
[2025-05-22] MEDS: ASPirin-EC 81 mg tab PO SCH (08:45)
[2025-05-22] MEDS ORDERED: BENAZEPRIL HCL 10 MG TAB PO SCH (10:00)
--- NOTE | 2025-05-22 11:06 | DVHPN2 ---
Progress Note Date Seen: May 22, 2025 Medical Necessity Reason Pt with a Central, PICC or Fol: No Subjective Patient reports: No new complaints Review of Systems: HEENT:Normal, CVS:Normal, RESPIRATORY:Normal, GI:Normal, :Normal, MSK:Normal, NEURO:Normal Objective vital signs Vital Sign Date Time Temp Pulse Resp B/P (MAP) Pulse Ox O2 Delivery O2 Flow Rate FiO2 05/22/25 08:49 98.1 80 18 109/75 (86) 92 98.1 05/22/25 08:00 Room Air* 0 21 Total Intake and Output 05/21/25 05/21/25 05/22/25 15:00 23:00 07:00 Intake Total 300 ml 130 ml 1300 ml Balance 300 ml 130 ml 1300 ml medications Current Medications Medications Dose Ordered Sig/Renae Route Start Time Stop Time Status Last Admin Dose Admin Metronidazole 100 ml @ 100 mls/hr Q8HR IV 05/21/25 14:00 05/22/25 06:37 100 MLS/HR Ceftriaxone Sodium 50 ml @ 100 mls/hr DAILY@09 IV 05/22/25 09:00 05/22/25 08:41 100 MLS/HR Pantoprazole Sodium 40 mg DAILY IV 05/22/25 10:00 05/22/25 08:43 40 MG Ketorolac Tromethamine 15 mg Q6HPRN PRN IV 05/21/25 12:30 05/26/25 12:29 05/21/25 22:46 15 MG Enoxaparin Sodium 40 mg DAILY SC 05/22/25 10:00 05/22/25 08:43 40 MG Morphine Sulfate 2 mg Q4HPRN PRN IV 05/21/25 12:30 Alprazolam 0.25 mg HS PO 05/21/25 22:00 05/21/25 22:46 0.25 MG Aspirin 81 mg DAILY PO 05/22/25 10:00 05/22/25 08:45 81 MG Cholecalciferol 2,000 unit DAILY PO 05/22/25 10:00 05/22/25 08:44 2,000 UNIT Lisinopril 20 mg DAILY PO 05/22/25 10:00 05/22/25 08:44 20 MG Sertraline HCl 100 mg BID PO 05/21/25 22:00 05/21/25 22:46 100 MG Diagnostic Test (Pha) 1 strip ACHS 05/21/25 17:00 05/22/25 06:06 1 STRIP Insulin Human Regular ACHS SC 05/21/25 17:00 Dextrose 50 ml UD PRN IV 05/21/25 13:45 Sodium Chloride 1,000 ml @ 75 mls/hr [id number] IV 05/21/25 13:45 05/22/25 03:05 75 MLS/HR Ondansetron HCl 4 mg Q4HP PRN IV 05/21/25 13:45 Acetaminophen 650 mg Q6HP PRN PO 05/21/25 13:45 05/22/25 06:36 650 MG Albuterol 2.5 mg Q2HPRN PRN NEB 05/21/25 13:45 Hydrochlorothiazide 25 mg DAILY PO 05/22/25 10:00 05/22/25 08:44 25 MG Examination: GENERAL:Normal, HEENT:Normal, NECK:Normal, LUNGS:Normal, CVS:Normal, ABDOMEN:Normal, ABDOMEN:Abnormal (left lower abd tenderness), MSK:Normal, SKIN:Normal, NEURO:Normal, :Normal laboratory and microbiology Laboratory Tests 05/22/25 05:51 Test 05/22/25 05:51 Range/Units Serum Glucose 91 74-106 mg/dL Microbiology Date/Time Source Procedure Growth Status 05/21/25 10:21 Blood Blood Culture - Preliminary NO GROWTH AFTER 24 HOURS OF INCUBATION. Resulted Problem List/Assessment/Plan Problem List/Assessment/Plan #1 acute diverticulitis with sepsis: ivf, iv antibiotics #2 htn #3 dm: ssi #4 h/o cva #5 tobacco abuse: advised to quit, refuses nicotine patch- bad dreams- time spent 12 mins advance care planning- full code- time spent 17 mins Plan discussed with: Patient My Orders My Orders Orders - RUSS HARMAN MD Procedure Category Date Status Time Basic Metabolic Panel LAB 05/23/25 Verified 06:00 Complete Blood Count LAB 05/23/25 Verified 06:00 Urinalysis LAB 05/22/25 Uncollected 11:02 Date of Service: May 22, 2025 Billing Provider: RUSS HARMAN MD Common Visit Codes: [id number] INP/OBS CARE(HIGH) Secondary Visit Codes: [id number] CHNG SMOKING >10MIN, [id number] CARE PLAN 30 MINUTES RUSS HARMAN MD May 22, 2025 11:06
[2025-05-22 18:28] LABS: Urine Budding Yeast OCCASIONAL /hpf (None Seen); Urine Protein, UAD TRACE (Negative)
[2025-05-22] MEDS: ONDANSETRON HCL 4 MG/2 ML VIAL IV PRN (18:50)
[2025-05-23] VITALS (7 sets, daily range): BP systolic 99–123; BP diastolic 66–79; PULSE 69–90; RESP 17–18; TEMP 97.4–98.6; O2SAT 92–98
[2025-05-23 07:25] LABS: Anion Gap 8 (5-15); Carbon Dioxide 28 mmol/L (20-31); Chloride 102 mmol/L (98-107); Potassium 3.8 mmol/L (3.5-5.1); Sodium 138 mmol/L (136-145)
[2025-05-23 07:26] LABS: Calcium 8.9 mg/dL (8.7-10.4)
[2025-05-23 07:27] LABS: Hematocrit 38.9 % (36.0-46.0); Hemoglobin 12.8 g/dL (12.2-16.2); Mean Corpuscular Hemoglobin 29.1 pg (28.0-32.0); Mean Corpuscular Volume 88.2 fL (80.0-100.0); Nucleated Red Blood Cells % 0.1 %
[2025-05-23 07:31] LABS: BUN/Creatinine Ratio 15.7 (10.0-20.0); Blood Urea Nitrogen 11 mg/dL (9-23); Glucose 78 mg/dL (74-106)
--- NOTE | 2025-05-23 10:48 | DVHPN2 ---
Progress Note Date Seen: May 23, 2025 Medical Necessity Reason Pt with a Central, PICC or Fol: No Subjective Patient reports: No new complaints Review of Systems: HEENT:Normal, CVS:Normal, RESPIRATORY:Normal, GI:Normal, :Normal, MSK:Normal, NEURO:Normal Objective vital signs Vital Sign Date Time Temp Pulse Resp B/P (MAP) Pulse Ox O2 Delivery O2 Flow Rate FiO2 05/23/25 09:41 97.4 05/23/25 09:28 92 Room Air 05/23/25 09:28 0 21 05/23/25 08:45 87 18 113/77 (89) Total Intake and Output 05/22/25 05/22/25 05/23/25 15:00 23:00 07:00 Intake Total 900 ml 800 ml Balance 900 ml 800 ml medications Current Medications Medications Dose Ordered Sig/Renae Route Start Time Stop Time Status Last Admin Dose Admin Metronidazole 100 ml @ 100 mls/hr Q8HR IV 05/21/25 14:00 05/23/25 06:22 100 MLS/HR Ceftriaxone Sodium 50 ml @ 100 mls/hr DAILY@09 IV 05/22/25 09:00 05/23/25 08:39 100 MLS/HR Pantoprazole Sodium 40 mg DAILY IV 05/22/25 10:00 05/23/25 08:39 40 MG Ketorolac Tromethamine 15 mg Q6HPRN PRN IV 05/21/25 12:30 05/26/25 12:29 05/23/25 06:21 15 MG Morphine Sulfate 2 mg Q4HPRN PRN IV 05/21/25 12:30 Alprazolam 0.25 mg HS PO 05/21/25 22:00 05/22/25 21:23 0.25 MG Aspirin 81 mg DAILY PO 05/22/25 10:00 05/23/25 08:39 81 MG Sertraline HCl 100 mg BID PO 05/21/25 22:00 05/22/25 21:23 100 MG Diagnostic Test (Pha) 1 strip ACHS 05/21/25 17:00 05/23/25 06:16 1 STRIP Insulin Human Regular ACHS SC 05/21/25 17:00 Dextrose 50 ml UD PRN IV 05/21/25 13:45 Sodium Chloride 1,000 ml @ 75 mls/hr [id number] IV 05/21/25 13:45 05/23/25 05:45 75 MLS/HR Ondansetron HCl 4 mg Q4HP PRN IV 05/21/25 13:45 05/22/25 18:50 4 MG Acetaminophen 650 mg Q6HP PRN PO 05/21/25 13:45 05/23/25 08:41 650 MG Albuterol 2.5 mg Q2HPRN PRN NEB 05/21/25 13:45 Examination: GENERAL:Normal, HEENT:Normal, NECK:Normal, LUNGS:Normal, CVS:Normal, ABDOMEN:Normal, MSK:Normal, SKIN:Normal, NEURO:Normal, :Normal laboratory and microbiology Laboratory Tests 05/23/25 05:30 Test 05/23/25 05:30 Range/Units Serum Glucose 78 74-106 mg/dL Microbiology Date/Time Source Procedure Growth Status 05/21/25 10:21 Blood Blood Culture - Preliminary NO GROWTH AFTER 48 HOURS OF INCUBATION. Resulted Problem List/Assessment/Plan Problem List/Assessment/Plan #1 acute diverticulitis with sepsis: ivf, iv antibiotics #2 htn #3 dm: ssi #4 h/o cva #5 tobacco abuse: advised to quit, refuses nicotine patch- bad dreams- time spent 12 mins #6 diarrhea: check c diff advance care planning- full code- time spent 17 mins Plan discussed with: Patient Date of Service: May 23, 2025 Billing Provider: RUSS HARMAN MD Common Visit Codes: [id number] INP/OBS CARE(HIGH) RUSS HARMAN MD May 23, 2025 10:48
[2025-05-24] VITALS (9 sets, daily range): BP systolic 97–143; BP diastolic 45–90; PULSE 60–81; RESP 16–19; TEMP 97.5–98.3; O2SAT 94–99
[2025-05-24 07:05] LABS: Hematocrit 37.5 % (36.0-46.0); Hemoglobin 12.8 g/dL (12.2-16.2); Mean Corpuscular Hemoglobin 29.4 pg (28.0-32.0); Mean Corpuscular Volume 86.5 fL (80.0-100.0); Nucleated Red Blood Cells % 0.1 %
[2025-05-24 07:14] LABS: Chloride 105 mmol/L (98-107); Potassium 4.1 mmol/L (3.5-5.1); Sodium 142 mmol/L (136-145)
[2025-05-24 07:15] LABS: Anion Gap 7 (5-15); Calcium 8.9 mg/dL (8.7-10.4); Carbon Dioxide 30 mmol/L (20-31)
[2025-05-24 07:20] LABS: BUN/Creatinine Ratio 21.1 (10.0-20.0); Blood Urea Nitrogen 16 mg/dL (9-23); Glucose 100 mg/dL (74-106)
--- NOTE | 2025-05-24 10:17 | DVHPN2 ---
Progress Note Date Seen: May 24, 2025 Medical Necessity Reason Pt with a Central, PICC or Fol: No Subjective Patient reports: No new complaints Review of Systems: HEENT:Normal, CVS:Normal, RESPIRATORY:Normal, GI:Normal, :Normal, MSK:Normal, NEURO:Normal Objective vital signs Vital Sign Date Time Temp Pulse Resp B/P (MAP) Pulse Ox O2 Delivery O2 Flow Rate FiO2 05/24/25 09:00 97.5 74 18 136/87 (103) 99 97.5 05/24/25 06:25 Room Air* 0 21 Total Intake and Output 05/23/25 05/23/25 05/24/25 15:00 23:00 07:00 Intake Total 752 ml 900 ml Balance 752 ml 900 ml medications Current Medications Medications Dose Ordered Sig/Renae Route Start Time Stop Time Status Last Admin Dose Admin Ceftriaxone Sodium 50 ml @ 100 mls/hr DAILY@09 IV 05/22/25 09:00 05/23/25 08:39 100 MLS/HR Pantoprazole Sodium 40 mg DAILY IV 05/22/25 10:00 05/23/25 08:39 40 MG Ketorolac Tromethamine 15 mg Q6HPRN PRN IV 05/21/25 12:30 05/26/25 12:29 05/24/25 05:41 15 MG Morphine Sulfate 2 mg Q4HPRN PRN IV 05/21/25 12:30 Aspirin 81 mg DAILY PO 05/22/25 10:00 05/23/25 08:39 81 MG Diagnostic Test (Pha) 1 strip ACHS 05/21/25 17:00 05/24/25 05:44 1 STRIP Insulin Human Regular ACHS SC 05/21/25 17:00 Dextrose 50 ml UD PRN IV 05/21/25 13:45 Sodium Chloride 1,000 ml @ 75 mls/hr [id number] IV 05/21/25 13:45 05/24/25 08:25 75 MLS/HR Ondansetron HCl 4 mg Q4HP PRN IV 05/21/25 13:45 05/22/25 18:50 4 MG Acetaminophen 650 mg Q6HP PRN PO 05/21/25 13:45 05/23/25 08:41 650 MG Albuterol 2.5 mg Q2HPRN PRN NEB 05/21/25 13:45 Alprazolam 0.25 mg Q8HP PRN PO 05/24/25 10:15 UNV Metronidazole 500 mg Q8HR PO 05/24/25 14:00 UNV Saccharomyces Boulardii 250 mg DAILY PO 05/25/25 10:00 UNV Examination: GENERAL:Normal, HEENT:Normal, NECK:Normal, LUNGS:Normal, CVS:Normal, ABDOMEN:Normal, MSK:Normal, SKIN:Normal, NEURO:Normal, :Normal laboratory and microbiology Laboratory Tests 05/24/25 06:14 05/24/25 05:44 Test 05/24/25 06:14 Range/Units Serum Glucose 100 74-106 mg/dL Microbiology Date/Time Source Procedure Growth Status 05/21/25 10:21 Blood Blood Culture - Preliminary NO GROWTH AFTER 48 HOURS OF INCUBATION. Resulted Problem List/Assessment/Plan Problem List/Assessment/Plan #1 acute diverticulitis with sepsis: ivf, iv antibiotics #2 htn #3 dm: ssi #4 h/o cva #5 tobacco abuse: advised to quit, refuses nicotine patch- bad dreams- time spent 12 mins #6 diarrhea: check c diff advance care planning- full code- time spent 17 mins Plan discussed with: Patient My Orders My Orders Orders - RUSS HARMAN MD Procedure Category Date Status Time Regular Diet DIET 05/23/25 Transmitted Lunch Clostridium Difficile IFRAH 05/23/25 In Process Toxin 11:37 Alprazolam Tablet PHA 05/24/25 Logged (Xanax Tablet) 10:15 Metronidazole Tablet PHA 05/24/25 Logged (Flagyl Tablet) 14:00 Florastor (S. PHA 05/25/25 Logged Boulardii) (Florastor) 10:00 Date of Service: May 24, 2025 Billing Provider: RUSS HARMAN MD Common Visit Codes: [id number] INP/OBS CARE(HIGH) RUSS HARMAN MD May 24, 2025 10:17
[2025-05-24] MEDS: ALPRAZolam 0.25 MG TAB PO PRN (12:23)
[2025-05-24] MEDS: metroNIDAZOLE 500 MG TAB PO SCH (16:17)
[2025-05-25] VITALS (10 sets, daily range): BP systolic 111–154; BP diastolic 58–94; PULSE 60–79; RESP 17–19; TEMP 97–98.1; O2SAT 95–97
[2025-05-25] MEDS: FLORASTOR (S. BOULARDII) 250 MG CAP PO SCH (09:39)
--- NOTE | 2025-05-25 10:40 | DVHPN2 ---
Progress Note Date Seen: May 25, 2025 Medical Necessity Reason Pt with a Central, PICC or Fol: No Subjective Patient reports: No new complaints Review of Systems: HEENT:Normal, CVS:Normal, RESPIRATORY:Normal, GI:Normal, :Normal, MSK:Normal, NEURO:Normal Objective vital signs Vital Sign Date Time Temp Pulse Resp B/P (MAP) Pulse Ox O2 Delivery O2 Flow Rate FiO2 05/25/25 10:08 96 Room Air 05/25/25 10:08 0 21 05/25/25 05:00 97.4 60 18 111/58 (75) 97.4 Total Intake and Output 05/24/25 05/24/25 05/25/25 15:00 23:00 07:00 Intake Total 1800 ml 500 ml Balance 1800 ml 500 ml medications Current Medications Medications Dose Ordered Sig/Renae Route Start Time Stop Time Status Last Admin Dose Admin Ceftriaxone Sodium 50 ml @ 100 mls/hr DAILY@09 IV 05/22/25 09:00 05/25/25 08:30 100 MLS/HR Pantoprazole Sodium 40 mg DAILY IV 05/22/25 10:00 05/25/25 09:39 40 MG Ketorolac Tromethamine 15 mg Q6HPRN PRN IV 05/21/25 12:30 05/26/25 12:29 05/25/25 05:40 15 MG Morphine Sulfate 2 mg Q4HPRN PRN IV 05/21/25 12:30 Aspirin 81 mg DAILY PO 05/22/25 10:00 05/25/25 09:39 81 MG Diagnostic Test (Pha) 1 strip ACHS 05/21/25 17:00 05/25/25 06:09 1 STRIP Insulin Human Regular ACHS SC 05/21/25 17:00 Dextrose 50 ml UD PRN IV 05/21/25 13:45 Sodium Chloride 1,000 ml @ 75 mls/hr [id number] IV 05/21/25 13:45 05/24/25 21:49 75 MLS/HR Ondansetron HCl 4 mg Q4HP PRN IV 05/21/25 13:45 05/22/25 18:50 4 MG Acetaminophen 650 mg Q6HP PRN PO 05/21/25 13:45 05/23/25 08:41 650 MG Albuterol 2.5 mg Q2HPRN PRN NEB 05/21/25 13:45 Alprazolam 0.25 mg Q8HP PRN PO 05/24/25 10:15 05/25/25 08:13 0.25 MG Metronidazole 500 mg Q8HR PO 05/24/25 14:00 05/25/25 05:38 500 MG Saccharomyces Boulardii 250 mg DAILY PO 05/25/25 10:00 05/25/25 09:39 250 MG Examination: GENERAL:Normal, HEENT:Normal, NECK:Normal, LUNGS:Normal, CVS:Normal, ABDOMEN:Normal, MSK:Normal, SKIN:Normal, NEURO:Normal, :Normal laboratory and microbiology Laboratory Tests 05/24/25 06:14 05/24/25 05:44 Test 05/24/25 06:14 Range/Units Serum Glucose 100 74-106 mg/dL Microbiology Date/Time Source Procedure Growth Status 05/23/25 11:10 Stool Clostridium difficile Toxin Assay - Final Complete 05/21/25 10:21 Blood Blood Culture - Preliminary NO GROWTH AFTER 72 HOURS OF INCUBATION. Resulted Problem List/Assessment/Plan Problem List/Assessment/Plan #1 acute diverticulitis with sepsis: ivf, iv antibiotics #2 htn #3 dm: ssi #4 h/o cva #5 tobacco abuse: advised to quit, refuses nicotine patch- bad dreams- time spent 12 mins #6 diarrhea: check c diff- negative advance care planning- full code- time spent 17 mins Plan discussed with: Patient Date of Service: May 25, 2025 Billing Provider: RUSS HARMAN MD Common Visit Codes: [id number] INP/OBS CARE(HIGH) RUSS HARMAN MD May 25, 2025 10:40
[2025-05-25] MEDS: LOPERAMIDE HCL 2 MG CAP/TAB PO ONE (13:46)
[2025-05-26] VITALS (10 sets, daily range): BP systolic 109–150; BP diastolic 75–96; PULSE 66–80; RESP 18–94; TEMP 36.7; O2SAT 94–99
[2025-05-26] MEDS: ALBUTEROL SULF 2.5 MG/0.5ML(0.5%) NEB SOLN NEB PRN (08:36)
--- NOTE | 2025-05-26 16:43 | DVHDS2 ---
Discharge Summary Date of Admission May 21, 2025 at 12:25 Date of Discharge: May 26, 2025 Labs/Diagnostic Data: Laboratory Results Test 05/26/25 11:28 05/24/25 06:14 05/24/25 05:44 05/22/25 17:56 POC Glucose 115 mg/dl (70-106) Sodium Level 142 mmol/L (136-145) Potassium Level 4.1 mmol/L (3.5-5.1) Chloride Level 105 mmol/L (98-107) Carbon Dioxide Level 30 mmol/L (20-31) Anion Gap 7 (5-15) Blood Urea Nitrogen 16 mg/dL (9-23) Creatinine 0.76 mg/dL (0.550-1.02) Glomerular Filtration Rate Calc 91 mL/min (>90) BUN/Creatinine Ratio 21.1 (10.0-20.0) Serum Glucose 100 mg/dL (74-106) Calcium Level 8.9 mg/dL (8.7-10.4) White Blood Count 5.9 10^3/uL (4.4-10.8) Red Blood Count 4.33 10^6/uL (4.0-5.20) Hemoglobin 12.8 g/dL (12.2-16.2) Hematocrit 37.5 % (36.0-46.0) Mean Corpuscular Volume 86.5 fL (80.0-100.0) Mean Corpuscular Hemoglobin 29.4 pg (28.0-32.0) Mean Corpuscular Hemoglobin Concent 34.1 g/dL (32.0-36.0) Red Cell Distribution Width 13.6 % (11.8-14.3) Platelet Count 262 10^3/uL (140-450) Mean Platelet Volume 8.4 fL (6.9-10.8) Neutrophils (%) (Auto) 53.8 % (37.0-80.0) Lymphocytes (%) (Auto) 33.3 % (10.0-50.0) Monocytes (%) (Auto) 10.9 % (0.0-12.0) Eosinophils (%) (Auto) 1.4 % (0.0-7.0) Basophils (%) (Auto) 0.6 % (0.0-2.0) Neutrophils # (Auto) 3.2 10 ^3/uL (1.6-8.6) Lymphocytes # (Auto) 2.0 10 ^3/uL (0.4-5.4) Monocytes # (Auto) 0.6 10 ^3/uL (0-1.3) Eosinophils # (Auto) 0.1 10 ^3/uL (0-0.8) Basophils # (Auto) 0 10 ^3/uL (0-0.2) Nucleated Red Blood Cells 0.1 % Urine Color Yellow (Yellow) Urine Clarity Turbid (Clear) Urine pH 5.5 (5.0-9.0) Urine Specific [place] 1.035 (1.001-1.035) Urine Protein Trace (Negative) Urine Ketones Trace (Negative) Urine Blood Negative /uL (Negative) Urine Nitrite Negative (Negative) Urine Bilirubin Negative (Negative) Urine Urobilinogen Normal mg/dL (Negative) Urine Leukocyte Esterase 1+ /uL (Negative) Urine RBC 3 /hpf (0 - 4) Urine Microscopic WBC 2 /HPF (0-5) Urine Squamous Epithelial Cells Mod /hpf (<5) Urine Bacteria Few /hpf (None Seen) Urine Mucus Few (None Seen) Urine Yeast (Budding) Occasional /hpf (None Urine Glucose Normal mg/dL (Normal) Test 05/22/25 05:51 05/21/25 10:21 Total Bilirubin 0.6 mg/dL (0.2-1.0) Aspartate Amino Transferase (AST) 16 U/L (13-40) Alanine Aminotransferase (ALT) 23 U/L (7-40) Alkaline Phosphatase 28 U/L (46-116) Total Protein 6.4 g/dL (5.7-8.2) Albumin 3.7 g/dL (3.2-4.8) Lactic Acid Level 1.2 mmol/L (0.4-2.0) Other Laboratory Tests 05/24/25 06:14 05/24/25 05:44 Brief Hx & Hospital Course: This is a 55-year-old female with history of anxiety, COPD, depression, type 2 DM, hyperlipidemia, hypertension, TIA and PUD presents to ED with chief complaint of abdominal pain associated with nausea, vomiting and diarrhea x3 days. Patient reports previously admitted and discharged from this facility for diverticulitis on 05/15/2025 and was placed on antibiotics. The patient states that she has been intermittently taking antibiotics due to nausea and vomiting. She reports that her symptoms has not resolved and in fact is getting progressively worse and due to this would like to be admitted at this facility. The patient will be admitted under hospitalist care to the medical-surgical unit. The patient denies fever, chills, headache, dizziness, palpitation, shortness of breath, chest pain, constipation and other associated symptoms. The plan has been discussed with the patient and primary RN in which all questions concerns have been addressed. Patient is found to have on CT acute colonic diverticulitis, patient admitted for acute care. Started on IV fluids, IV antibiotics, IV pain control, NPO status. Improving over next few days, tolerating p.o. now. Pain improved. Stable for discharge as per plan below. Diagnosis: #1 acute diverticulitis with sepsis #2 htn #3 dm: #4 h/o cva #5 tobacco abuse #6 diarrhea, resolving Plan: Take Augmentin 875 twice daily for 5 days Take full liquid diet for 1 week For pain 1st line Tylenol, second-line ibuprofen, 3rd line take prescription [place] as needed for 3 times daily Continue taking other home medications Follow up with PCP to review discharge Condition at Discharge: Fair Final Diagnosis/Problems List #1 acute diverticulitis with sepsis #2 htn #3 dm: #4 h/o cva #5 tobacco abuse #6 diarrhea, resolving Discharge Disposition: Home Discharge Instruct/Medications Scheduled Alprazolam (Xanax), 1 TAB PO HS, (Reported) Aspirin (Aspirin Low Dose), 1 TAB PO DAILY, (Reported) Benazepril Hcl (Lotensin), 1 TAB PO DAILY, (Reported) Cholecalciferol (Vitamin D3), 1 CAP PO DAILY, (Reported) Lisinopril & Hydrochlorothiazi (Lisinopril/Hydrochlorothi), 1 TAB PO DAILY, (Reported) Sertraline Hcl (Zoloft), 100 MG PO BID, (Reported) Scheduled PRN Albuterol Sulfate (Albuterol Sulfate Hfa), 2 PUFF PO Q6HPRN PRN for wheezing, (Reported) Discharge Statement: "Patient was advised to return to the ER or call 911 if any headaches, dizziness, shortness of breath, chest pain, abdominal pain, bleeding, fevers, or worsening of medical condition. Patient was counseled about treatment plan, medications, possible side effects, patientverbalized understanding. All questions were answered to the best of my ability. This discharge took greater then 30 minutes in planning, reviewing documentation, counseling the patient, and discussing with other team members." ASSESSMENT ASSESSMENT Assessment Date of Service: May 26, 2025 Billing Provider: WILD MONZON MD Common Visit Codes: 27711-ZMM/OBS DISCH DAY >30min WILD MONZON MD May 26, 2025 16:43
[2025-05-26] MEDS ORDERED: AUG875T PO (16:45)
[2025-05-26] MEDS ORDERED: HYDR-4902 PO (16:45)
[2025-05-26] MEDS ORDERED: ALPR0.5T PO (16:45)
[2025-05-26] MEDS ORDERED: ZOFR4T PO (16:45)
== END 2025-05-26 18:20 | disposition home or self-care (01) | DRG 720 ==
LOC: ER 10:00 → OVERFLOW 12:25 → EAST 15:41
PROVIDERS: ADMIT Student in an Organized Health Care Education/Training Program; ATTEND Student in an Organized Health Care Education/Training Program
DX: A41.9 Sepsis, unspecified organism (principal); E11.9 Type 2 diabetes mellitus without complications; K57.32 Diverticulitis of large intestine without perforation or abscess without bleeding; F32.A Depression, unspecified; J44.9 Chronic obstructive pulmonary disease, unspecified; I10 Essential (primary) hypertension; F41.9 Anxiety disorder, unspecified; F17.210 Nicotine dependence, cigarettes, uncomplicated; K59.00 Constipation, unspecified; E78.5 Hyperlipidemia, unspecified; Z79.2 Long term (current) use of antibiotics; Z79.899 Other long term (current) drug therapy; Z87.11 Personal history of peptic ulcer disease; Z86.73 Personal history of transient ischemic attack (TIA), and cerebral infarction without residual deficits; Z82.3 Family history of stroke
CPT/HCPCS: 36415; 74176; 80048; 80053; 81001; 82962; 83605; 85025; 87040; 87493; 94640; G0378; J1885; J2405; J2470; J3490